=== PATIENT | male | born 1970 | race Caucasian/White ===

== ENCOUNTER 2019-11-13 07:50 | Outpatient (RCR) | payer SELFPAY | END 2019-11-26 00:01 | LOC: WOUND 07:50 | PROVIDERS: Visit Provider Nurse Practitioner Family | DX: E11.621 Type 2 diabetes mellitus with foot ulcer (principal); L97.522 Non-pressure chronic ulcer of other part of left foot with fat layer exposed; L97.423 Non-pressure chronic ulcer of left heel and midfoot with necrosis of muscle; T81.89XA Other complications of procedures, not elsewhere classified, initial encounter; Y83.8 Other surgical procedures as the cause of abnormal reaction of the patient, or of later complication, without mention of misadventure at the time of the procedure | CPT/HCPCS: 11043; 80053; 85025; 96365 ×8; G0463 ×7; J0696 ×7; J2250; J2704 ×2; J3010 ==

== ENCOUNTER 2019-11-14 13:34 | Inpatient (IN) | payer SELFPAY | END 2019-11-19 13:39 | disposition home or self-care (01) | DRG 617 | PROVIDERS: Admitting Provider Student in an Organized Health Care Education/Training Program; Visit Provider Student in an Organized Health Care Education/Training Program | DX: E11.69 Type 2 diabetes mellitus with other specified complication (principal); M86.8X7 Other osteomyelitis, ankle and foot; I96 Gangrene, not elsewhere classified; Z79.4 Long term (current) use of insulin; E11.65 Type 2 diabetes mellitus with hyperglycemia; Z87.891 Personal history of nicotine dependence; Z23 Encounter for immunization ==

== ENCOUNTER 2019-11-25 08:36 | Outpatient (RCR) | payer SELFPAY | END 2019-11-26 00:01 | LOC: GILAB 08:36 | PROVIDERS: Visit Provider Student in an Organized Health Care Education/Training Program | DX: M86.8X8 Other osteomyelitis, other site (principal) | CPT/HCPCS: 36592; 80053; 85025; 96365 ×7; G0463 ×7; J0696 ×7 ==

== ENCOUNTER → 2019-11-25 | Outpatient (CLI) | payer SELFPAY | PROVIDERS: Visit Provider Podiatrist Foot & Ankle Surgery | DX: Z98.890 Other specified postprocedural states (principal) | CPT/HCPCS: L4361 ==

== ENCOUNTER 2019-12-05 15:00 | Outpatient (RCR) | payer MEDICAID, SELFPAY ==
[2019-11-27 08:52] VITALS: BP 123/86; PULSE 100; RESP 18; O2SAT 100; BMI 26.6
[2019-11-27] MEDS: cefTRIAXone 1,000 MG in sodium chloride 0.9% (plus) 50 ML 100 MG IV (09:00)
[2019-11-27 09:32] VITALS: BP 123/86; PULSE 100; RESP 18; TEMP 36.5; O2SAT 100
[2019-11-28 09:44] VITALS: BP 117/74; PULSE 104; RESP 20; TEMP 37.3; O2SAT 95
[2019-11-28] MEDS: cefTRIAXone 1,000 MG in sodium chloride 0.9% (plus) 50 ML 100 MG IV (09:44)
[2019-11-28 10:22] LABS: Alanine Aminotransferase 5 U/L (0-41); Albumin Level 4.8 g/dL (3.5-5.2); Alkaline Phosphatase 78 IU/L (40-130); Anion Gap 17.3 (5-19); Aspartate Amino Transferase 10 U/L (0-40); Blood Urea Nitrogen 10 mg/dL (6-20); Calcium 9.5 mg/Dl (8.6-10.0); Carbon Dioxide 27 mmol/L (22-29); Chloride 103 mmol/L (98-107); Globulin 1.9 g/dL (1.3-4.6); Glomerular Filtration Rate 90.4 mL/min (90-130); Glucose 168 mg/dL (74-109); Potassium 4.3 mmol/L (3.5-5.1); Sodium 143 mmol/L (136-145); Total Bilirubin 0.3 mg/dL (0.15-1.2); Total Protein 6.7 g/dL (6.6-8.7)
[2019-11-28 10:23] LABS: Hematocrit 41.4 % (42.0-52.0); Hemoglobin 13.6 g/dL (11.7-16.6); Mean Corpuscular HGB Conc 32.9 g/dL (30.0-36.0); Mean Corpuscular Hemoglobin 27.8 pg (28.0-34.0); Mean Corpuscular Volume 84.7 fL (80-94); Mean Platelet Volume 12.1 fL (7.4-10.4); Platelet Count 177 10^3/cmm (130-400); Red Blood Count 4.89 10^6/uL (4.1-5.3); Red Cell Distribution Width 13.3 % (12.1-15.1); White Blood Count 6.8 10^3/uL (4.0-10.0)
[2019-11-28 10:30] LABS: Absolute Eosinophils 0.6 10^3/cmm (0.0-0.7); Absolute Segmented Neutrophil 3.7 10/cmm (1.6-7.1); Band Neutrophils Absolute 0.3 10^3/cmm (0.0-1.2); Basophils Absolute 0.1 10^3/cmm (0.0-0.2); Eosinophils 9 %; Lymphocytes 20 %; Monocytes Absolute 0.7 10^3/cmm (0.1-0.6); Segmented Neutrophils 55 %; Total Cells Counted 100 (0-100)
[2019-11-28 10:31] LABS: Giant Platelets 1+; Platelet Estimate Normal (Normal)
[2019-11-29 08:52] VITALS: BP 130/86; PULSE 72; RESP 18; TEMP 36.8; O2SAT 97
[2019-11-29] MEDS: cefTRIAXone 1,000 MG in sodium chloride 0.9% (plus) 50 ML 100 MG IV (09:28)
[2019-11-30 08:40] VITALS: BP 141/88; PULSE 97; RESP 18; TEMP 36.1; O2SAT 97
[2019-11-30] MEDS: cefTRIAXone 1,000 MG in sodium chloride 0.9% (plus) 50 ML 100 MG IV (09:00)
[2019-12-01] MEDS: cefTRIAXone 1,000 MG in sodium chloride 0.9% (plus) 50 ML 100 MG IV (08:34)
[2019-12-01 08:43] VITALS: BP 139/87; PULSE 95; RESP 18; TEMP 36.7; O2SAT 98
[2019-12-02] MEDS: cefTRIAXone 1,000 MG in sodium chloride 0.9% (plus) 50 ML 100 MG IV (09:00)
[2019-12-02 09:14] VITALS: BP 130/89; PULSE 94; RESP 18; TEMP 37.1; O2SAT 98
--- NOTE | 2019-12-02 09:54 | SUR.OPER ---
RIGHT UPPER ARM CIRCUMFERENCE 31CM. PICC LINE FLUSHED WITH 10ML OF STERILE SALINE. PT DC'ED IN STABLE CONDITION.
[2019-12-03 08:40] VITALS: BP 136/84; PULSE 95; RESP 18; TEMP 37.1; O2SAT 99
[2019-12-03] MEDS: cefTRIAXone 1,000 MG in sodium chloride 0.9% (plus) 50 ML 100 MG IV (08:47)
[2019-12-04 08:57] VITALS: BP 131/83; PULSE 99; RESP 18; TEMP 36.8; O2SAT 98
--- NOTE | 2019-12-04 09:35 | SUR.OPER ---
RIGHT ARM CIRCUMFERENCE 31CM.
[2019-12-04] MEDS: cefTRIAXone 1,000 MG in sodium chloride 0.9% (plus) 50 ML 100 MG IV (09:54)
[2019-12-04 10:14] LABS: Basophils # 0.1 10^3/uL (0.0-0.1); Basophils % 0.8 %; Eosinophils # 0.8 10^3/uL (0.0-0.8); Hematocrit 43.7 % (42.0-52.0); Hemoglobin 14.2 g/dL (11.7-16.6); Lymphocytes # 1.5 10^3/uL (0.8-4.8); Lymphocytes % 23.5 %; Mean Corpuscular HGB Conc 32.5 g/dL (30.0-36.0); Mean Corpuscular Hemoglobin 28.7 pg (28.0-34.0); Mean Corpuscular Volume 88.3 fL (80-94); Monocytes # 0.4 10^3/uL (0.2-0.9); Monocytes % 6.7 %; Neutrophils # 3.6 10^3/uL (1.8-7.7); Neutrophils % 55.7 %; Nucleated Red Blood Cells % 0 %; Platelet Count 149 10^3/cmm (130-400); Red Blood Count 4.95 10^6/uL (4.1-5.3); Red Cell Distribution Width 13.8 % (12.1-15.1); White Blood Count 6.5 10^3/uL (4.0-10.0)
[2019-12-04 10:19] LABS: Alanine Aminotransferase 9 U/L (0-41); Albumin Level 4.2 g/dL (3.5-5.2); Alkaline Phosphatase 78 IU/L (40-130); Anion Gap 14.2 (5-19); Aspartate Amino Transferase 12 U/L (0-40); Blood Urea Nitrogen 11 mg/dL (6-20); Calcium 9.7 mg/Dl (8.6-10.0); Carbon Dioxide 30 mmol/L (22-29); Chloride 101 mmol/L (98-107); Globulin 2.7 g/dL (1.3-4.6); Glomerular Filtration Rate 120.9 mL/min (90-130); Glucose 186 mg/dL (74-109); Potassium 4.2 mmol/L (3.5-5.1); Sodium 141 mmol/L (136-145); Total Bilirubin 0.2 mg/dL (0.15-1.2); Total Protein 6.9 g/dL (6.6-8.7)
[2019-12-05 08:52] VITALS: BP 138/81; PULSE 99; RESP 18; TEMP 36.9
[2019-12-05] MEDS: cefTRIAXone 1,000 MG in sodium chloride 0.9% (plus) 50 ML 100 MG IV (09:08)
[2019-12-05 15:35] VITALS: BP 117/75; PULSE 94; RESP 18; TEMP 37.3; O2SAT 97
== END 2019-12-27 23:59 | disposition home or self-care (01) ==
LOC: OPS 15:00
PROVIDERS: Visit Provider Student in an Organized Health Care Education/Training Program
DX: M86.9 Osteomyelitis, unspecified (principal)
CPT/HCPCS: 36415; 36592; 80053; 85007; 85025; 85027; 96365; J0696

== ENCOUNTER 2019-12-06 12:18 | Outpatient (RCR) | payer OTHER, SELFPAY | END 2019-12-06 12:18 | disposition home or self-care (01) | LOC: GILAB 12:18 | PROVIDERS: Visit Provider Podiatrist Foot & Ankle Surgery | DX: M86.9 Osteomyelitis, unspecified (principal) ==

== ENCOUNTER 2020-05-05 13:21 | Outpatient (CLI) | payer MEDICAID, SELFPAY ==
--- NOTE | 2020-05-05 13:27 | USCV_ITS ---
Jose Juan Collins Age: 50 Gender: M : 1970 Exam Date: 05/05/2020 13:34 Ordering Phys: Ty Andre NP Technologist: Cristina Pelayo Exam Location: [facility] [place] BP: 115 / 60 HR: 93 Rhythm: Sinus Technical Quality: Adequate MEASUREMENTS (Male / Female) Normal Values 2D ECHO LV Diastolic Diameter PLAX 5.0 cm 4.2 - 5.9 / 3.9 - 5.3 cm LV Systolic Diameter PLAX 4.1 cm LV Chamber Size 4.4 cm IVS Diastolic Thickness 1.6 cm 0.6 - 1.0 / 0.6 - 0.9 cm IVS Systolic Thickness 1.6 cm LVPW Diastolic Thickness 2.3 cm 0.6 - 1.0 / 0.6 - 0.9 cm LVPW Systolic Thickness 1.5 cm RV Chamber Size 2.3 cm LVOT Diameter 2.0 cm LV Ejection Fraction 2D Teich 36.8 % LV Ejection Fraction MOD 2C 53.1 % LV Ejection Fraction 2C AL 52.4 % LA Diameter 4.4 cm LA Width 2.5 cm LA Height 4.7 cm RA Width 2.5 cm RA Height 4.4 cm Aorta at Sinotubular Diameter 3.6 cm M-MODE LV Diastolic Diameter MM 6.2 cm 4.2 - 5.9 / 3.9 - 5.3 cm LV Systolic Diameter MM 4.3 cm LV Ejection Fraction MM Teich 58.6 % IVS Diastolic Thickness MM 1.0 cm 0.6 - 1.0 / 0.6 - 0.9 cm IVS Systolic Thickness MM 1.1 cm LVPW Diastolic Thickness MM 0.8 cm 0.6 - 1.0 / 0.6 - 0.9 cm LVPW Systolic Thickness MM 1.5 cm Aortic Annulus Diameter 3.9 cm LA Ao Ratio MM 1.1 MV E Point Septal Separation 0.9 cm DOPPLER AV Peak Velocity 126.0 cm/s LVOT Peak Velocity 94.0 cm/s AV Area Cont Eq vti 2.5 cm squared AV Area Cont Eq pk 2.4 cm squared MV Area PHT 4.5 cm squared Mitral E to A Ratio 0.8 MV E' Velocity 46.0 cm/s Mitral E to MV E' Ratio 4.6 Mitral E to LV E' Lateral Ratio 4.1 Mitral E to LV E' Septal Ratio 5.2 TR Peak Velocity 187.0 cm/s TR Peak Gradient 14.0 mmHg TV Peak E Velocity 70.0 cm/s Right Atrial Pressure 3.0 mmHg Pulmonary Artery Systolic Pressu 17.0 mmHg PV Peak Velocity 84.0 cm/s RV Acceleration Time 0.1 s RV Ejection Time 0.2 s RV AcT/ET 0.5 FINDINGS Left Ventricle Normal left ventricular size, systolic function and wall thickness, with no regional wall motion abnormalities. Normal left ventricular wall thickness. Normal diastolic filling pattern. Left ventricular ejection fraction is estimated at 60 %. Right Ventricle The right ventricle is normal in size and function. Right Atrium The right atrium is normal in size. Left Atrium The left atrium is normal in size. Mitral Valve Structurally normal mitral valve without significant stenosis or prolapse. There is no mitral regurgitation. Aortic Valve Structurally normal aortic valve without significant sclerosis or stenosis. There is no aortic regurgitation. Tricuspid Valve Structurally normal tricuspid valve without significant stenosis or regurgitation. Pulmonary artery systolic pressure is normal. Pulmonic Valve Structurally normal pulmonic valve without significant stenosis. There is no pulmonic regurgitation. Pericardium Normal pericardium without effusion. Aorta Normal ascending aorta dimension. CONCLUSIONS Normal transthoracic echocardiogram. There are no prior echocardiogram studies to compare. Dr. Marcelino Allen MD (Electronically Signed) Final Date: 05 May 2020 15:51 S
== END 2020-05-05 13:22 | disposition home or self-care (01) ==
LOC: RAD 13:23
PROVIDERS: Visit Provider Nurse Practitioner Family
DX: R55 Syncope and collapse (principal); E11.65 Type 2 diabetes mellitus with hyperglycemia
CPT/HCPCS: 93306

== ENCOUNTER 2020-11-12 09:04 | Outpatient (CLI) | payer MEDICAID, SELFPAY ==
--- NOTE | 2020-11-12 09:08 | MR_ITS ---
WS: [id number] MRI RIGHT SHOULDER HISTORY: PAIN IN RIGHT SHOULDER COMPARISON: None available. TECHNIQUE: Multiplanar sequences of the shoulder joint are submitted. Moderate AC joint hypertrophic changes. There is increased soft tissue thickening around the AC joint and bony hypertrophy encroaching upon the supraspinatus tendon. There is significant mass effect upo n the supraspinatus and a small amount of reactive fluid. Degenerative changes in involving the artic ular surfaces of the AC joint. Loss of the normal cortex. No subdeltoid bursal fluid. No os acromion. Biceps tendon remains in normal position. No rotator cuff tears are identified. No muscle atrophy or edema. Loss of cartilage and cortical irre gularity over the humeral head. There are small subchondral defects and a small amount of marrow lissa a over the posterior lateral humeral head. Early changes of osteonecrosis suspected. No loose body. N o full-thickness labral tears. MR/MR shoulder RT wo con* [id number] IMPRESSION: 1. No rotator cuff tear. 2. Moderate AC joint arthritis with encroachment and deformity of the supraspi natus tendon. 3. Degenerative changes involving the humeral head with subchondral cystic michael nges and osteonecrosis.
== END 2020-11-12 09:05 | disposition home or self-care (01) ==
LOC: RADSHAW 09:07
PROVIDERS: PCP Nurse Practitioner Family; Visit Provider Internal Medicine
DX: M13.811 Other specified arthritis, right shoulder (principal)
CPT/HCPCS: 73221

== ENCOUNTER → 2020-12-01 12:03 | Outpatient (BNVA) | payer MEDICAID, SELFPAY | PROVIDERS: PCP Nurse Practitioner Family; Visit Provider Orthopaedic Surgery | DX: M75.01 Adhesive capsulitis of right shoulder (principal); M19.011 Primary osteoarthritis, right shoulder; M25.511 Pain in right shoulder | CPT/HCPCS: 73030 ==

== ENCOUNTER 2020-12-10 12:47 | Outpatient (CLI) | payer MEDICAID, SELFPAY ==
--- NOTE | 2020-12-10 12:55 | US_ITS ---
WS: [id number] INDICATION: Lump base of left neck TECHNIQUE: Ultrasound soft tissue area of concern left neck FINDINGS: Enlarged abnormal hypoechoic lymph node in the area of concern measuring 1.7 x 1.6 x 0.7 cm . Loss of the normal fatty hilum with cortical thickening. This is nonspecific and could be further e valuated with FNA/biopsy. Additional adjacent normal-appearing subcentimeter lymph nodes. US/US soft tissue head neck [id number] IMPRESSION: Enlarged hypoechoic lymph node in the area of concern measuring 1.7 x 1.6 x 0.7 CM. This is nonspecific and may be reactive but malignancy is not excluded. Re commend further evaluation with ultrasound-guided biopsy/FNA.
== END 2020-12-10 12:48 | disposition home or self-care (01) ==
LOC: US 12:48
PROVIDERS: PCP Nurse Practitioner Family; Visit Provider Internal Medicine
DX: L98.9 Disorder of the skin and subcutaneous tissue, unspecified (principal); R59.0 Localized enlarged lymph nodes
CPT/HCPCS: 76536

== ENCOUNTER 2020-12-24 07:33 | Outpatient (CLI) | payer MEDICAID, SELFPAY ==
--- NOTE | 2020-12-24 | US_ITS ---
WS: [id number] INDICATION: Enlarged LEFT supra clavicular lymph node. TECHNIQUE: Ultrasound-guided core biopsy of an enlarged left supra clavicular lymph node. Patient was prepped and draped in usual sterile fashion. Timeout was performed. After 1% lidocaine using sterile technique and ultrasound guidance, 4 20-gauge core samples were obtained of the left supraclavicular lymph node. No immediate complications. Patient remained in ultrasound Suite 20 minutes postprocedure. No active bleeding or significant hematoma. US/US biopsy [place] node [id number] IMPRESSION: Uncomplicated LEFT supraclavicular lymph node biopsy.
[2021-01-01 12:33] LABS: Miscellaneous Test See Scanned Lab Rpt
== END 2020-12-24 07:34 | disposition home or self-care (01) ==
LOC: RAD 07:35
PROVIDERS: PCP Nurse Practitioner Family; Visit Provider Nurse Practitioner Family
DX: R59.0 Localized enlarged lymph nodes (principal)
CPT/HCPCS: 38505; 76942; 88184; 88185; 88305

== ENCOUNTER 2021-01-20 10:39 | Outpatient (CLI) | payer MEDICAID, SELFPAY ==
--- NOTE | 2021-01-20 16:44 | ONC CON_ITS ---
Dr. Clark New Patient Note Patient: Jose Juan Collins Unit #: [id number]: 1970 Dicatated By: Espinoza Clark M.D.Date of Visit: Jan 20, 2021 Onc MED New Patient/Consult Referring Physician: Ty Andre N.P. History of Present Illness: Mr. Jose Juan Collins, is a 51-year-old gentleman with a history of right shoulder pain and discomfort due to arthritis noticed a small lymph node in his left neck about a month ago and mentioned to him PMD who ordered ultrasound left neck which was done on December 10, 2020 and confirmed 1.7 x 1.6 x 0.7 cm enlarged abnormal hypoechoic lymph node and on December 24, 2020 he underwent biopsy and came back as abnormal lymphoid tissue with focal necrosis and associated fibroadipose tissue flow cytometry showed rare events e.g. 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 Patient denies any history of night sweats, weight loss, recurrent fevers, denies any history of sore throat or sinusitis, denies any history of chronic bronchitis, denies any history of abdominal fullness or palpable lymph node anywhere else patient denies any history of tick bite or overseas travel. Patient denies smoking but is a former smoker and take alcohol occasionally. History of diabetes and diabetic neuropathy Past Medical History: Mr. Collins's medical history consists of type II diabetes and Covid in 2020. Past Surgical History: Mr. Collins's surgical/procedural history consists of amputation left foot, amputation of right ring finger, amputationof third toe left foot, and appendectomy. Medications: Bydureon (2 mg) Subcutaneous Take as Directed, Fludrocortisone Acetate (0.1 mg) Tablet Oral daily, Glucophage (500 mg) Tablet Oral b.i.d., Multivitamin Men Tablet Oral daily Allergies: Shellfish Social History: Mr. Collins is single and he is unemployed. Mr. Collins no longer smokes. He drinks occasionally. Family History: Mr. Collins's mother is alive. Mr. Collins's father is alive: eugenio, and hyper. Review Of Symptoms: Review of Systems is not available for this patient. Vital Signs: Performed on Jan 20, 2021 11:29: 5, 0, 0.00, 0.00 sq.m, 96 %, 87 /min, 18 /min, 120/79 mm(hg), 98.9 F (HIGH), and 208.8 lbs (HIGH). Performance Status: 0 - Fully active, able to carry on all predisease activities without restrictions. (ECOG) Physical Examination: ENMT - No mouth sores, no thrush, no jaundice, Respiratory - Lungs are clear to auscultation, Cardiovascular - Regular rate and rhythm of heart, Abdomen - Soft, bowel sounds present, Extremities - No visible edema. Lab/Imaging: Most recent lab results are not available for this patient. 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 Patient has no B symptoms e.g. no weight loss, no drenching night sweats, no recurrent fever. On exam small shotty lymph nodes palpable in right axilla otherwise unremarkable. Patient has no history of recurrent infections no history of tick bite, and is routine lab showed CBC within normal limit except platelets 144,000 and CMP within normal limit except glucose 109 At this point ,we will consider CT scan of neck, chest abdomen pelvis if it shows significant central lymphadenopathy, then will consider hold lymph node excision for better evaluation. Patient will return to clinic after CT scan of neck chest abdomen pelvis done for further work-up and discussion And if CT scan shows no central lymphadenopathy then we may consider involved lymph node excisional biopsy or observe Signed By: Espinoza Clark M.D. <<Signature on File>>
== END 2021-01-20 10:40 | disposition home or self-care (01) ==
PROVIDERS: PCP Nurse Practitioner Family; Visit Provider Internal Medicine Hematology & Oncology
DX: R59.1 Generalized enlarged lymph nodes (principal); E11.42 Type 2 diabetes mellitus with diabetic polyneuropathy; M19.011 Primary osteoarthritis, right shoulder
CPT/HCPCS: 99204

== ENCOUNTER 2021-02-09 11:50 | Outpatient (CLI) | payer MEDICAID, SELFPAY ==
[2021-02-09 12:26] LABS: Basophils # 0.1 10^3/uL (0.0-0.1); Basophils % 0.8 %; Eosinophils # 1.4 10^3/uL (0.0-0.8); Eosinophils % 18.3 %; Hematocrit 46.6 % (42.0-52.0); Hemoglobin 15.4 g/dL (11.7-16.6); Lymphocytes # 2.5 10^3/uL (0.8-4.8); Lymphocytes % 31.8 %; Mean Corpuscular Hemoglobin 29.3 pg (28.0-34.0); Mean Corpuscular Volume 88.8 fL (80-94); Mean Platelet Volume 10.9 fL (7.4-10.4); Monocytes # 0.7 10^3/uL (0.2-0.9); Monocytes % 8.4 %; Neutrophils # 3.18 10^3/uL (1.8-7.7); Neutrophils % 40.4 %; Nucleated Red Blood Cells % 0 %; Platelet Count 179 10^3/cmm (130-400); Red Blood Count 5.25 10^6/uL (4.1-5.3); Red Cell Distribution Width 13.3 % (12.1-15.1); White Blood Count 7.9 10^3/uL (4.0-10.0)
--- NOTE | 2021-02-09 12:42 | CT_ITS ---
WS: [id number] CT CHEST, ABDOMEN, AND PELVIS TECHNIQUE: Contrast-enhanced CT of the chest, abdomen, and pelvis with coronal and sagittal reformatt ed images. CLINICAL INFORMATION: ABNORMAL LYMPH NODE BX COMPARISON: None. DLP: 2016.[address] scans at [facility] use at least one of these dose optimization techniques: automat ed exposure control; mA and/or kV adjustment per patient size (includes targeted exams where dose is matched to clinical indication); or iterative reconstruction. CT CHEST: Mild chronic emphysematous changes. Calcified granulomas. Normal caliber thoracic aorta. Proximal serjio n pulmonary arteries are normal. No mediastinal or hilar lymphadenopathy. No axillary lymphadenopathy . Patchy nodular parenchymal infiltrates left lower lobe along the fissure. Findings are likely infec tious or inflammatory. Micronodular infiltrates along the right hilum. Additional hazy micronodular i nfiltrates with tree-in-bud opacities in the right lower lobe. Normal thoracic spine. CT ABDOMEN AND PELVIS: Hepatomegaly. Enlargement of the right hepatic lobe. Normal portal vein and splenic vein. Normal gall bladder. Splenomegaly measuring 17.6 cm. Normal GE junction. Normal pancreas. Adrenal glands are norm al. Normal renal parenchymal enhancement. No hydronephrosis. Normal caliber abdominal aorta. Mild aor tic calcification. A few shoddy periaortic lymph nodes. No abdominal or pelvic lymphadenopathy. Sligh tly enlarged right inguinal lymph nodes measuring 11 mm in short axis dimension. No left inguinal lym phadenopathy. Sigmoid constipation. Diffuse prominent bladder wall thickening can be seen with chronic cystitis or bladder outlet obstruction. Prostate is not significantly enlarged. A few sigmoid diverticuli. No darlyn dence of small large bowel obstruction. No free fluid in the pelvis. . Normal lumbar spine. CT/CT chest abd pel w con* IMPRESSION: 1. A few prominent inguinal lymph nodes measuring approximately 11 mm in short axis dimension. 2. Otherwise no significant adenopathy in the chest abdomen or pelvis. No axil annelise lymphadenopathy. 3. Micronodular tree-in-bud infiltrates more prominent right lower lobe. Addit ional micronodular infiltrates in the right hilum and left lower lobe along the fissure with pleural thickening. Findings are likely infectious or inflammator y in etiology. No focal pneumonia or pleural fluid. 4. No axillary lymphadenopathy. 5. Splenomegaly measuring 17.6 cm. Hepatomegaly measuring 19 cm craniocaudal 6. Diffuse bladder wall thickening can be seen with chronic cystitis or bladde r outlet obstruction. Prostate does not appear enlarged. 7. Sigmoid constipation.
[2021-02-09 12:45] LABS: Alanine Aminotransferase 25 U/L (0-41); Albumin Level 3.9 g/dL (3.5-5.2); Alkaline Phosphatase 91 IU/L (40-130); Anion Gap 13.5 (5-19); Aspartate Amino Transferase 26 U/L (0-40); Blood Urea Nitrogen 13 mg/dL (6-20); Calcium 8.7 mg/dL (8.5-10.5); Carbon Dioxide 27 mmol/L (22-29); Chloride 103 mmol/L (98-107); Globulin 3.6 g/dL (1.3-4.6); Glomerular Filtration Rate 119.9 mL/min (90-130); Glucose 95 mg/dL (65-115); Lactate Dehydrogenase 176 U/L (135-225); Osmolality Calculated 288 mOsm/kg (285-295); Potassium 4.5 mmol/L (3.5-5.1); Sodium 139 mmol/L (136-145); Total Bilirubin 0.4 mg/dL (0.15-1.2); Total Protein 7.5 g/dL (6.6-8.7)
[2021-02-09] MEDS: iohexol 300 mg/mL 50 mL Btl IV (12:58)
[2021-02-09] MEDS: iohexol 300 mg/mL 100 mL Btl IV (14:40)
== END 2021-02-09 11:51 | disposition home or self-care (01) ==
LOC: ONCMED 11:50
PROVIDERS: PCP Nurse Practitioner Family; Visit Provider Internal Medicine Hematology & Oncology
DX: R89.7 Abnormal histological findings in specimens from other organs, systems and tissues (principal); R59.0 Localized enlarged lymph nodes
CPT/HCPCS: 36415; 71260; 74177; 80053; 83615; 85025; Q9967

== ENCOUNTER 2021-02-12 13:57 | Outpatient (CLI) | payer MEDICAID, SELFPAY ==
--- NOTE | 2021-02-12 14:03 | CT_ITS ---
WS: [id number] CT neck w con* [id number] REASON FOR EXAM: ABNORMAL LYMPH NODE BX IV CONTRAST ADMINISTERED: 95 mL of Omnipaque 300 TOTAL EXAM DLP: 810.[address] scans at [facility] use at least one of these dose optimization techniques: automat ed exposure control; mA and/or kV adjustment per patient size (includes targeted exams where dose is matched to clinical indication); or iterative reconstruction. FINDINGS: The cervical spine demonstrates moderate changes of degenerative spondylosis C5-C7. The parotid and submandibular salivary glands are normal. The glottic, supraglottic and infraglottic regions are within normal limits. No abnormality of the oral or nasopharynx. The epiglottis and base of the tongue appear normal. The thyroid gland is unremarkable. No significant cervical adenopathy is identified. CT/CT neck w con* [id number] IMPRESSION: No significant abnormality of the neck identified.
[2021-02-12] MEDS: iohexol 300 mg/mL 100 mL Btl IV (14:35)
== END 2021-02-12 13:58 | disposition home or self-care (01) ==
LOC: CT 14:00
PROVIDERS: PCP Nurse Practitioner Family; Visit Provider Internal Medicine Hematology & Oncology
DX: R59.0 Localized enlarged lymph nodes (principal)
CPT/HCPCS: 70491

== ENCOUNTER 2021-02-23 05:50 | Outpatient (CLI) | payer MEDICAID, SELFPAY ==
--- NOTE | 2021-02-23 09:26 | ONC FU_ITS ---
Dr. Clark follow up note Patient: Jose Juan Collins Unit #: [id number]: 1970 Dicatated By: Espinoza Clark M.D.Date of Visit:Feb 23, 2021 Onc Med Follow-up/Prog Note History of Present Illness: Mr. Jose Juan Collins, is a 51-year-old gentleman with a history of right shoulder pain and discomfort due to arthritis noticed a small lymph node in his left neck about a month ago and mentioned to him PMD who ordered ultrasound left neck which was done on December 10, 2020 and confirmed 1.7 x 1.6 x 0.7 cm enlarged abnormal hypoechoic lymph node and on December 24, 2020 he underwent biopsy and came back as abnormal lymphoid tissue with focal necrosis and associated fibroadipose tissue flow cytometry showed rare events e.g. 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 Patient denies any history of night sweats, weight loss, recurrent fevers, denies any history of sore throat or sinusitis, denies any history of chronic bronchitis, denies any history of abdominal fullness or palpable lymph node anywhere else patient denies any history of tick bite or overseas travel. Patient denies smoking but is a former smoker and take alcohol occasionally. History of diabetes and diabetic neuropathy CT scan of the neck chest abdomen pelvis done on February 12, 2021 showed no cervical lymphadenopathy identified, moderate changes of degenerative spondylosis C5 -C7 CT scan of chest abdomen pelvis done on February 09, 2021 showed a few prominent inguinal lymph nodes measuring approximately 11 mm. No significant lymphadenopathy noticed in the chest abdomen pelvis, no axillary lymphadenopathy. Micronodular tree-in-bud infiltrates more prominent right lower lobe. Additional micronodular infiltrate in the right hilum and left lower lobe along the fissure with pleural thickening. ( Patient said he is allergic to hay and mold and he is in beef cattle business) There is evidence of mild hepatosplenomegaly liver 19 cm, spleen 17.6 cm. (Patient has history of morbid obesity, now Trying to lose weight) Came for follow-up, denies any specific complaints today denies any night sweats denies any abdominal fullness denies any peripheral lymphadenopathy denies any recurrent fever denies any nausea or vomiting or abdominal pain. Medications: Bydureon (2 mg) Subcutaneous Take as Directed, Fludrocortisone Acetate (0.1 mg) Tablet Oral daily, Glucophage (500 mg) Tablet Oral b.i.d., Multivitamin Men Tablet Oral daily Allergies: Shellfish Review of Systems: Review of Systems is not available for this patient. Vital Signs: Performed on Feb 23, 2021 08:42 Weight - 200 lbs (LOW) BSA - 0.00 sq.m BMI - 0.00 Temperature - 99.4 F (HIGH) Pulse - 94 /min Respiration - 18 /min BP - 129/65 mm(hg) O2 Sat - 100 % Pain - 5 Fatigue - 7 Performance Status: 0 - Fully active, able to carry on all predisease activities without restrictions. (ECOG) Physical Examination: ENMT - No mouth sores, no thrush, no jaundice no cervical lymphadenopathy, Respiratory - Lungs are clear to auscultation, Cardiovascular - Regular rate and rhythm of heart, Abdomen - Soft, bowel sounds present, Extremities - No visible edema. Lab/Imaging: Most recent lab results are not available for this patient. 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 Mild to moderate hepatosplenomegaly Micronodular tree-in-bud infiltrates more prominent in the right lower lobe, additional micronodular infiltrate in the right hilum and left lobe along with fissure and pleural thickening, radiological impression infectious or inflammatory etiology Diffuse bladder wall thickening, ?chronic cystitis, prostate does not appear enlarged. History of diabetes, diabetic neuropathy Right shoulder pain due to arthritis Plan: Discussed with patient regarding his labs white blood count 7.9 hemoglobin 15.4 hematocrit 46.6 platelets 179,000 with normal differential CMP within normal limits LDH [address] scan of neck chest abdomen pelvis findings which showed mild to moderate hepatosplenomegaly and few prominent inguinal lymph node otherwise no evidence of central lymphadenopathy Clinically, patient doing well with no B symptoms suggestive of lymphoproliferative disorder on exam there is no peripheral lymphadenopathy and CT scan of neck chest abdomen pelvis shows no cervical or central or axillary lymphadenopathy but few prominent inguinal lymph nodes measuring 11 mm and his lab work-up is also within normal range, white blood count in normal range with a normal differential, LDH is normal. Etiology of hepatosplenomegaly is unclear, patient has history of morbid obesity now losing weight could be resolving fatty liver or early lymphoproliferative disorder but less likely, will monitor and consider abdomen sonogram in 3 months with special attention to liver and spleen size. Micronodular in bilateral lung, patient is a former and raise beef cattle and has history of allergies to mold and hay, we will also repeat chest x-ray before his visit to clinic in 3 months with CBC CMP and LDH. Signed By: Espinoza Clark M.D. <<Signature on File>>
== END 2021-02-23 05:51 | disposition home or self-care (01) ==
LOC: ONCMED 05:51
PROVIDERS: PCP Nurse Practitioner Family; Visit Provider Internal Medicine Hematology & Oncology
DX: R59.0 Localized enlarged lymph nodes (principal); R16.2 Hepatomegaly with splenomegaly, not elsewhere classified; R91.8 Other nonspecific abnormal finding of lung field; E11.40 Type 2 diabetes mellitus with diabetic neuropathy, unspecified; M19.011 Primary osteoarthritis, right shoulder; Z86.39 Personal history of other endocrine, nutritional and metabolic disease
CPT/HCPCS: 99214

== ENCOUNTER 2021-05-20 08:21 | Outpatient (CLI) | payer MEDICAID, SELFPAY ==
--- NOTE | 2021-05-20 08:40 | US_ITS ---
WS: [id number] Complete ABDOMINAL ULTRASOUND HISTORY: ENLARGED SPLEEN COMPARISON: CT 02/09/2021 Liver: 16.4 cm in length. Liver is normal size and echogenicity with no mass or intrahepatic dilatati on. Gallbladder: Normally distended gallbladder with numerous stones. There is also a nonshadowing soft t issue nodule measuring by 4 mm consistent with a polyp. No pericholecystic fluid or gallbladder wall thickening. Gallbladder wall thickness: 0.1 cm. Pancreas: Normal size and echogenicity. CBD: 0.4 cm. Right kidney: 11.0 cm x 5.7 cm x 5.3 cm. No mass, cortical thickening or hydronephrosis. Left kidney: 12.2 cm x 6.1 cm x 5.2 cm. No mass, cortical thickening or hydronephrosis. Spleen: Top normal size at 13.2 cm in length. Abdominal aorta and IVC are within normal limits. No ascites. US/US abdomen complete* [id number] IMPRESSION: 1. Cholelithiasis without cholecystitis. 2. 4 x 4 mm hyperplastic gallbladder polyp. 3. Spleen is top normal size at 13.2 cm in length. Otherwise negative.
== END 2021-05-20 08:22 | disposition home or self-care (01) ==
PROVIDERS: PCP Nurse Practitioner Family; Visit Provider Internal Medicine Hematology & Oncology
DX: J90 Pleural effusion, not elsewhere classified (principal); R16.1 Splenomegaly, not elsewhere classified; K80.20 Calculus of gallbladder without cholecystitis without obstruction
CPT/HCPCS: 76700

== ENCOUNTER 2021-05-24 10:49 | Outpatient (CLI) | payer MEDICAID, SELFPAY ==
[2021-05-24 11:12] LABS: Basophils # 0.1 10^3/uL (0.0-0.1); Basophils % 0.6 %; Eosinophils # 0.8 10^3/uL (0.0-0.8); Eosinophils % 9.7 %; Hematocrit 43.2 % (42.0-52.0); Hemoglobin 14.4 g/dL (11.7-16.6); Lymphocytes # 2.3 10^3/uL (0.8-4.8); Mean Corpuscular HGB Conc 33.3 g/dL (30.0-36.0); Mean Corpuscular Hemoglobin 30.8 pg (28.0-34.0); Mean Corpuscular Volume 92.5 fL (80-94); Monocytes # 0.5 10^3/uL (0.2-0.9); Monocytes % 6.9 %; Neutrophils # 4.09 10^3/uL (1.8-7.7); Neutrophils % 52.4 %; Nucleated Red Blood Cells % 0 %; Platelet Count 159 10^3/cmm (130-400); Red Blood Count 4.67 10^6/uL (4.1-5.3); Red Cell Distribution Width 12.8 % (12.1-15.1); White Blood Count 7.8 10^3/uL (4.0-10.0)
[2021-05-24 11:45] LABS: Alanine Aminotransferase 32 U/L (0-41); Albumin Level 3.9 g/dL (3.5-5.2); Alkaline Phosphatase 69 IU/L (40-130); Anion Gap 10.7 (5-19); Aspartate Amino Transferase 25 U/L (0-40); Blood Urea Nitrogen 18 mg/dL (6-20); Calcium 8.7 mg/dL (8.5-10.5); Carbon Dioxide 29 mmol/L (22-29); Chloride 105 mmol/L (98-107); Globulin 2.4 g/dL (1.3-4.6); Glomerular Filtration Rate 119.9 mL/min (90-130); Glucose 113 mg/dL (65-115); Lactate Dehydrogenase 159 U/L (135-225); Osmolality Calculated 293 mOsm/kg (285-295); Potassium 4.7 mmol/L (3.5-5.1); Sodium 140 mmol/L (136-145); Total Bilirubin 0.2 mg/dL (0.15-1.2); Total Protein 6.3 g/dL (6.6-8.7)
--- NOTE | 2021-05-24 13:18 | ONC FU_ITS ---
Dr. Clark follow up note Patient: Jose Juan Collins Unit #: [id number]: 1970 Dicatated By: Espinoza Clark M.D.Date of Visit:May 24, 2021 Onc Med Follow-up/Prog Note History of Present Illness: Mr. Jose Juan Collins, is a 51-year-old gentleman with a history of right shoulder pain and discomfort due to arthritis noticed a small lymph node in his left neck about a month ago and mentioned to him PMD who ordered ultrasound left neck which was done on December 10, 2020 and confirmed 1.7 x 1.6 x 0.7 cm enlarged abnormal hypoechoic lymph node and on December 24, 2020 he underwent biopsy and came back as abnormal lymphoid tissue with focal necrosis and associated fibroadipose tissue flow cytometry showed rare events e.g. 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 Patient denies any history of night sweats, weight loss, recurrent fevers, denies any history of sore throat or sinusitis, denies any history of chronic bronchitis, denies any history of abdominal fullness or palpable lymph node anywhere else patient denies any history of tick bite or overseas travel. Patient denies smoking but is a former smoker and take alcohol occasionally. History of diabetes and diabetic neuropathy CT scan of the neck chest abdomen pelvis done on February 12, 2021 showed no cervical lymphadenopathy identified, moderate changes of degenerative spondylosis C5 -C7 CT scan of chest abdomen pelvis done on February 09, 2021 showed a few prominent inguinal lymph nodes measuring approximately 11 mm. No significant lymphadenopathy noticed in the chest abdomen pelvis, no axillary lymphadenopathy. Micronodular tree-in-bud infiltrates more prominent right lower lobe. Additional micronodular infiltrate in the right hilum and left lower lobe along the fissure with pleural thickening. ( Patient said he is allergic to hay and mold and he is in beef cattle business) There is evidence of mild hepatosplenomegaly liver 19 cm, spleen 17.6 cm. (Patient has history of morbid obesity, now Trying to lose weight), Repeat abdominal sonogram done on May 20, 2021 shows liver and normal size and echogenicity, spleen is also top normal size otherwise negative, incidental finding of cholelithiasis without cholecystitis and a 4 x 4 millimeter hyperplastic gallbladder polyp Came for follow-up, denies any specific complaints, no fever chills, no nausea or vomiting, no diarrhea or constipation, no melena or hematochezia, no night sweats, no weight loss, no recurrent fever, no peripheral lymphadenopathy, no abdominal fullness, overall patient is feeling well Medications: Multivitamin Men Tablet Oral daily, Victoza 1.2 mg (of 18 mg/3mL) Subcutaneous daily Allergies: Shellfish Review of Systems: Review of Systems is not available for this patient. Vital Signs: Performed on May 24, 2021 12:59 Height - 73.00 in Weight - 208.0 lbs (HIGH) BSA - 2.19 sq.m BMI - 27.44 Temperature - 99.4 F (HIGH) Pulse - 91 /min Respiration - 18 /min BP - 146/82 mm(hg) (HIGH) O2 Sat - 99 % Pain - 0 Performance Status: 0 - Fully active, able to carry on all predisease activities without restrictions. (ECOG) Physical Examination: ENMT - No mouth sores, no thrush, no jaundice, no cervical or axillary lymphadenopathy, Respiratory - Lungs are clear to auscultation, Cardiovascular - Regular rate and rhythm of heart, Abdomen - Soft, bowel sounds present, Extremities - No visible edema or rash. Lab/Imaging: Most recent lab results are not available for this patient. 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 Mild to moderate hepatosplenomegaly Micronodular tree-in-bud infiltrates more prominent in the right lower lobe, additional micronodular infiltrate in the right hilum and left lobe along with fissure and pleural thickening, radiological impression infectious or inflammatory etiology Diffuse bladder wall thickening, ?chronic cystitis, prostate does not appear enlarged. History of diabetes, diabetic neuropathy Right shoulder pain due to arthritis Plan: Discussed with patient regarding his labs white blood count 7.8 hemoglobin 14.4 hematocrit 43.2 platelets 159,000 CMP within normal limits including LDH, follow-up abdominal sonogram done on May 20, 2021 showed no evidence of hepatosplenomegaly, incidental finding of gallstones without cholecystitis. Clinically, patient doing well with no new signs symptom, no B symptoms suggestive of recurrence of disease or disease progression or lymphoproliferative disorder, on exam no evidence of peripheral lymphadenopathy or organomegaly, his follow-up abdominal sonogram shows resolution of mild/moderate hepatosplenomegaly seen on CT scan of abdomen., At this point no further work-up rather follow-up in 6 months with CBC CMP, LDH, patient was advised to call in case he has any recurrent fever or weight loss or drenching night sweats or palpable peripheral lymphadenopathy. Signed By: Espinoza Clark M.D. <<Signature on File>>
== END 2021-05-24 10:50 | disposition home or self-care (01) ==
LOC: ONCMED 10:51
PROVIDERS: PCP Nurse Practitioner Family; Visit Provider Internal Medicine Hematology & Oncology
DX: R59.0 Localized enlarged lymph nodes (principal); R16.2 Hepatomegaly with splenomegaly, not elsewhere classified; R91.1 Solitary pulmonary nodule; E11.42 Type 2 diabetes mellitus with diabetic polyneuropathy; M19.011 Primary osteoarthritis, right shoulder; Z79.899 Other long term (current) drug therapy
CPT/HCPCS: 36415; 80053; 83615; 85025; 99214

== ENCOUNTER 2021-10-19 13:07 | Outpatient (CLI) | payer MEDICAID, SELFPAY | END 2021-10-19 13:08 | disposition home or self-care (01) | LOC: WOUND 13:08 | PROVIDERS: PCP Nurse Practitioner Family; Visit Provider Nurse Practitioner Family | DX: E11.621 Type 2 diabetes mellitus with foot ulcer (principal); L97.522 Non-pressure chronic ulcer of other part of left foot with fat layer exposed; Z87.891 Personal history of nicotine dependence | CPT/HCPCS: 11042; G0463 ==

== ENCOUNTER 2021-10-19 16:04 | Outpatient (CLI) | payer MEDICAID, SELFPAY ==
--- NOTE | 2021-10-19 16:15 | XRR_ITS ---
PROCEDURE INFORMATION: Exam: XR Left Foot Exam date and time: 10/19/2021 4:15 PM Age: 51 years old Clinical indication: Condition or disease; Other: Ulcer; Prior surgery; Surgery type: Metatarsal amputation of lt foot; Patient HX: Blister on distal lt foot x 2 months. PT HX of diabetes. Metatarsal amputation happened after PT encountered last blister 2 yrs ago. TECHNIQUE: Imaging protocol: XR Left foot. Views: 3 or more views. COMPARISON: CR Foot 3 views, LEFT* [id number] 11/17/2019 1:18 PM FINDINGS: Bones/joints: Amputation changes through the mid metatarsal shafts of the 1st through 5th digits. The residual osseous structures are intact without fracture or irregular osseous erosions. Soft tissues: Normal. XR/XR foot LT min 3V* [id number] IMPRESSION: No evidence of osteomyelitis. Radiation Dose CTDIVOL = (mGy): DLP = (mGy-cm)
== END 2021-10-19 16:05 | disposition home or self-care (01) ==
PROVIDERS: PCP Nurse Practitioner Family; Visit Provider Nurse Practitioner Family
DX: E11.621 Type 2 diabetes mellitus with foot ulcer (principal)
CPT/HCPCS: 73630

== ENCOUNTER 2021-10-26 13:06 | Outpatient (CLI) | payer MEDICAID, SELFPAY | END 2021-10-26 13:07 | disposition home or self-care (01) | LOC: WOUND 13:07 | PROVIDERS: PCP Nurse Practitioner Family; Visit Provider Nurse Practitioner Family | DX: I96 Gangrene, not elsewhere classified (principal); E11.621 Type 2 diabetes mellitus with foot ulcer; L97.522 Non-pressure chronic ulcer of other part of left foot with fat layer exposed; Z87.891 Personal history of nicotine dependence | CPT/HCPCS: 11042 ==

== ENCOUNTER 2021-11-02 09:34 | Outpatient (CLI) | payer MEDICAID, SELFPAY | END 2021-11-02 09:35 | disposition home or self-care (01) | LOC: WOUND 09:35 | PROVIDERS: PCP Nurse Practitioner Family; Visit Provider Thoracic Surgery (Cardiothoracic Vascular Surgery) | DX: E11.621 Type 2 diabetes mellitus with foot ulcer (principal); L97.522 Non-pressure chronic ulcer of other part of left foot with fat layer exposed; Z87.891 Personal history of nicotine dependence | CPT/HCPCS: 11042; A6021 ==

== ENCOUNTER 2021-11-09 08:57 | Outpatient (CLI) | payer MEDICAID, SELFPAY | END 2021-11-09 08:58 | disposition home or self-care (01) | LOC: WOUND 08:57 | PROVIDERS: PCP Nurse Practitioner Family; Visit Provider Thoracic Surgery (Cardiothoracic Vascular Surgery) | DX: E11.621 Type 2 diabetes mellitus with foot ulcer (principal); L97.522 Non-pressure chronic ulcer of other part of left foot with fat layer exposed; T25.231A Burn of second degree of right toe(s) (nail), initial encounter; X08.8XXA Exposure to other specified smoke, fire and flames, initial encounter; Z87.891 Personal history of nicotine dependence | CPT/HCPCS: 97597; A6021 ==

== ENCOUNTER 2021-11-16 09:12 | Outpatient (CLI) | payer MEDICAID, SELFPAY | END 2021-11-16 09:13 | disposition home or self-care (01) | LOC: WOUND 09:13 | PROVIDERS: PCP Nurse Practitioner Family; Visit Provider Nurse Practitioner Family | DX: I96 Gangrene, not elsewhere classified (principal); E11.621 Type 2 diabetes mellitus with foot ulcer; L97.521 Non-pressure chronic ulcer of other part of left foot limited to breakdown of skin; T25.321A Burn of third degree of right foot, initial encounter; X08.8XXA Exposure to other specified smoke, fire and flames, initial encounter; Z87.891 Personal history of nicotine dependence | CPT/HCPCS: 11042 ==

== ENCOUNTER 2021-11-23 08:34 | Outpatient (CLI) | payer MEDICAID, SELFPAY | END 2021-11-23 08:35 | disposition home or self-care (01) | LOC: WOUND 08:34 | PROVIDERS: PCP Nurse Practitioner Family; Visit Provider Nurse Practitioner Family | DX: E11.621 Type 2 diabetes mellitus with foot ulcer (principal); L97.522 Non-pressure chronic ulcer of other part of left foot with fat layer exposed; L97.511 Non-pressure chronic ulcer of other part of right foot limited to breakdown of skin; Z87.891 Personal history of nicotine dependence | CPT/HCPCS: 11042 ==

== ENCOUNTER 2021-11-23 11:40 | Outpatient (CLI) | payer MEDICAID, SELFPAY ==
[2021-11-23 12:00] LABS: Basophils # 0.1 10^3/uL (0.0-0.1); Basophils % 0.6 %; Eosinophils # 1.3 10^3/uL (0.0-0.8); Eosinophils % 10.7 %; Hematocrit 42.9 % (42.0-52.0); Hemoglobin 14.4 g/dL (11.7-16.6); Lymphocytes # 1.8 10^3/uL (0.8-4.8); Lymphocytes % 15.4 %; Mean Corpuscular HGB Conc 33.6 g/dL (30.0-36.0); Mean Corpuscular Hemoglobin 31.3 pg (28.0-34.0); Mean Corpuscular Volume 93.3 fl (80-94); Mean Platelet Volume 10.6 fL (7.4-10.4); Monocytes # 0.9 10^3/uL (0.2-0.9); Monocytes % 7.3 %; Neutrophils # 7.74 10^3/uL (1.8-7.7); Neutrophils % 65.4 %; Nucleated Red Blood Cells % 0 %; Platelet Count 165 10^3/cmm (130-400); Red Cell Distribution Width 12.7 % (12.1-15.1); White Blood Count 11.8 10^3/uL (4.0-10.0)
[2021-11-23 12:27] LABS: Alanine Aminotransferase 34 U/L (0-41); Albumin Level 3.8 g/dL (3.5-5.2); Alkaline Phosphatase 87 IU/L (40-130); Aspartate Amino Transferase 27 U/L (0-40); Blood Urea Nitrogen 14 mg/dL (6-20); Calcium 8.3 mg/dL (8.5-10.5); Carbon Dioxide 24 mmol/L (22-29); Chloride 105 mmol/L (98-107); Globulin 2.8 g/dL (1.3-4.6); Glomerular Filtration Rate 119.9 mL/min (90-130); Glucose 216 mg/dL (65-115); Osmolality Calculated 295 mOsm/kg (285-295); Sodium 139 mmol/L (136-145); Total Bilirubin 0.2 mg/dL (0.15-1.2); Total Protein 6.6 g/dL (6.6-8.7)
[2021-11-23 12:31] LABS: Anion Gap 14.8 (5-19); Lactate Dehydrogenase 207 U/L (135-225); Potassium 4.8 mmol/L (3.5-5.1)
--- NOTE | 2021-11-23 16:54 | ONC FU_ITS ---
Dr. Clark follow up note Patient: Jose Juan Collins Unit #: [id number]: 1970 Dicatated By: Espinoza Clark M.D.Date of Visit:Nov 23, 2021 Onc Med Follow-up/Prog Note History of Present Illness: Mr. Jose Juan Collins, is a 51-year-old gentleman with a history of right shoulder pain and discomfort due to arthritis noticed a small lymph node in his left neck about a month ago and mentioned to him PMD who ordered ultrasound left neck which was done on December 10, 2020 and confirmed 1.7 x 1.6 x 0.7 cm enlarged abnormal hypoechoic lymph node and on December 24, 2020 he underwent biopsy and came back as abnormal lymphoid tissue with focal necrosis and associated fibroadipose tissue flow cytometry showed rare events e.g. 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 Patient denies any history of night sweats, weight loss, recurrent fevers, denies any history of sore throat or sinusitis, denies any history of chronic bronchitis, denies any history of abdominal fullness or palpable lymph node anywhere else patient denies any history of tick bite or overseas travel. Patient denies smoking but is a former smoker and take alcohol occasionally. History of diabetes and diabetic neuropathy, Involving lower extremities, status post left transmetatarsal amputation CT scan of the neck chest abdomen pelvis done on February 12, 2021 showed no cervical lymphadenopathy identified, moderate changes of degenerative spondylosis C5 -C7 CT scan of chest abdomen pelvis done on February 09, 2021 showed a few prominent inguinal lymph nodes measuring approximately 11 mm. No significant lymphadenopathy noticed in the chest abdomen pelvis, no axillary lymphadenopathy. Micronodular tree-in-bud infiltrates more prominent right lower lobe. Additional micronodular infiltrate in the right hilum and left lower lobe along the fissure with pleural thickening. ( Patient said he is allergic to hay and mold and he is in beef cattle business) There is evidence of mild hepatosplenomegaly liver 19 cm, spleen 17.6 cm. (Patient has history of morbid obesity, now Trying to lose weight), Repeat abdominal sonogram done on May 20, 2021 shows liver and normal size and echogenicity, spleen is also top normal size otherwise negative, incidental finding of cholelithiasis without cholecystitis and a 4 x 4 millimeter hyperplastic gallbladder polyp Came for follow-up, denies any specific complaint except 2-month history of left foot blister/infection, now being treated by wound care clinic and last month he got burn injury to right foot, now being treated at wound clinic as per patient because of severe neuropathy involving lower extremities he could not feel any injury related to pain. In August he had episode of acute sinusitis which was treated with oral antibiotics. Otherwise denies any night sweats denies any peripheral lymphadenopathy or abdominal fullness. Denies any fever chills, no nausea or vomiting, no diarrhea or constipation, no weight loss, appetite is good. Medications: Flonase (50 mcg/act) Suspension Nasal Take as Directed, Multivitamin Men Tablet Oral daily, Requip 1 Tablet Oral at bedtime, Victoza 1.2 mg (of 18 mg/3mL) Subcutaneous daily Allergies: Shellfish Review of Systems: Review of Systems is not available for this patient. Vital Signs: Performed on Nov 23, 2021 13:22 Height - 73.00 in Weight - 238.4 lbs (HIGH) BSA - 2.32 sq.m BMI - 31.45 (HIGH) Temperature - 99.4 F (HIGH) Pulse - 98 /min Respiration - 18 /min BP - 133/80 mm(hg) O2 Sat - 96 % Pain - 2 Fatigue - 3 Performance Status: 0 - Fully active, able to carry on all predisease activities without restrictions. (ECOG) Physical Examination: ENMT - No mouth sores, no thrush, no jaundice, No cervical or axillary lymphadenopathy, Respiratory - Lungs are clear to auscultation, Cardiovascular - Regular rate and rhythm of heart, Abdomen - Soft, bowel sounds present. Lab/Imaging: Most recent lab results are not available for this patient. 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 Mild to moderate hepatosplenomegaly Micronodular tree-in-bud infiltrates more prominent in the right lower lobe, additional micronodular infiltrate in the right hilum and left lobe along with fissure and pleural thickening, radiological impression infectious or inflammatory etiology Diffuse bladder wall thickening, ?chronic cystitis, prostate does not appear enlarged. History of diabetes, diabetic neuropathy Right shoulder pain due to arthritis Plan: Discussed with patient regarding his labs white blood count 11.8 compared to 7.8 previously, hemoglobin 14.4 hematocrit 42.9 platelets 165,000 CMP within normal limits as well as LDH except glucose 216 Clinically, patient is doing well with no new signs symptoms history of recurrence of disease, no B symptoms, no peripheral lymphadenopathy, no organomegaly, his follow-up lab work-up shows isolated, mild leukocytosis, with neutrophilia etiology could be due to bilateral foot injuries, now being treated at wound care clinic, we will monitor him and return to clinic in 1 month with CBC, if there is no resolution of leukocytosis or worsening, will consider whole blood flow cytometry to rule out underlying myelo myelo/lymphoproliferative disorder Signed By: Espinoza Clark M.D. <<Signature on File>>
== END 2021-11-23 11:41 | disposition home or self-care (01) ==
LOC: ONCMED 11:45
PROVIDERS: PCP Nurse Practitioner Family; Visit Provider Internal Medicine Hematology & Oncology
DX: R59.1 Generalized enlarged lymph nodes (principal); R91.8 Other nonspecific abnormal finding of lung field; M19.90 Unspecified osteoarthritis, unspecified site
CPT/HCPCS: 36415; 80053; 83615; 85025; 99214

== ENCOUNTER 2021-11-29 08:10 | Outpatient (CLI) | payer MEDICAID, SELFPAY | END 2021-11-29 08:11 | disposition home or self-care (01) | LOC: WOUND 08:11 | PROVIDERS: PCP Nurse Practitioner Family; Visit Provider Thoracic Surgery (Cardiothoracic Vascular Surgery) | DX: I96 Gangrene, not elsewhere classified (principal); E11.621 Type 2 diabetes mellitus with foot ulcer; L97.521 Non-pressure chronic ulcer of other part of left foot limited to breakdown of skin; L97.511 Non-pressure chronic ulcer of other part of right foot limited to breakdown of skin; Z87.891 Personal history of nicotine dependence | CPT/HCPCS: 97597; A6021 ==

== ENCOUNTER 2021-12-06 14:05 | Outpatient (CLI) | payer MEDICAID, SELFPAY | END 2021-12-06 14:06 | disposition home or self-care (01) | LOC: WOUND 14:05 | PROVIDERS: PCP Nurse Practitioner Family; Visit Provider Thoracic Surgery (Cardiothoracic Vascular Surgery) | DX: I96 Gangrene, not elsewhere classified (principal); E11.621 Type 2 diabetes mellitus with foot ulcer; L97.522 Non-pressure chronic ulcer of other part of left foot with fat layer exposed; T25.321A Burn of third degree of right foot, initial encounter; X08.8XXA Exposure to other specified smoke, fire and flames, initial encounter; Z87.891 Personal history of nicotine dependence | CPT/HCPCS: 11042; 97597 ==

== ENCOUNTER 2021-12-09 16:27 | Outpatient (CLI) | payer MEDICAID, SELFPAY | END 2021-12-09 16:28 | disposition home or self-care (01) | LOC: SPT 16:28 | PROVIDERS: PCP Nurse Practitioner Family; Visit Provider Nurse Practitioner Family | DX: Z46.89 Encounter for fitting and adjustment of other specified devices (principal); R26.89 Other abnormalities of gait and mobility | CPT/HCPCS: 97760 ==

== ENCOUNTER 2021-12-13 11:47 | Outpatient (CLI) | payer MEDICAID, SELFPAY ==
--- NOTE | 2021-12-13 11:57 | XR_ITS ---
WS: [id number] Exam: XR foot RT min 3V* [id number] Date/Time of Exam: 12/13/2021 12:00 PM Reason For Exam: TYPE II DM W/FOOT ULCER No fracture or dislocation. No bone destruction. Soft tissue swelling of the distal second third and fourth toes. No radiopaque soft tissue foreign bodies. Heel spurs are noted. XR/XR foot RT min 3V* [id number] IMPRESSION: 1. No acute fracture or bone destruction noted. 2. Soft tissue swelling of the second through the fourth toes.
== END 2021-12-13 11:48 | disposition home or self-care (01) ==
LOC: RAD 11:51
PROVIDERS: PCP Nurse Practitioner Family; Visit Provider Thoracic Surgery (Cardiothoracic Vascular Surgery)
DX: E11.621 Type 2 diabetes mellitus with foot ulcer (principal); M79.89 Other specified soft tissue disorders
CPT/HCPCS: 73630

== ENCOUNTER 2021-12-13 15:22 | Outpatient (CLI) | payer MEDICAID, SELFPAY | END 2021-12-13 15:23 | disposition home or self-care (01) | LOC: WOUND 15:23 | PROVIDERS: PCP Nurse Practitioner Family; Visit Provider Nurse Practitioner Family | DX: I96 Gangrene, not elsewhere classified (principal); E11.621 Type 2 diabetes mellitus with foot ulcer; L97.521 Non-pressure chronic ulcer of other part of left foot limited to breakdown of skin; T25.321A Burn of third degree of right foot, initial encounter; X08.8XXA Exposure to other specified smoke, fire and flames, initial encounter; Z87.891 Personal history of nicotine dependence | CPT/HCPCS: 11042 ==

== ENCOUNTER 2021-12-20 09:52 | Outpatient (CLI) | payer MEDICAID, SELFPAY | END 2021-12-20 09:53 | disposition home or self-care (01) | LOC: WOUND 09:53 | PROVIDERS: PCP Nurse Practitioner Family; Visit Provider Thoracic Surgery (Cardiothoracic Vascular Surgery) | DX: I96 Gangrene, not elsewhere classified (principal); E11.621 Type 2 diabetes mellitus with foot ulcer; L97.521 Non-pressure chronic ulcer of other part of left foot limited to breakdown of skin; T25.321A Burn of third degree of right foot, initial encounter; X08.8XXA Exposure to other specified smoke, fire and flames, initial encounter; Z87.891 Personal history of nicotine dependence | CPT/HCPCS: 97597; A6250 ==

== ENCOUNTER 2021-12-20 13:00 | Outpatient (CLI) | payer MEDICAID, SELFPAY ==
[2021-12-20 13:43] LABS: Basophils % 0.5 %; Eosinophils # 0.8 10^3/uL (0.0-0.8); Eosinophils % 9.1 %; Hematocrit 42.8 % (42.0-52.0); Hemoglobin 14.4 g/dL (11.7-16.6); Lymphocytes # 1.6 10^3/uL (0.8-4.8); Lymphocytes % 18.9 %; Mean Corpuscular HGB Conc 33.6 g/dL (30.0-36.0); Mean Corpuscular Hemoglobin 31.1 pg (28.0-34.0); Mean Corpuscular Volume 92.4 fl (80-94); Mean Platelet Volume 11.1 fL (7.4-10.4); Monocytes # 0.7 10^3/uL (0.2-0.9); Neutrophils % 63.3 %; Nucleated Red Blood Cells % 0 %; Platelet Count 157 10^3/cmm (130-400); Red Blood Count 4.63 10^6/uL (4.1-5.3); Red Cell Distribution Width 12.6 % (12.1-15.1); White Blood Count 8.4 10^3/uL (4.0-10.0)
--- NOTE | 2021-12-20 16:42 | ONC FU_ITS ---
Dr. Clark follow up note Patient: Jose Juan Collins Unit #: [id number]: 1970 Dicatated By: Espinoza Clark M.D.Date of Visit:Dec 20, 2021 Onc Med Follow-up/Prog Note History of Present Illness: Mr. Jose Juan Collins, is a 51-year-old gentleman with a history of right shoulder pain and discomfort due to arthritis noticed a small lymph node in his left neck about a month ago and mentioned to him PMD who ordered ultrasound left neck which was done on December 10, 2020 and confirmed 1.7 x 1.6 x 0.7 cm enlarged abnormal hypoechoic lymph node and on December 24, 2020 he underwent biopsy and came back as abnormal lymphoid tissue with focal necrosis and associated fibroadipose tissue flow cytometry showed rare events e.g. 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 Patient denies any history of night sweats, weight loss, recurrent fevers, denies any history of sore throat or sinusitis, denies any history of chronic bronchitis, denies any history of abdominal fullness or palpable lymph node anywhere else patient denies any history of tick bite or overseas travel. Patient denies smoking but is a former smoker and take alcohol occasionally. History of diabetes and diabetic neuropathy, Involving lower extremities, status post left transmetatarsal amputation CT scan of the neck chest abdomen pelvis done on February 12, 2021 showed no cervical lymphadenopathy identified, moderate changes of degenerative spondylosis C5 -C7 CT scan of chest abdomen pelvis done on February 09, 2021 showed a few prominent inguinal lymph nodes measuring approximately 11 mm. No significant lymphadenopathy noticed in the chest abdomen pelvis, no axillary lymphadenopathy. Micronodular tree-in-bud infiltrates more prominent right lower lobe. Additional micronodular infiltrate in the right hilum and left lower lobe along the fissure with pleural thickening. ( Patient said he is allergic to hay and mold and he is in beef cattle business) There is evidence of mild hepatosplenomegaly liver 19 cm, spleen 17.6 cm. (Patient has history of morbid obesity, now Trying to lose weight), Repeat abdominal sonogram done on May 20, 2021 shows liver and normal size and echogenicity, spleen is also top normal size otherwise negative, incidental finding of cholelithiasis without cholecystitis and a 4 x 4 millimeter hyperplastic gallbladder polyp Came for follow-up, denies any specific complaints, no fever chills, no nausea or vomiting, no diarrhea constipation, no night sweats, no weight loss, no recurrent infection, no peripheral lymphadenopathy, no abdominal fullness, no nosebleed or gum bleed, no melena or hematochezia, left foot is healing well Medications: Flonase (50 mcg/act) Suspension Nasal Take as Directed, Multivitamin Men Tablet Oral daily, Requip 1 Tablet Oral at bedtime, Victoza 1.2 mg (of 18 mg/3mL) Subcutaneous daily Allergies: Shellfish Review of Systems: Review of Systems is not available for this patient. Vital Signs: Performed on Dec 20, 2021 14:52 Height - 73.00 in Weight - 242.0 lbs (HIGH) BSA - 2.33 sq.m BMI - 31.93 (HIGH) Temperature - 98.8 F Pulse - 99 /min Respiration - 16 /min BP - 119/72 mm(hg) O2 Sat - 97 % Pain - 0 Fatigue - 3 Performance Status: 0 - Fully active, able to carry on all predisease activities without restrictions. (ECOG) Physical Examination: ENMT - No mouth sores, no thrush, no jaundice, no cervical lymphadenopathy, no supraclavicular lymphadenopathy but fullness in left supraclavicular area, Respiratory - Lungs are clear to auscultation, Cardiovascular - Regular rate and rhythm of heart, Abdomen - Soft, bowel sounds present. Lab/Imaging: Most recent lab results are not available for this patient. 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 Mild to moderate hepatosplenomegaly Micronodular tree-in-bud infiltrates more prominent in the right lower lobe, additional micronodular infiltrate in the right hilum and left lobe along with fissure and pleural thickening, radiological impression infectious or inflammatory etiology Diffuse bladder wall thickening, ?chronic cystitis, prostate does not appear enlarged. History of diabetes, diabetic neuropathy Right shoulder pain due to arthritis Plan: Discussed with patient regarding his labs white blood count 8.4 compared to 11.8 on November 23, 2021 hemoglobin 14.4 hematocrit 42.8 platelets 157,000 Clinically, patient doing well with no new signs symptom, no B symptoms, his follow-up lab work-up shows resolution of mild leukocytosis, hemoglobin and platelets in normal range. At this point, will continue to monitor he will return to clinic in 3 months with CBC, and CT scan of neck including bilateral supraclavicular area with special attention to left supraclavicular, as patient has history of left supraclavicular lymph node biopsy done. Patient also has history of ?hepatosplenomegaly, will also consider abdominal sonogram prior to his next visit in 3 months with CBC. Signed By: Espinoza Clark M.D. <<Signature on File>>
== END 2021-12-20 13:01 | disposition home or self-care (01) ==
LOC: ONCMED 13:04
PROVIDERS: PCP Nurse Practitioner Family; Visit Provider Internal Medicine Hematology & Oncology
DX: R59.1 Generalized enlarged lymph nodes (principal); E11.40 Type 2 diabetes mellitus with diabetic neuropathy, unspecified; M19.011 Primary osteoarthritis, right shoulder
CPT/HCPCS: 36415; 85025; 99214

== ENCOUNTER 2021-12-27 10:09 | Outpatient (CLI) | payer MEDICAID, SELFPAY | END 2021-12-27 10:10 | disposition home or self-care (01) | LOC: WOUND 10:09 | PROVIDERS: PCP Nurse Practitioner Family; Visit Provider Thoracic Surgery (Cardiothoracic Vascular Surgery) | DX: E11.621 Type 2 diabetes mellitus with foot ulcer (principal); L97.521 Non-pressure chronic ulcer of other part of left foot limited to breakdown of skin; Z87.891 Personal history of nicotine dependence | CPT/HCPCS: 97597; A6250 ==

== ENCOUNTER 2022-01-03 08:00 | Outpatient (CLI) | payer MEDICAID, SELFPAY | END 2022-01-03 08:01 | disposition home or self-care (01) | LOC: WOUND 08:01 | PROVIDERS: PCP Nurse Practitioner Family; Visit Provider Thoracic Surgery (Cardiothoracic Vascular Surgery) | DX: E11.621 Type 2 diabetes mellitus with foot ulcer (principal); L97.521 Non-pressure chronic ulcer of other part of left foot limited to breakdown of skin; Z87.891 Personal history of nicotine dependence | CPT/HCPCS: 97597 ==

== ENCOUNTER 2022-01-10 08:03 | Outpatient (CLI) | payer MEDICAID, SELFPAY | END 2022-01-10 08:04 | disposition home or self-care (01) | LOC: WOUND 08:03 | PROVIDERS: PCP Nurse Practitioner Family; Visit Provider Thoracic Surgery (Cardiothoracic Vascular Surgery) | DX: E11.621 Type 2 diabetes mellitus with foot ulcer (principal); L97.521 Non-pressure chronic ulcer of other part of left foot limited to breakdown of skin | CPT/HCPCS: 97597 ==

== ENCOUNTER 2022-01-17 07:49 | Outpatient (CLI) | payer MEDICAID, SELFPAY | END 2022-01-17 07:50 | disposition home or self-care (01) | LOC: WOUND 07:50 | PROVIDERS: PCP Nurse Practitioner Family; Visit Provider Thoracic Surgery (Cardiothoracic Vascular Surgery) | DX: E11.621 Type 2 diabetes mellitus with foot ulcer (principal); L97.521 Non-pressure chronic ulcer of other part of left foot limited to breakdown of skin; Z87.891 Personal history of nicotine dependence | CPT/HCPCS: 97597 ==

== ENCOUNTER 2022-01-24 07:58 | Outpatient (CLI) | payer MEDICAID, SELFPAY | END 2022-01-24 07:59 | disposition home or self-care (01) | LOC: WOUND 08:00 | PROVIDERS: PCP Nurse Practitioner Family; Visit Provider Thoracic Surgery (Cardiothoracic Vascular Surgery) | DX: E11.621 Type 2 diabetes mellitus with foot ulcer (principal); L97.521 Non-pressure chronic ulcer of other part of left foot limited to breakdown of skin; I96 Gangrene, not elsewhere classified; Z87.891 Personal history of nicotine dependence | CPT/HCPCS: 97597; A6250 ==

== ENCOUNTER 2022-01-31 08:16 | Outpatient (CLI) | payer MEDICAID, SELFPAY | END 2022-01-31 08:17 | disposition home or self-care (01) | LOC: WOUND 08:18 | PROVIDERS: PCP Nurse Practitioner Family; Visit Provider Thoracic Surgery (Cardiothoracic Vascular Surgery) | DX: E11.621 Type 2 diabetes mellitus with foot ulcer (principal); L97.521 Non-pressure chronic ulcer of other part of left foot limited to breakdown of skin; Z87.891 Personal history of nicotine dependence | CPT/HCPCS: 97597 ==

== ENCOUNTER 2022-02-07 07:54 | Outpatient (CLI) | payer MEDICAID, SELFPAY | END 2022-02-07 07:55 | disposition home or self-care (01) | LOC: WOUND 07:55 | PROVIDERS: PCP Nurse Practitioner Family; Visit Provider Thoracic Surgery (Cardiothoracic Vascular Surgery) | DX: E11.621 Type 2 diabetes mellitus with foot ulcer (principal); L97.521 Non-pressure chronic ulcer of other part of left foot limited to breakdown of skin; Z87.891 Personal history of nicotine dependence | CPT/HCPCS: 97597; A6250 ==

== ENCOUNTER 2022-02-14 07:49 | Outpatient (CLI) | payer MEDICAID, SELFPAY | END 2022-02-14 07:50 | disposition home or self-care (01) | LOC: WOUND 07:50 | PROVIDERS: PCP Nurse Practitioner Family; Visit Provider Thoracic Surgery (Cardiothoracic Vascular Surgery) | DX: Z09 Encounter for follow-up examination after completed treatment for conditions other than malignant neoplasm (principal); E11.621 Type 2 diabetes mellitus with foot ulcer; Z87.891 Personal history of nicotine dependence; L97.521 Non-pressure chronic ulcer of other part of left foot limited to breakdown of skin | CPT/HCPCS: 99212; A6250 ==

== ENCOUNTER → 2022-02-21 07:53 | Outpatient (BNVA) | payer MEDICAID, SELFPAY | PROVIDERS: PCP Nurse Practitioner Family; Visit Provider Nurse Practitioner Family | DX: Z09 Encounter for follow-up examination after completed treatment for conditions other than malignant neoplasm (principal); Z87.891 Personal history of nicotine dependence | CPT/HCPCS: 99212; A6250 ==

== ENCOUNTER 2022-03-15 06:06 | Outpatient (CLI) | payer MEDICAID, SELFPAY ==
--- NOTE | 2022-03-15 | US_ITS ---
WS: [id number] Complete ABDOMINAL ULTRASOUND HISTORY: Abdominal pain. COMPARISON: 05/20/2021 Liver: 14.0 cm in length. Liver is normal size and echogenicity with no mass or intrahepatic dilatati on. Portal Vein: Normal hepatopetal flow with monophasic waveform. Gallbladder: Cholelithiasis. No evidence for acute cholecystitis. Again noted is a hyperplastic polyp measuring 4 mm. Gallbladder wall thickness: 0.3 cm. Pancreas: Obscured by bowel gas. CBD: 0.4 cm. Right kidney: 11.3 cm x 5.3 cm x 4.9 cm. No mass, cortical thickening or hydronephrosis. Left kidney: 13.1 cm x 6.2 cm x 6.3 cm. No mass, cortical thickening or hydronephrosis. Spleen: Spleen is top normal size at 13.1 cm in length. Similar to the prior study. Abdominal aorta and IVC are within normal limits. No ascites. US/US abdomen complete* [id number] IMPRESSION: 1. Cholelithiasis and stable gallbladder polyp. No change since 05/20/2021. No evidence for acute cholecystitis at this time or duct dilatation. 2. Spleen remains top normal size at 13.1 cm in length.
--- NOTE | 2022-03-15 07:11 | CT_ITS ---
WS: [id number] CT NECK WITH CONTRAST HISTORY: LOCALIZED ENLARGED LYMPH NODES TECHNIQUE: Contiguous 5 mm axial images are performed through the neck with intravenous contrast. Sag ittal and coronal reformats are also submitted. All CT scans at [facility] use at least one o f these dose optimization techniques: automated exposure control; mA and/or kV adjustment per patient size (includes targeted exams where dose is matched to clinical indication); or iterative reconstruc tion. CONTRAST: CONTRAST: Omnipaque 350; 95 mL IV. DLP: 322.85 mGy.cm COMPARISON: 02/12/2021 Nasopharynx, oropharynx, hypopharynx and larynx are unremarkable. No soft tissue masses or abnormal e nhancement. Torus tubarius and fossa of Rosenmuller and parapharyngeal fat are normal. No significant lymphadenopathy is identified. There are small bilateral cervical chain lymph nodes at level 2. The largest lymph node measures 7 mm. Focal calcification along the thyroid isthmus. These calcifications were seen on the prior study from 02/09/2021. Parotid glands and submandibular glands are normal. Advanced degenerative changes in the disks at C5-6 and C6-7. Visualized portions of the skull base demonstrate no abnormalities. Orbits and globes are within norm al limits. No soft tissue masses. Moderate mucoperiosteal thickening throughout the ethmoid air cells. Similar to the prior study. Focal area of atelectasis and nodularity in the RIGHT upper lobe along the superior fissure. CT/CT neck w con* [id number] IMPRESSION: 1. No neck mass or lymphadenopathy identified. 2. Linear area of atelectasis and nodularity along the RIGHT superior major fi ssure. There are associated small nodules which are probably postinflammatory i n a tree-in-bud distribution.
[2022-03-15] MEDS: iohexol 350 mg/mL 100 mL Btl IV (10:33)
== END 2022-03-15 06:07 | disposition home or self-care (01) ==
LOC: RAD 06:07
PROVIDERS: PCP Nurse Practitioner Family; Visit Provider Internal Medicine Hematology & Oncology
DX: R59.0 Localized enlarged lymph nodes (principal); R10.9 Unspecified abdominal pain
CPT/HCPCS: 70491; 76700

== ENCOUNTER 2022-03-15 10:14 | Outpatient (CLI) | payer MEDICAID, SELFPAY ==
--- NOTE | 2022-03-15 10:36 | XR_ITS ---
WS: [id number] Exam: XR ribs LT 2V* [id number] Date/Time of Exam: 03/15/2022 10:38 AM Reason For Exam: CHEST WALL PAIN No acute left rib fracture noted. The left lung is fully inflated and clear. XR/XR ribs LT 2V* [id number] IMPRESSION: 1. No acute left rib fracture or pneumothorax.
== END 2022-03-15 10:15 | disposition home or self-care (01) ==
LOC: RAD 10:15
PROVIDERS: PCP Nurse Practitioner Family; Visit Provider Nurse Practitioner Family
DX: R07.89 Other chest pain (principal)
CPT/HCPCS: 71100

== ENCOUNTER 2022-03-22 07:50 | Outpatient (CLI) | payer MEDICAID, SELFPAY ==
[2022-03-22 08:37] LABS: Basophils # 0.1 10^3/uL (0.0-0.1); Basophils % 0.4 %; Eosinophils # 0.8 10^3/uL (0.0-0.8); Eosinophils % 6.1 %; Hematocrit 44.3 % (42.0-52.0); Hemoglobin 14.7 g/dL (11.7-16.6); Lymphocytes % 15.3 %; Mean Corpuscular HGB Conc 33.2 g/dL (30.0-36.0); Mean Corpuscular Hemoglobin 30.3 pg (28.0-34.0); Mean Corpuscular Volume 91.3 fl (80-94); Mean Platelet Volume 10.7 fL (7.4-10.4); Monocytes % 7.7 %; Nucleated Red Blood Cells % 0 %; Platelet Count 190 10^3/cmm (130-400); Red Blood Count 4.85 10^6/uL (4.1-5.3); Red Cell Distribution Width 12.9 % (12.1-15.1); White Blood Count 12.7 10^3/uL (4.0-10.0)
--- NOTE | 2022-03-23 09:50 | ONC FU_ITS ---
Dr. Clark follow up note Patient: Jose Juan Collins Unit #: [id number]: [id number] Dicatated By: Espinoza Clark M.D.Date of Visit:Mar 22, 2022 Onc Med Follow-up/Prog Note History of Present Illness: Mr. Jose Juan Collins, is a 51-year-old gentleman with a history of right shoulder pain and discomfort due to arthritis noticed a small lymph node in his left neck about a month ago and mentioned to him PMD who ordered ultrasound left neck which was done on December 10, 2020 and confirmed 1.7 x 1.6 x 0.7 cm enlarged abnormal hypoechoic lymph node and on December 24, 2020 he underwent biopsy and came back as abnormal lymphoid tissue with focal necrosis and associated fibroadipose tissue flow cytometry showed rare events e.g. 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 Patient denies any history of night sweats, weight loss, recurrent fevers, denies any history of sore throat or sinusitis, denies any history of chronic bronchitis, denies any history of abdominal fullness or palpable lymph node anywhere else patient denies any history of tick bite or overseas travel. Patient denies smoking but is a former smoker and take alcohol occasionally. History of diabetes and diabetic neuropathy, Involving lower extremities, status post left transmetatarsal amputation CT scan of the neck chest abdomen pelvis done on February 12, 2021 showed no cervical lymphadenopathy identified, moderate changes of degenerative spondylosis C5 -C7 CT scan of chest abdomen pelvis done on February 09, 2021 showed a few prominent inguinal lymph nodes measuring approximately 11 mm. No significant lymphadenopathy noticed in the chest abdomen pelvis, no axillary lymphadenopathy. Micronodular tree-in-bud infiltrates more prominent right lower lobe. Additional micronodular infiltrate in the right hilum and left lower lobe along the fissure with pleural thickening. ( Patient said he is allergic to hay and mold and he is in beef cattle business) There is evidence of mild hepatosplenomegaly liver 19 cm, spleen 17.6 cm. (Patient has history of morbid obesity, now Trying to lose weight), Repeat abdominal sonogram done on May 20, 2021 shows liver and normal size and echogenicity, spleen is also top normal size otherwise negative, incidental finding of cholelithiasis without cholecystitis and a 4 x 4 millimeter hyperplastic gallbladder polyp Follow-up CT scan of neck done on March 15, 2022 showed no neck mass or lymphadenopathy identified, linear area of atelectasis or nodularity along the right superior major fissure, associated with small nodules are probably inflammatory abdominal sonogram done on March 15, 2022 showed liver 14 cm, normal size and echogenicity, spleen remains normal at 13.1 cm. Also seen cholelithiasis with stable gallbladder polyp Came for follow-up, denies any specific complaints, no fever chills, no nausea or vomiting, no diarrhea or constipation but off-and-on epigastric/right upper abdominal discomfort especially after meals. No dysuria or hematuria, no abdominal fullness, No night sweats or recurrent fever Medications: Flonase (50 mcg/act) Suspension Nasal Take as Directed, Multivitamin Men Tablet Oral daily, Requip 1 Tablet Oral at bedtime, Trulicity (0.75 mg/0.5mL) Subcutaneous Take as Directed Allergies: Shellfish Review of Systems: Review of Systems is not available for this patient. Vital Signs: Performed on Mar 22, 2022 10:22 Height - 73.00 in Weight - 252.6 lbs (HIGH) BSA - 2.38 sq.m BMI - 33.33 (HIGH) Temperature - 99.0 F (HIGH) Pulse - 85 /min Respiration - 18 /min BP - 137/83 mm(hg) O2 Sat - 97 % Pain - 2 Fatigue - 6 Performance Status: 0 - Fully active, able to carry on all predisease activities without restrictions. (ECOG) Physical Examination: ENMT - No mouth sores, no thrush, no jaundice, Respiratory - Lungs are clear to auscultation, Cardiovascular - Regular rate and rhythm of heart, Abdomen - Soft, bowel sounds present, Extremities - No visible edema. Lab/Imaging: Most recent lab results are not available for this patient. 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 Mild to moderate hepatosplenomegaly Micronodular tree-in-bud infiltrates more prominent in the right lower lobe, additional micronodular infiltrate in the right hilum and left lobe along with fissure and pleural thickening, radiological impression infectious or inflammatory etiology Diffuse bladder wall thickening, ?chronic cystitis, prostate does not appear enlarged. History of diabetes, diabetic neuropathy Right shoulder pain due to arthritis Plan: Discussed with patient regarding his labs white blood count 12.7 compared to 8.4 previously hemoglobin 14.7 hematocrit 44.3 platelets 190,000 ANC 10,700 Clinically, patient doing well with no new signs symptom, no B symptoms, his follow-up CT scan of neck shows no cervical lymphadenopathy and abdominal sonogram shows no hepatosplenomegaly but lab work-up shows fluctuating isolated leukocytosis etiology unclear could be due to underlying subacute inflammation especially in the gallbladder as patient is also complaining of abdominal discomfort especially with meals. If there is a worsening of symptoms or persistent leukocytosis, we may consider surgical evaluation for possible cholecystectomy. Otherwise monitor Return to clinic in 1 month with CBC, if there is a worsening of leukocytosis, may consider whole blood flow cytometry. Signed By: Espinoza Clark M.D. <<Signature on File>>
== END 2022-03-22 07:51 | disposition home or self-care (01) ==
PROVIDERS: PCP Nurse Practitioner Family; Visit Provider Internal Medicine Hematology & Oncology
DX: D47.9 Neoplasm of uncertain behavior of lymphoid, hematopoietic and related tissue, unspecified (principal); R16.2 Hepatomegaly with splenomegaly, not elsewhere classified; J98.4 Other disorders of lung; Z87.891 Personal history of nicotine dependence; N32.89 Other specified disorders of bladder; E11.40 Type 2 diabetes mellitus with diabetic neuropathy, unspecified; M19.011 Primary osteoarthritis, right shoulder
CPT/HCPCS: 36415; 85025; 99214

== ENCOUNTER → 2022-04-05 07:57 | Outpatient (BNVA) | payer MEDICAID, SELFPAY | PROVIDERS: PCP Nurse Practitioner Family; Visit Provider Podiatrist Foot & Ankle Surgery | DX: E11.8 Type 2 diabetes mellitus with unspecified complications (principal); Z89.432 Acquired absence of left foot; E11.42 Type 2 diabetes mellitus with diabetic polyneuropathy; L84 Corns and callosities; Z87.891 Personal history of nicotine dependence | CPT/HCPCS: 11055; 99213; 99214 ==

== ENCOUNTER 2022-05-06 07:39 | Oncology outpatient (recurring) (ONCR) | payer MEDICAID, SELFPAY ==
[2022-05-06 08:25] LABS: Basophils # 0.1 10^3/uL (0.0-0.1); Basophils % 0.8 %; Eosinophils # 0.6 10^3/uL (0.0-0.8); Eosinophils % 7.2 %; Hematocrit 42.9 % (42.0-52.0); Hemoglobin 14.6 g/dL (11.7-16.6); Lymphocytes # 1.8 10^3/uL (0.8-4.8); Lymphocytes % 23.5 %; Mean Corpuscular Hemoglobin 30.6 pg (28.0-34.0); Mean Corpuscular Volume 89.9 fl (80-94); Mean Platelet Volume 10.7 fL (7.4-10.4); Monocytes # 0.7 10^3/uL (0.2-0.9); Monocytes % 8.7 %; Neutrophils # 4.63 10^3/uL (1.8-7.7); Neutrophils % 59.3 %; Nucleated Red Blood Cells % 0 %; Platelet Count 149 10^3/cmm (130-400); Red Blood Count 4.77 10^6/uL (4.1-5.3); White Blood Count 7.8 10^3/uL (4.0-10.0)
== END 2022-05-26 23:59 | disposition home or self-care (01) ==
LOC: ONCMED 07:40
PROVIDERS: Internal Medicine Hematology & Oncology; PCP Nurse Practitioner Family; Visit Provider Nurse Practitioner Family
DX: R59.0 Localized enlarged lymph nodes (principal); E11.40 Type 2 diabetes mellitus with diabetic neuropathy, unspecified; M19.011 Primary osteoarthritis, right shoulder; D72.829 Elevated white blood cell count, unspecified; R21 Rash and other nonspecific skin eruption
CPT/HCPCS: 85025; 99214

== ENCOUNTER → 2022-05-12 09:20 | Outpatient (BNVA) | payer MEDICAID, SELFPAY | PROVIDERS: PCP Nurse Practitioner Family; Visit Provider Podiatrist Foot & Ankle Surgery | DX: E11.621 Type 2 diabetes mellitus with foot ulcer (principal); Z89.422 Acquired absence of other left toe(s); L97.529 Non-pressure chronic ulcer of other part of left foot with unspecified severity; E11.42 Type 2 diabetes mellitus with diabetic polyneuropathy; L84 Corns and callosities | CPT/HCPCS: 99214 ==

== ENCOUNTER → 2022-06-22 13:52 | Outpatient (BNVA) | payer MEDICAID, SELFPAY | PROVIDERS: PCP Nurse Practitioner Family; Visit Provider Podiatrist Foot & Ankle Surgery | DX: Z79.4 Long term (current) use of insulin (principal); Z89.432 Acquired absence of left foot; E11.42 Type 2 diabetes mellitus with diabetic polyneuropathy; E11.8 Type 2 diabetes mellitus with unspecified complications | CPT/HCPCS: 99213; 99214 ==

== ENCOUNTER 2022-07-06 12:27 | Oncology outpatient (recurring) (ONCR) | payer MEDICAID, SELFPAY ==
[2022-07-06 13:01] LABS: Basophils # 0.1 10^3/uL (0.0-0.1); Basophils % 0.6 %; Eosinophils # 0.9 10^3/uL (0.0-0.8); Eosinophils % 9.6 %; Lymphocytes # 2.3 10^3/uL (0.8-4.8); Lymphocytes % 26.2 %; Mean Corpuscular HGB Conc 33.3 g/dL (30.0-36.0); Mean Corpuscular Hemoglobin 30.3 pg (28.0-34.0); Mean Corpuscular Volume 90.9 fl (80-94); Mean Platelet Volume 10.8 fL (7.4-10.4); Monocytes # 0.7 10^3/uL (0.2-0.9); Monocytes % 8.2 %; Neutrophils # 4.92 10^3/uL (1.8-7.7); Neutrophils % 55.2 %; Nucleated Red Blood Cells % 0 %; Platelet Count 190 10^3/cmm (130-400); Red Blood Count 4.95 10^6/uL (4.1-5.3); Red Cell Distribution Width 12.6 % (12.1-15.1); White Blood Count 8.9 10^3/uL (4.0-10.0)
== END 2022-07-27 23:59 | disposition home or self-care (01) ==
PROVIDERS: Nurse Practitioner; PCP Nurse Practitioner Family; Visit Provider Internal Medicine Hematology & Oncology
DX: R59.0 Localized enlarged lymph nodes (principal); E11.40 Type 2 diabetes mellitus with diabetic neuropathy, unspecified; M19.011 Primary osteoarthritis, right shoulder; R21 Rash and other nonspecific skin eruption
CPT/HCPCS: 85025; 99214

== ENCOUNTER → 2022-07-21 13:24 | Outpatient (BNVA) | payer MEDICAID, SELFPAY | PROVIDERS: PCP Nurse Practitioner Family; Visit Provider Surgery | DX: Z86.010 Personal history of colon polyps (principal); Z80.0 Family history of malignant neoplasm of digestive organs | CPT/HCPCS: 99203 ==

== ENCOUNTER → 2022-08-31 12:59 | Outpatient (BNVA) | payer MEDICAID, SELFPAY | PROVIDERS: PCP Nurse Practitioner Family; Visit Provider Podiatrist Foot & Ankle Surgery | DX: L84 Corns and callosities (principal); Z89.432 Acquired absence of left foot; E11.42 Type 2 diabetes mellitus with diabetic polyneuropathy; E11.8 Type 2 diabetes mellitus with unspecified complications; Z79.84 Long term (current) use of oral hypoglycemic drugs | CPT/HCPCS: 99214 ==

== ENCOUNTER 2022-09-09 06:18 | Day surgery (SDC) | payer MEDICAID, SELFPAY ==
[2022-09-07 13:49] VITALS: BMI 31.8
--- NOTE | 2022-09-09 06:26 | W.PM.OPSFHP ---
Same Day Surgery H&P Indication for Procedure/HPI DATE OF PROCEDURE: September 09, 2022 CHIEF COMPLAINT/INDICATIONFOR SURGICAL PROCEDURE: History of colon polyps PREOP DIAGNOSIS: History of colon polyp PLANNED PROCEDURE: Operation Date: 09/09/22 07:45 Proposed Procedures p Colonoscopy 44194,Z12.11(Not Applicable) - Jd Joya MD 07/21/2022 This is a pleasant 52 years old gentleman with history of colon polyps and his last colonoscopy was done 17 years ago.? Denies bleeding per rectum and he reports his mom had history of colon cancer at age of 67.? Patient is referred to me for surveillance colonoscopy 09/09/2022 Patient comes today for surveillance colonoscopy. ROS All systems have been reviewed negative except as for the above or per problem list. Medications/Allergies* Home Medications Medication Instructions Recorded Confirmed Type acetaminophen 325 mg tablet 650 mg PO QID PRN Pain, Moderate 11/27/19 09/07/22 History (Tylenol) fluticasone propionate 50 1 spray intranasal DAILY 10/13/21 09/07/22 History mcg/actuation nasal spray,suspension (Flonase Allergy Relief) dulaglutide 0.75 mg/0.5 mL 0.75 mg SUBCUT .weekly 05/06/22 09/07/22 History subcutaneous pen injector (Trulicity) metformin 500 mg tablet,extended 500 mg PO DAILY 05/06/22 09/07/22 History release 24hr melatonin 10 mg tablet 20 mg PO DAILY PRN Sleep 07/06/22 09/07/22 History ropinirole 0.5 mg tablet 1 mg PO DAILY 07/06/22 09/07/22 History Allergies/Adverse Reactions Allergy/AdvReac Type Severity Reaction Status Date / Time shellfish derived Allergy Mild Nausea and Verified 08/31/22 13:04 Vomiting Pertinent History/Comorbid Conditions* Medical History (Updated 07/21/22 @ 17:49 by Jd Joya MD) Abscess of leg, left Amputation of right ring finger Diabetes H/O drainage of abscess Peroneal tendonitis Rash 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 Surgical History (Updated 12/22/19 @ 17:57 by Darin Dewitt DPM) Hx of appendectomy Status post transmetatarsal amputation of left foot Family History (Updated 07/06/22 @ 14:01 by Rose Alice, [employer] STAND LOADER) Diabetes Father Grandmother Family/Other Cancer Mother Stage 1 colon cancer Stroke Grandfather Denies family history of CAD (coronary artery disease) Clotting disorder Dementia Hyperlipidemia Psychiatric illness Chronic kidney disease (CKD) Suicide Anesthesia complication Bleeding disorder Family history of premature coronary artery disease Lung disease Hypertension Social History Smoking and tobacco status: former smoker Quit status (tobacco): has quit using tobacco Year quit tobacco: 6 years ago Alcohol intake: current Alcohol intake frequency: holidays/special occasions only Pertinent Exam Findings alert, oriented x 3, regular rate & rhythm and procedure specific exam findings (Abdominal exam nontender nondistended soft) Recommendations Surgery/Procedure today (Colonoscopy with possible biopsy) Coding Level of Care Code Acute [employer] Marker for Hannah Dvae
[2022-09-09 06:40] VITALS: BP 154/92; PULSE 93; RESP 18; TEMP 37.2; O2SAT 95
[2022-09-09] MEDS: sodium chloride 0.9% 1,000 ML 30 ML IV (06:49)
[2022-09-09 06:51] LABS: Glucose Point of Care 118 mg/dL (70-110)
--- NOTE | 2022-09-09 07:54 | ANES.PREANE2 ---
Pre-Anesthetic Assessment Height/Weight: Height 1.91 m Weight 115.666 kg Temp Pulse Resp BP Pulse Ox O2 Del Method 98.9 F 93 18 154/92 95 09/09/22 06:40 09/09/22 06:40 09/09/22 06:40 09/09/22 06:40 09/09/22 06:40 09/09/22 06:40 Preop Diagnosis: History of colon polyps Operation Date: 09/09/22 07:45 Proposed Procedures p Colonoscopy 03068,Z12.11(Not Applicable) - Jd Joya MD Familial anesthetic complications: None Was [place] taken within 24 hours: N/A Was Clonidine taken within 24 hours: N/A Last intake: Intake Last Liquid Date 09/08/22 Last Liquid Time 21:30 Last Solid Date 09/07/22 Last Solid Time 00:00 Social No alcohol and No tobacco former smoker Airway Mallampati: Class II Dentition: other (no teeth) Metabolic Diabetes Mellitus Anesthetic Plan ASA status: 3 Anesthesia: MAC Risk of > 500 ml blood loss (7ml/kg in children): No Medications/Allergies Home Medications Medication Instructions Recorded Confirmed Last Taken Type acetaminophen 325 mg tablet 650 mg PO QID PRN Pain, Moderate 11/27/19 09/09/22 11/25/19 History (Tylenol) 325 Diabetic shoe with toe filler #1 ea 01/15/20 09/09/22 Unknown Rx Toe filler left foot #1 ea 04/22/20 09/09/22 Unknown Rx Over the door jose maria set #1 ea 12/01/20 09/09/22 Unknown Rx fluticasone propionate 50 1 spray intranasal DAILY 10/13/21 09/09/22 Unknown History mcg/actuation nasal spray,suspension (Flonase Allergy Relief) Diabetic shoes #1 ea 04/05/22 09/09/22 Unknown Rx AFO to left #1 ea 04/13/22 09/09/22 Unknown Rx Off loading modification for #1 ea 04/13/22 09/09/22 Unknown Rx patients AFO sub 4th metatarsal head. dulaglutide 0.75 mg/0.5 mL 0.75 mg SUBCUT .weekly 05/06/22 09/09/22 09/04/22 History subcutaneous pen injector (Trulicity) metformin 500 mg tablet,extended 500 mg PO DAILY 05/06/22 09/09/22 09/08/22 History release 24hr melatonin 10 mg tablet 20 mg PO DAILY PRN Sleep 07/06/22 09/09/22 Unknown History ropinirole 0.5 mg tablet 1 mg PO DAILY 07/06/22 09/09/22 09/07/22 History triamcinolone acetonide 0.1 % 1 applic topical BID #80 grams 08/08/22 09/09/22 08/26/22 Rx topical cream Allergies Allergy/AdvReac Type Severity Reaction Status Date / Time shellfish derived Allergy Mild Nausea and Verified 08/31/22 13:04 Vomiting Current Medications Generic Name Dose Route Start Last Admin Trade Name Freq PRN Reason Stop Dose Admin Sodium Chloride 1,000 mls @ 30 mls/hr 09/09/22 06:30 09/09/22 06:49 Sodium Chloride 0.9% IV 30 mls/hr .Q24H RENATO Administration PFSH Anesthesia Medical History Abscess of leg, left Amputation of right ring finger Diabetes H/O drainage of abscess Peroneal tendonitis Rash 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 Surgical History Hx of appendectomy Status post transmetatarsal amputation of left foot Family History Father Diabetes Grandmother Diabetes Family/Other Diabetes Grandfather Stroke Mother Cancer Stage 1 colon cancer Denies family history of CAD (coronary artery disease) Clotting disorder Dementia Hyperlipidemia Psychiatric illness Chronic kidney disease (CKD) Suicide Anesthesia complication Bleeding disorder Family history of premature coronary artery disease Lung disease Hypertension Social History Smoking and tobacco status: former smoker Quit status (tobacco): has quit using tobacco Year quit tobacco: 6 years ago Alcohol intake: current Alcohol intake frequency: holidays/special occasions only Data Anesthesia Cardiac Studies: Echocardiogram Ultrasound 05/05/20 Holter Monitor 06/15/20
[2022-09-09 08:34] VITALS: BP 102/68; PULSE 79; RESP 18; TEMP 36.1; O2SAT 100
[2022-09-09 08:39] VITALS: BP 117/77; PULSE 79; RESP 18; O2SAT 100
[2022-09-09 08:49] VITALS: BP 126/74; PULSE 81; RESP 18; O2SAT 98
--- NOTE | 2022-09-09 13:28 | ANE.PACU2 ---
Inpatient post-anesthesia follow up: Airway intact: Yes Vital signs: Temperature 97.0 F Pulse Rate 81 Respiratory Rate 18 Blood Pressure 126/74 Pulse Oximetry 98 Oxygen Delivery Me thod Room Air Oxygen Flow Rate 3 Fraction of Inspir ed Oxygen Hydration adequate: Yes Nausea and vomiting: No Pain level: 1 Mental status: Baseline
== END 2022-09-09 09:12 | disposition home or self-care (01) ==
PROVIDERS: PCP Nurse Practitioner Family; Visit Provider Surgery
PROC: 0DJD8ZZ Inspection of Lower Intestinal Tract, Via Natural or Artificial Opening Endoscopic (ICD-10-PCS; CPT 45378; principal; 2022-09-09 07:45)
DX: Z12.11 Encounter for screening for malignant neoplasm of colon (principal); Z86.010 Personal history of colon polyps; E11.9 Type 2 diabetes mellitus without complications; Z87.891 Personal history of nicotine dependence; Z79.84 Long term (current) use of oral hypoglycemic drugs
CPT/HCPCS: 36416; 45378; 82962; J2704; J7030

== ENCOUNTER → 2022-09-21 16:07 | Outpatient (BNVA) | payer MEDICAID, SELFPAY | PROVIDERS: PCP Nurse Practitioner Family; Visit Provider Surgery | DX: Z09 Encounter for follow-up examination after completed treatment for conditions other than malignant neoplasm (principal); Z86.010 Personal history of colon polyps | CPT/HCPCS: 99212 ==

== ENCOUNTER → 2022-10-12 13:31 | Outpatient (BNVA) | payer MEDICAID, SELFPAY | PROVIDERS: PCP Nurse Practitioner Family; Visit Provider Podiatrist Foot & Ankle Surgery | DX: L84 Corns and callosities (principal); Z89.432 Acquired absence of left foot; E11.42 Type 2 diabetes mellitus with diabetic polyneuropathy | CPT/HCPCS: 99214 ==

== ENCOUNTER 2022-11-16 05:58 | Day surgery (SDC) | payer MEDICAID, SELFPAY ==
[2022-11-14 13:40] VITALS: BMI 31.8
[2022-11-16 06:29] VITALS: BP 126/84; PULSE 95; RESP 18; TEMP 36.3; O2SAT 96
[2022-11-16] MEDS: sodium chloride 0.9% 1,000 ML 30 ML IV (06:33)
[2022-11-16 06:38] LABS: Glucose Point of Care 122 mg/dL (70-110)
--- NOTE | 2022-11-16 06:38 | P.HP_ITS ---
Same Day Surgery H&P Indication for Procedure/HPI DATE OF PROCEDURE: November 16, 2022 CHIEF COMPLAINT/INDICATIONFOR SURGICAL PROCEDURE: I am here for PREOP DIAGNOSIS: History of colon polyps PLANNED PROCEDURE: Operation Date: 11/16/22 07:30 Proposed Procedures p Colonoscopy 14180,Z86.010(Not Applicable) - Jd Joya MD This is a pleasant 52 years old gentleman comes today for repeat colonoscopy as last time his colon prep was inadequate on 09/10/2022 and my recommendation to repeat colonoscopy in 6 months to 1 year ROS All systems have been reviewed negative except as for the above or per problem list. Medications/Allergies* Home Medications Medication Instructions Recorded Confirmed Type fluticasone propionate 50 1 spray intranasal DAILY 10/13/21 11/16/22 History mcg/actuation nasal spray,suspension (Flonase Allergy Relief) dulaglutide 0.75 mg/0.5 mL 0.75 mg SUBCUT .weekly 05/06/22 11/16/22 History subcutaneous pen injector (Trulicity) metformin 500 mg tablet,extended 500 mg PO DAILY 05/06/22 11/16/22 History release 24hr melatonin 10 mg tablet 20 mg PO DAILY PRN Sleep 07/06/22 11/16/22 History ropinirole 0.5 mg tablet 1 mg PO DAILY 07/06/22 11/16/22 History Allergies/Adverse Reactions Allergy/AdvReac Type Severity Reaction Status Date / Time shellfish derived Allergy Mild Nausea and Verified 11/16/22 06:39 Vomiting Current Medications: Generic Name Dose Route Start Last Admin Trade Name Freq PRN Reason Stop Dose Admin Sodium Chloride 1,000 mls @ 30 mls/hr 11/16/22 06:15 11/16/22 06:33 Sodium Chloride 0.9% IV 11/17/22 06:14 30 mls/hr .Q24H RENATO Administration Pertinent History/Comorbid Conditions* Medical History (Updated 07/21/22 @ 17:49 by Jd Joya MD) Abscess of leg, left Amputation of right ring finger Diabetes H/O drainage of abscess Peroneal tendonitis Rash 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 Surgical History (Updated 12/22/19 @ 17:57 by Darin Dewitt DPM) Hx of appendectomy Status post transmetatarsal amputation of left foot Family History (Updated 07/06/22 @ 14:01 by Rose Jenkins LPN) Diabetes Father Grandmother Family/Other Cancer Mother Stage 1 colon cancer Stroke Grandfather Denies family history of CAD (coronary artery disease) Clotting disorder Dementia Hyperlipidemia Psychiatric illness Chronic kidney disease (CKD) Suicide Anesthesia complication Bleeding disorder Family history of premature coronary artery disease Lung disease Hypertension Social History Smoking and tobacco status: former smoker Quit status (tobacco): has quit using tobacco Year quit tobacco: 6 years ago Alcohol intake: current Alcohol intake frequency: holidays/special occasions only Pertinent Exam Findings alert, regular rate & rhythm and procedure specific exam findings (Abdominal exam nontender nondistended soft) Recommendations Surgery/Procedure today (Colonoscopy with possible biopsy) Coding Level of Care Code Acute Administrative Nursing Supervisor for Hannah Dave
--- NOTE | 2022-11-16 06:44 | ANES.PREANE2 ---
Pre-Anesthetic Assessment Height/Weight: Height 1.91 m Weight 115.666 kg Temp Pulse Resp BP Pulse Ox O2 Del Method 97.3 F L 95 18 126/84 96 11/16/22 06:29 11/16/22 06:29 11/16/22 06:29 11/16/22 06:29 11/16/22 06:29 11/16/22 06:29 Preop Diagnosis: History of colon polyps Operation Date: 11/16/22 07:30 Proposed Procedures p Colonoscopy 45340,Z86.010(Not Applicable) - Jd Joya MD Familial anesthetic complications: none Last intake: Intake Last Liquid Date 11/15/22 Last Liquid Time 22:00 Last Solid Date 11/13/22 Last Solid Time 19:00 Social Alcohol (once every 6 months pretty rare.) and No tobacco Airway Submandibular: within normal limits Cervical ROM: within normal limits Mallampati: Class II Dentition: false Pulmonary None reported CV/HEM None reported None reported Hepatic None reported GI None reported Metabolic Diabetes Mellitus ( doesnt check blood sugars like he should A1C 7.1 per patient) and Morbid Ob[place] [facility] [place] None reported Neuropsych None reported Anesthetic Plan ASA status: 3 Anesthesia: MAC Medications/Allergies Home Medications Medication Instructions Recorded Confirmed Last Taken Type Toe filler left foot #1 ea 04/22/20 11/16/22 Unknown Rx fluticasone propionate 50 1 spray intranasal DAILY 10/13/21 11/16/22 11/13/22 History mcg/actuation nasal spray,suspension (Flonase Allergy Relief) Diabetic shoes #1 ea 04/05/22 11/16/22 Unknown Rx AFO to left #1 ea 04/13/22 11/16/22 Unknown Rx Off loading modification for #1 ea 04/13/22 11/16/22 Unknown Rx patients AFO sub 4th metatarsal head. dulaglutide 0.75 mg/0.5 mL 0.75 mg SUBCUT .weekly 05/06/22 11/16/22 11/13/22 History subcutaneous pen injector (Trulicity) metformin 500 mg tablet,extended 500 mg PO DAILY 05/06/22 11/16/22 11/15/22 History release 24hr melatonin 10 mg tablet 20 mg PO DAILY PRN Sleep 07/06/22 11/16/22 11/13/22 History ropinirole 0.5 mg tablet 1 mg PO DAILY 07/06/22 11/16/22 11/15/22 History triamcinolone acetonide 0.1 % 1 applic topical BID #80 grams 08/08/22 11/16/22 11/02/22 Rx topical cream Diabetic shoe with toe filler #1 ea 10/12/22 11/16/22 Unknown Rx mupirocin 2 % topical ointment 1 applic topical BID 2 weeks #22 10/12/22 11/16/22 11/02/22 Rx grams Allergies Allergy/AdvReac Type Severity Reaction Status Date / Time shellfish derived Allergy Mild Nausea and Verified 11/16/22 06:39 Vomiting Current Medications Generic Name Dose Route Start Last Admin Trade Name Freq PRN Reason Stop Dose Admin Sodium Chloride 1,000 mls @ 30 mls/hr 11/16/22 06:15 11/16/22 06:33 Sodium Chloride 0.9% IV 11/17/22 06:14 30 mls/hr .Q24H RENATO Administration PFSH Anesthesia Medical History Abscess of leg, left Amputation of right ring finger Diabetes H/O drainage of abscess Peroneal tendonitis Rash 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 Surgical History Hx of appendectomy Status post transmetatarsal amputation of left foot Family History Father Diabetes Grandmother Diabetes Family/Other Diabetes Grandfather Stroke Mother Cancer Stage 1 colon cancer Denies family history of CAD (coronary artery disease) Clotting disorder Dementia Hyperlipidemia Psychiatric illness Chronic kidney disease (CKD) Suicide Anesthesia complication Bleeding disorder Family history of premature coronary artery disease Lung disease Hypertension Social History Smoking and tobacco status: former smoker Quit status (tobacco): has quit using tobacco Year quit tobacco: 6 years ago Alcohol intake: current Alcohol intake frequency: holidays/special occasions only Data Anesthesia Cardiac Studies: Echocardiogram Ultrasound 05/05/20 Holter Monitor 06/15/20
[2022-11-16 07:53] VITALS: BP 94/60; PULSE 81; RESP 16; TEMP 36.3; O2SAT 97
[2022-11-16 08:03] VITALS: BP 109/59; PULSE 83; RESP 16; O2SAT 95
--- NOTE | 2022-11-16 15:17 | ANE.PACU2 ---
Inpatient post-anesthesia follow up: Airway intact: Yes Vital signs: Temperature 97.4 F Pulse Rate 83 Respiratory Rate 16 Blood Pressure 109/59 Pulse Oximetry 95 Oxygen Delivery Me thod Room Air Oxygen Flow Rate Fraction of Inspir ed Oxygen Hydration adequate: Yes Nausea and vomiting: No Pain level: 2 Mental status: Baseline
== END 2022-11-16 08:30 | disposition home or self-care (01) ==
PROVIDERS: PCP Nurse Practitioner Family; Visit Provider Surgery
PROC: 0DJD8ZZ Inspection of Lower Intestinal Tract, Via Natural or Artificial Opening Endoscopic (ICD-10-PCS; CPT 45378; principal; 2022-11-16 07:30)
DX: K57.30 Diverticulosis of large intestine without perforation or abscess without bleeding (principal); Z86.010 Personal history of colon polyps; E11.9 Type 2 diabetes mellitus without complications; E66.01 Morbid (severe) obesity due to excess calories; Z68.31 Body mass index [BMI] 31.0-31.9, adult; Z79.84 Long term (current) use of oral hypoglycemic drugs; Z87.891 Personal history of nicotine dependence
CPT/HCPCS: 36416; 45378; 82962; J2704; J7030

== ENCOUNTER → 2022-11-25 08:39 | Outpatient (BNVA) | payer MEDICAID, SELFPAY | PROVIDERS: PCP Nurse Practitioner Family; Visit Provider Surgery | DX: Z09 Encounter for follow-up examination after completed treatment for conditions other than malignant neoplasm (principal); K57.31 Diverticulosis of large intestine without perforation or abscess with bleeding | CPT/HCPCS: 99212 ==

== ENCOUNTER → 2022-12-06 13:20 | Outpatient (BNVA) | payer MEDICAID, SELFPAY | PROVIDERS: PCP Nurse Practitioner Family; Visit Provider Podiatrist Foot & Ankle Surgery | DX: E11.42 Type 2 diabetes mellitus with diabetic polyneuropathy (principal); L84 Corns and callosities; Z89.432 Acquired absence of left foot; Z79.84 Long term (current) use of oral hypoglycemic drugs | CPT/HCPCS: 99214 ==

== ENCOUNTER 2023-01-04 13:07 | Oncology outpatient (recurring) (ONCR) | payer MEDICAID, SELFPAY ==
[2023-01-04 13:58] LABS: Basophils % 0.3 %; Eosinophils # 0.3 10^3/uL (0.0-0.8); Eosinophils % 3.3 %; Hematocrit 45.5 % (42.0-52.0); Lymphocytes # 1.8 10^3/uL (0.8-4.8); Lymphocytes % 20.4 %; Mean Corpuscular Hemoglobin 29.7 pg (28.0-34.0); Mean Corpuscular Volume 90.1 fl (80-94); Mean Platelet Volume 11.4 fL (7.4-10.4); Monocytes # 0.6 10^3/uL (0.2-0.9); Monocytes % 6.9 %; Neutrophils # 5.93 10^3/uL (1.8-7.7); Neutrophils % 68.6 %; Nucleated Red Blood Cells % 0 %; Platelet Count 166 10^3/cmm (130-400); Red Blood Count 5.05 10^6/uL (4.1-5.3); Red Cell Distribution Width 12.9 % (12.1-15.1); White Blood Count 8.7 10^3/uL (4.0-10.0)
[2023-01-04 14:26] LABS: Alanine Aminotransferase 12 U/L (0-41); Alkaline Phosphatase 72 U/L (40-130); Anion Gap 9.5 (5-19); Aspartate Amino Transferase 13 U/L (0-40); Blood Urea Nitrogen 8 mg/dL (6-20); Calcium 9.3 mg/dL (8.5-10.5); Carbon Dioxide 31 mmol/L (22-29); Chloride 106 mmol/L (98-107); Globulin 2.4 g/dL (1.3-4.6); Glomerular Filtration Rate 102.3 mL/min (90-130); Glucose 172 mg/dL (65-115); Lactate Dehydrogenase 155 U/L (135-225); Osmolality Calculated 296 mOsm/kg (285-295); Potassium 4.5 mmol/L (3.5-5.1); Sodium 142 mmol/L (136-145); Total Bilirubin 0.4 mg/dL (0.15-1.2); Total Protein 6.4 g/dL (6.6-8.7)
== END 2023-01-24 23:59 | disposition home or self-care (01) ==
LOC: ONCMED 13:07
PROVIDERS: PCP Nurse Practitioner Family; Visit Provider Internal Medicine Hematology & Oncology
DX: R59.0 Localized enlarged lymph nodes (principal); E11.40 Type 2 diabetes mellitus with diabetic neuropathy, unspecified; M19.011 Primary osteoarthritis, right shoulder; R21 Rash and other nonspecific skin eruption
CPT/HCPCS: 36415; 80053; 83615; 85025; 99213; 99214

== ENCOUNTER 2023-01-25 11:58 | Outpatient (CLI) | payer MEDICAID, SELFPAY ==
[2023-01-25] MEDS: iohexol 350 mg/mL 500 mL Btl (per mL) PO (12:50)
--- NOTE | 2023-01-25 13:30 | CT_ITS ---
WS: [id number] CT CHEST, ABDOMEN AND PELVIS WITH CONTRAST. HISTORY: Epigastric pain TECHNIQUE: Contiguous 5 mm axial imaging performed through the chest, abdomen and pelvis with IV cont rast, oral contrast has been provided. Coronal and sagittal reformats chest. Coronal and sagittal ref ormats through the abdomen and pelvis. All CT scans at [facility] use at least one of these d ose optimization techniques: automated exposure control; mA and/or kV adjustment per patient size (in cludes targeted exams where dose is matched to clinical indication); or iterative reconstruction. CONTRAST: Omnipaque 350; 95 mL IV. DLP: 1663.18 mGy.cm COMPARISON: 02/09/[address]: No pulmonary mass or pneumonia. Benign calcified granuloma RIGHT lower lobe measures 8 mm a nd is stable. No pericardial or pleural effusions. Normal thoracic aorta and pulmonary artery. No med iastinal or hilar adenopathy. Chest wall is negative. Small hiatal hernia. Abdomen CT: Normal size liver. No bile duct dilatation. Normal portal vein. Spleen is top normal size at 13.7 cm in length. Gallbladder is normally distended. There is a very small in amount of increase d density layering in the gallbladder. Stones or sludge may be present. There is no bile duct dilatat ion. Negative pancreas. Negative adrenal glands. No renal mass or obstruction. Mild atherosclerosis a kevin. Normally distended stomach. No small bowel obstruction. No wall thickening. Prior appendectomy. No co brennen obstruction. There are a few scattered diverticula in the descending colon. Only partial distenti on of the descending colon. No mass identified. No ascites or adenopathy. Small umbilical hernia contains fat only. Pelvic CT: Well-distended urinary bladder. No enhancement in the urinary bladder. No free fluid in th e pelvis. Small inguinal lymph nodes. No destructive bone lesions are identified. CT/CT chest abdpel w/*[id number] IMPRESSION: 1. Negative chest CT. No acute findings. No pneumonia. 2. Very slight increased density dependent portion of the gallbladder. May be stones or sludge. Recommend gallbladder ultrasound for further evaluation. 3. Spleen is top normal size at 13.7 cm. Slightly improved in size since 2020. 4. No ascites or adenopathy. 5. Prior appendectomy. 6. No significant diverticular disease. No GI tract obstruction.
[2023-01-25] MEDS: iohexol 350 mg/mL 500 mL Btl (per mL) IV (13:38)
== END 2023-01-25 11:59 | disposition home or self-care (01) ==
LOC: RAD 12:04
PROVIDERS: PCP Nurse Practitioner Family; Visit Provider Nurse Practitioner Family
DX: R10.13 Epigastric pain (principal); Z87.898 Personal history of other specified conditions
CPT/HCPCS: 71260; 74177; Q9967

== ENCOUNTER → 2023-02-02 14:45 | Outpatient (BNVA) | payer MEDICAID, SELFPAY | PROVIDERS: PCP Nurse Practitioner Family; Visit Provider Podiatrist Foot & Ankle Surgery | DX: E11.8 Type 2 diabetes mellitus with unspecified complications (principal); Z89.432 Acquired absence of left foot; E11.42 Type 2 diabetes mellitus with diabetic polyneuropathy; Z79.84 Long term (current) use of oral hypoglycemic drugs | CPT/HCPCS: 99214 ==

== ENCOUNTER 2023-02-08 15:28 | Oncology outpatient (recurring) (ONCR) | payer MEDICAID, SELFPAY | END 2023-02-24 23:59 | disposition home or self-care (01) | PROVIDERS: PCP Nurse Practitioner Family; Visit Provider Internal Medicine Hematology & Oncology | DX: R59.0 Localized enlarged lymph nodes (principal); N30.90 Cystitis, unspecified without hematuria; M19.011 Primary osteoarthritis, right shoulder; R73.09 Other abnormal glucose | CPT/HCPCS: 99214 ==

== ENCOUNTER → 2023-03-15 14:39 | Outpatient (BNVA) | payer MEDICAID, SELFPAY | PROVIDERS: PCP Nurse Practitioner Family; Visit Provider Surgery | DX: K80.20 Calculus of gallbladder without cholecystitis without obstruction (principal) | CPT/HCPCS: 99203; 99214 ==

== ENCOUNTER 2023-04-03 06:54 | Day surgery (SDC) | payer MEDICAID, SELFPAY ==
[2023-03-31 13:21] VITALS: BMI 33.3
[2023-04-03] VITALS (13 sets, daily range): BP systolic 141–169; BP diastolic 9–99; PULSE 102–110; RESP 14–18; TEMP 36.3–36.8; O2SAT 94–99
--- NOTE | 2023-04-03 07:08 | W.PM.OPSUD ---
Surgery/Procedure H&P Update DATE OF PROCEDURE: April 03, 2023 DATE H&P PERFORMED: 04/14/23 H&P UPDATE INFORMATION: I have reviewed H&P completed within last 30 days, I have examined patient prior to procedure and No changes to prior documentation PLANNED PROCEDURE: Operation Date: 04/03/23 08:35 Proposed Procedures p 96160 Lap ynog K80.20(Not Applicable) - Chet Sena DO
[2023-04-03] MEDS: sodium chloride 0.9% 1,000 ML 30 ML IV (07:37)
[2023-04-03 07:43] LABS: Glucose Point of Care 171 mg/dL (70-110)
[2023-04-03] MEDS: ceFAZolin 2,000 MG in sodium chloride 0.9% (plus) 50 ML 100 MG IV (08:43)
[2023-04-03] MEDS: lidocaine-epi 2% 20 mL INJ INJECTION (09:15)
--- NOTE | 2023-04-03 09:48 | P.OP_ITS ---
Operative Report Date of procedure: April 03, 2023 Pre-op diagnosis: Symptomatic cholelithiasis Post-op diagnosis: Same Procedure done: Laparoscopic cholecystectomy Specimens removed/disposition: Gallbladder Surgeon: Dr. Chet Sena DO Anesthesia: General Estimated blood loss (mL): 5 Complications: none apparent Brief History: This very pleasant 53-year-old gentleman with symptomatic cholelithiasis. Laparoscopic cholecystectomy was indicated. The risk and benefits were explained and documented. Procedure: Patient was wheeled into the operative room and placed on the OR table in a supine position. Abdomen was inspected prepped and draped in usual sterile fashion. Time-out was performed and all present were in agreement. A 15 blade scalp was used to make a stab incision in the left upper quadrant and intra- abdominal insufflation was achieved using a Veress needle. After localizing the tissue incisions were made and a 5 millimeter trocar was placed into the umbilicus as well as 2 in the right upper quadrant. A 12 millimeter trocar was placed in the epigastrium. Gallbladder was grasped and elevated. The triangle of Calot was carefully dissected using blunt dissection and electrocautery until the triangle of Calot clearly identified. The cystic duct was clipped p roximally and double clipped distally. The duct was then ligated proximally. The cystic artery was doubly clipped and ligated. The gallbladder was then removed from the liver bed using electrocautery. The gallbladder was removed from the abdomen using an Endo-Catch bag through the epigastric incision. The liver bed was inspected and no bleeding was seen. The abdomen was irrigated and suctioned. All ports removed. Skin was washed and dried. Incisions were closed with 4-0 Monocryl in a subcuticular interrupted fashion. Skin glue was applied. Patient tolerated the procedure well.
[2023-04-03] MEDS: ondansetron 2 mg/ML SDV 2 mL 4 MG IVP ×2 (10:02→10:24)
[2023-04-03] MEDS: HYDROmorphone 1 mg/mL INJ 1 mL 0.5 MG IVP (10:11)
[2023-04-03] MEDS: oxyCODONE-APAP 5-325 mg Tablet 1 TAB PO (10:45)
--- NOTE | 2023-04-03 14:04 | ANES.PREANE2 ---
Pre-Anesthetic Assessment Height/Weight: Height 1.91 m Weight 121.109 kg Temp Pulse Resp BP Pulse Ox O2 Del Method 97.3 F L 107 H 18 155/80 95 Room Air 04/03/23 10:32 04/03/23 10:58 04/03/23 10:58 04/03/23 10:58 04/03/23 10:58 04/03/23 10:58 Operation Date: 04/03/23 08:35 Proposed Procedures p 36708 Lap yong K80.20(Not Applicable) - Chet Sena DO Familial anesthetic complications: none Was Beta [place] taken within 24 hours: N/A Was Clonidine taken within 24 hours: N/A Last intake: Intake Last Liquid Date 04/02/23 Last Liquid Time 20:30 Last Solid Date 04/02/23 Last Solid Time 19:00 Social No alcohol and No tobacco Exam alert, oriented x 3, clear to auscultation bilaterally and regular rate & rhythm Airway Submandibular: within normal limits Cervical ROM: within normal limits Mallampati: Class II Dentition: chipped Metabolic Diabetes Mellitus and Morbid Obesity Anesthetic Plan ASA status: 3 Anesthesia: General Medications/Allergies Home Medications Medication Instructions Recorded Confirmed Last Taken Type Toe filler left foot #1 ea 04/22/20 03/15/23 Unknown Rx fluticasone propionate 50 1 spray intranasal DAILY 10/13/21 03/31/23 04/02/23 History mcg/actuation nasal spray,suspension (Flonase Allergy Relief) Diabetic shoes #1 ea 04/05/22 03/15/23 Unknown Rx AFO to left #1 ea 04/13/22 03/15/23 Unknown Rx Off loading modification for #1 ea 04/13/22 03/15/23 Unknown Rx patients AFO sub 4th metatarsal head. dulaglutide 0.75 mg/0.5 mL 0.75 mg SUBCUT .weekly 05/06/22 03/31/23 04/02/23 History subcutaneous pen injector (Trulicity) metformin 500 mg tablet,extended 500 mg PO DAILY 05/06/22 03/31/23 04/02/23 History release 24hr Diabetic shoe with toe filler #1 ea 10/12/22 03/15/23 Unknown Rx mupirocin 2 % topical ointment 1 applic topical BID PRN Rash 01/04/23 04/03/23 2 Months Ago History ~02/01/23 triamcinolone acetonide 0.1 % 1 applic topical BID PRN Rash 01/04/23 04/03/23 2 Months Ago History topical cream ~02/01/23 ropinirole 1 mg tablet 1 mg PO DAILY 02/08/23 03/31/23 04/02/23 History docusate sodium 100 mg capsule 100 mg PO BID #14 caps 04/03/23 Unknown Rx (DOK) oxycodone-acetaminophen 5 mg-325 1 tab PO Q6H PRN pain #20 tabs 04/03/23 Unknown Rx mg tablet Allergies Allergy/AdvReac Type Severity Reaction Status Date / Time shellfish derived Allergy Mild Nausea and Verified 03/31/23 13:19 Vomiting PFSH Anesthesia Medical History Abscess of leg, left Amputation of right ring finger Diabetes H/O drainage of abscess Peroneal tendonitis Rash 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 Surgical History Hx of appendectomy Status post transmetatarsal amputation of left foot Family History Father Diabetes Grandmother Diabetes Family/Other Diabetes Grandfather Stroke Mother Cancer Stage 1 colon cancer Denies family history of CAD (coronary artery disease) Clotting disorder Dementia Hyperlipidemia Psychiatric illness Chronic kidney disease (CKD) Suicide Anesthesia complication Bleeding disorder Family history of premature coronary artery disease Lung disease Hypertension Social History Smoking and tobacco status: former smoker Quit status (tobacco): has quit using tobacco Year quit tobacco: 6 years ago Alcohol intake: current Alcohol intake frequency: holidays/special occasions only Substance/Drug Use: never Data Anesthesia Cardiac Studies: Echocardiogram Ultrasound 05/05/20 Holter Monitor 06/15/20
--- NOTE | 2023-04-03 16:22 | ANE.PACU2 ---
Inpatient post-anesthesia follow up: Airway intact: Yes Vital signs: Temperature 97.3 F Pulse Rate 107 Respiratory Rate 18 Blood Pressure 155/80 Pulse Oximetry 95 Oxygen Delivery Me thod Room Air Oxygen Flow Rate Fraction of Inspir ed Oxygen Hydration adequate: Yes Nausea and vomiting: No Pain level: 4 Mental status: Baseline
== END 2023-04-03 11:56 | disposition home or self-care (01) ==
PROVIDERS: PCP Nurse Practitioner Family; Visit Provider Surgery
PROC: 0FT44ZZ Resection of Gallbladder, Percutaneous Endoscopic Approach (ICD-10-PCS; CPT 47562; principal; 2023-04-03 08:25)
DX: K80.10 Calculus of gallbladder with chronic cholecystitis without obstruction (principal); E11.9 Type 2 diabetes mellitus without complications; E66.01 Morbid (severe) obesity due to excess calories; Z68.33 Body mass index [BMI] 33.0-33.9, adult; Z79.84 Long term (current) use of oral hypoglycemic drugs; Z87.891 Personal history of nicotine dependence
CPT/HCPCS: 47562; 36416; 82962; 88304; J0690; J1100; J1170; J2250; J2370; J2405; J2704; J3010; J3490; J7030

== ENCOUNTER → 2023-04-18 14:00 | Outpatient (BNVA) | payer MEDICAID, SELFPAY | PROVIDERS: PCP Nurse Practitioner Family; Visit Provider Podiatrist Foot & Ankle Surgery | DX: Z89.432 Acquired absence of left foot (principal); E11.42 Type 2 diabetes mellitus with diabetic polyneuropathy; Z79.84 Long term (current) use of oral hypoglycemic drugs | CPT/HCPCS: 99213 ==

== ENCOUNTER → 2023-04-20 15:18 | Outpatient (BNVA) | payer MEDICAID, SELFPAY | PROVIDERS: PCP Nurse Practitioner Family; Visit Provider Surgery | DX: Z98.890 Other specified postprocedural states (principal); Z90.49 Acquired absence of other specified parts of digestive tract | CPT/HCPCS: 99024 ==

== ENCOUNTER 2023-06-08 18:53 | Emergency (ER) | payer MEDICAID, SELFPAY ==
[2023-06-08 19:01] VITALS: BP 173/101; PULSE 99; RESP 18; TEMP 36.6; O2SAT 96; BMI 32.5
[2023-06-08 19:33] LABS: Basophils % 0.4 %; Eosinophils # 0.4 10^3/uL (0.0-0.8); Eosinophils % 4.4 %; Hemoglobin 15.4 g/dL (11.7-16.6); Lymphocytes # 1.7 10^3/uL (0.8-4.8); Lymphocytes % 17.7 %; Mean Corpuscular HGB Conc 33.5 g/dL (30.0-36.0); Mean Corpuscular Hemoglobin 30.3 pg (28.0-34.0); Mean Corpuscular Volume 90.4 fl (80-94); Mean Platelet Volume 11.1 fL (7.4-10.4); Monocytes # 0.6 10^3/uL (0.2-0.9); Monocytes % 6.5 %; Neutrophils # 6.73 10^3/uL (1.8-7.7); Neutrophils % 70.3 %; Nucleated Red Blood Cells % 0 %; Platelet Count 171 10^3/cmm (130-400); Red Blood Count 5.09 10^6/uL (4.1-5.3); Red Cell Distribution Width 13.1 % (12.1-15.1); White Blood Count 9.6 10^3/uL (4.0-10.0)
[2023-06-08 19:38] LABS: INR 0.98 (0.8-1.2)
[2023-06-08 19:46] LABS: Alanine Aminotransferase 16 U/L (0-41); Albumin Level 4.2 g/dL (3.5-5.2); Alkaline Phosphatase 86 U/L (40-130); Anion Gap 15.3 (5-19); Aspartate Amino Transferase 18 U/L (0-40); Blood Urea Nitrogen 13 mg/dL (6-20); Calcium 8.9 mg/dL (8.5-10.5); Carbon Dioxide 28 mmol/L (22-29); Chloride 100 mmol/L (98-107); Globulin 2.7 g/dL (1.3-4.6); Glomerular Filtration Rate 70.6 mL/min (90-130); Glucose 202 mg/dL (65-115); Osmolality Calculated 294 mOsm/kg (285-295); Potassium 4.3 mmol/L (3.5-5.1); Sodium 139 mmol/L (136-145); Total Bilirubin 0.2 mg/dL (0.15-1.2); Total Protein 6.9 g/dL (6.6-8.7)
--- NOTE | 2023-06-08 20:16 | ED_ITS ---
HPI - GI Bleed General: Chief complaint: GI Bleed Stated complaint: passing blood Time Seen by Provider: 06/08/23 20:09 Source: patient Mode of arrival: ambulatory Limitations: no limitations History of Present Illness: 53-year-old male states that he went to the bathroom today states that he had bright red blood in his stool. He states that just happened 1 time he denies any pain he had a history of diverticulosis in the past. He has had no dark stools no vomiting he denies any fevers she denies any lightheadedness or weakness. 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 Surgical History History of cholecystectomy Hx of appendectomy Status post transmetatarsal amputation of left foot Family History Father Diabetes Grandmother Diabetes Family/Other Diabetes Grandfather Stroke Mother Cancer Stage 1 colon cancer Denies family history of CAD (coronary artery disease) Clotting disorder Dementia Hyperlipidemia Psychiatric illness Chronic kidney disease (CKD) Suicide Anesthesia complication Bleeding disorder Family history of premature coronary artery disease Lung disease Hypertension Social History Smoking and tobacco status: former smoker Quit status (tobacco): has quit using tobacco Year quit tobacco: 6 years ago Alcohol intake: current Alcohol intake frequency: holidays/special occasions only Substance/Drug Use: never Physical Exam Const: COMMON NORMALS: no acute distress, patient oriented x3 and healthy appearing HENMT: COMMON NORMALS: normocephalic and atraumatic HEAD & SCALP: normocephalic and atraumatic Eye: COMMON NORMALS: conjunctivae normal CONJUNCTIVA: Yes conjunctivae normal Neck/C-Spine: COMMON NORMALS: supple Chest: COMMONS NORMALS: normal inspection of the chest Resp: COMMON NORMALS: normal respiratory effort Cardio: COMMON NORMALS: regular rate, regular rhythm and No murmurs present (C ardio) RATE: regular rate RHYTHM: regular rhythm GI: COMMON NORMALS: Normal to inspection, nondistended, normoactive bowel sounds present, Soft to palpation, non-tender and no masses PALPATION: Yes Soft to palpation OTHER: Rectal exam is normal brown stool no blood noted Extremity: COMMON NORMALS: normal to inspection and full ROM Neuro: COMMON NORMALS: patient oriented x3, moves all extremities and no focal motor deficits Psych: COMMON NORMALS: mental status grossly normal, Normal thought process present and cooperative THOUGHT PROCESS: Normal thought process present Skin: COMMON NORMALS: no rashes or lesions noted and no wounds GENERAL SKIN EXAM: no rashes or lesions noted Course Vital Signs: Vital signs: Vital Signs Temperature 97.9 F 06/08/23 19:01 Pulse Rate 99 06/08/23 19:01 Respiratory Rate 18 06/08/23 19:01 Blood Pressure 173/101 06/08/23 19:01 Pulse Oximetry 96 06/08/23 19:01 Oxygen Delivery Me thod Room Air 06/08/23 19:01 MDM - GI Bleed Medical Decision Making Patient presents here with blood in the stool at home his rectal exam here is negative showed brown stool no signs of bleeding hemoglobin here is normal he does have a history of diverticulosis or could have a fissure no signs of any severe bleeding he has had no pain he is stable for discharge he is to follow-up with his PCP and return if worsening Medical Records I reviewed the patient's medical records. Lab Data I reviewed the patient's lab results. 06/08/23 19:15 06/08/23 19:15 Laboratory Results WBC 9.6 10^3/uL (4.0-10.0) 06/08/23 19:15 RBC 5.09 10^6/uL (4.1-5.3) 06/08/23 19:15 Hgb 15.4 g/dL (11.7-16.6) 06/08/23 19:15 Hct 46.0 % (42.0-52.0) 06/08/23 19:15 MCV 90.4 fl (80-94) 06/08/23 19:15 MCH 30.3 pg (28.0-34.0) 06/08/23 19:15 MCHC 33.5 g/dL (30.0-36.0) 06/08/23 19:15 RDW 13.1 % (12.1-15.1) 06/08/23 19:15 Plt Count 171 10^3/cmm (130-400) 06/08/23 19:15 MPV 11.1 fL (7.4-10.4) H 06/08/23 19:15 Neut % (Auto) 70.3 % 06/08/23 19:15 Lymph % (Auto) 17.7 % 06/08/23 19:15 [place] % (Auto) 6.5 % 06/08/23 19:15 Eos % (Auto) 4.4 % 06/08/23 19:15 Baso % (Auto) 0.4 % 06/08/23 19:15 Neut # (Auto) 6.73 10^3/uL (1.8-7.7) 06/08/23 19:15 Lymph # (Auto) 1.7 10^3/uL (0.8-4.8) 06/08/23 19:15 [place] # (Auto) 0.6 10^3/uL (0.2-0.9) 06/08/23 19:15 Eos # (Auto) 0.4 10^3/uL (0.0-0.8) 06/08/23 19:15 Baso # (Auto) 0.0 10^3/uL (0.0-0.1) 06/08/23 19:15 Nucleated RBC % (auto) 0 % 06/08/23 19:15 Nucleated RBCs # 0.0 /100WBC 06/08/23 19:15 PT 13.30 SECONDS (12.1-14.9) 06/08/23 19:15 INR 0.98 (0.8-1.2) 06/08/23 19:15 Sodium 139 mmol/L (136-145) 06/08/23 19:15 Potassium 4.3 mmol/L (3.5-5.1) 06/08/23 19:15 Chloride 100 mmol/L (98-107) 06/08/23 19:15 Carbon Dioxide 28 mmol/L (22-29) 06/08/23 19:15 Anion Gap 15.3 (5-19) 06/08/23 19:15 BUN 13 mg/dL (6-20) 06/08/23 19:15 Creatinine 1.1 mg/dL (0.7-1.2) 06/08/23 19:15 GFR Calculation 70.6 mL/min (90-130) L 06/08/23 19:15 Glucose 202 mg/dL (65-115) H 06/08/23 19:15 Calculated Osmolality 294 mOsm/kg (285-295) 06/08/23 19:15 Calcium 8.9 mg/dL (8.5-10.5) 06/08/23 19:15 Total Bilirubin 0.2 mg/dL (0.15-1.2) 06/08/23 19:15 AST 18 U/L (0-40) 06/08/23 19:15 ALT 16 U/L (0-41) 06/08/23 19:15 Alkaline Phosphatase 86 U/L (40-130) 06/08/23 19:15 Total Protein 6.9 g/dL (6.6-8.7) 06/08/23 19:15 Albumin 4.2 g/dL (3.5-5.2) 06/08/23 19:15 Globulin 2.7 g/dL (1.3-4.6) 06/08/23 19:15 Discharge Plan Discharge Patient Disposition: Home Clinical Impression: Acute lower GI bleeding Condition: Stable Prescriptions: No Action fluticasone propionate [Flonase Allergy Relief] 50 mcg/actuation spray,suspension 1 spray intranasal DAILY Rx Instructions: administer into each nostril (DME) Toe filler left foot See Rx Instructions .Route .MEDSUPPLY Qty: 1 0RF Rx Instructions: As directed Trulicity 0.75 mg/0.5 mL pen injector 0.75 mg SUBCUT .weekly metformin 500 mg tablet extended release 24hr 500 mg PO DAILY (DME) Diabetic shoes See Rx Instructions .Route .MEDSUPPLY Qty: 1 0RF Rx Instructions: With 3 pairs of inserts, custom made by [employer] mupirocin 2 % ointment 1 applic topical BID PRN (Reason: Rash) triamcinolone acetonide 0.1 % cream 1 applic topical BID PRN (Reason: Rash) Rx Instructions: To affected areas on trunk and extremities no more than 2 weeks/month as needed (DME) Diabetic shoe with toe filler Qty: 1 0RF Rx Instructions: As directed ropinirole 1 mg tablet 1 mg PO DAILY (DME) Off loading modification for patients AFO sub 4th metatarsal head. See Rx Instructions .Route .MEDSUPPLY Qty: 1 0RF Rx Instructions: As directed (DME) AFO to left See Rx Instructions .Route .MEDSUPPLY Qty: 1 0RF Rx Instructions: As directed by [employer] oxycodone-acetaminophen 5-325 mg tablet 1 tab PO Q6H PRN (Reason: pain) Qty: 20 0RF DOK 100 mg capsule 100 mg PO BID Qty: 14 0RF Discharge Orders: Discharge ED (Routine); Ordered 06/08/23 Ordered By: Jovi Barrios Referrals: Loc Augustin MD [Primary Care Provider] - 1-3 days Discharge Diet: Advance as tolerated Discharge Activity: Resume usual activity Patient Instructions: Rectal Bleeding (ED) Coding Level of Care Code ED Sport Shoe Spike Assembler for Hannah Dave
[2023-06-08 20:23] VITALS: BP 137/88; PULSE 93; RESP 18; O2SAT 93
[2023-06-08 20:42] VITALS: BP 129/86; PULSE 95; RESP 18; O2SAT 93
== END 2023-06-08 20:47 | disposition home or self-care (01) ==
PROVIDERS: Emergency Provider Emergency Medicine; PCP Family Medicine
DX: K92.2 Gastrointestinal hemorrhage, unspecified (principal)
CPT/HCPCS: 36415; 80053; 85025; 85610; 99283

== ENCOUNTER → 2023-06-15 14:00 | Outpatient (BNVA) | payer MEDICAID, SELFPAY | PROVIDERS: PCP Family Medicine; Visit Provider Nurse Practitioner Family | DX: L24.9 Irritant contact dermatitis, unspecified cause (principal); B35.2 Tinea manuum; B35.3 Tinea pedis | CPT/HCPCS: 99214 ==

== ENCOUNTER → 2023-06-19 09:10 | Outpatient (BNVA) | payer MEDICAID, SELFPAY | PROVIDERS: PCP Family Medicine; Visit Provider Podiatrist Foot & Ankle Surgery | DX: L60.8 Other nail disorders (principal); Z89.432 Acquired absence of left foot; E11.42 Type 2 diabetes mellitus with diabetic polyneuropathy; L84 Corns and callosities; Z79.84 Long term (current) use of oral hypoglycemic drugs | CPT/HCPCS: 11055; 11720 ==

== ENCOUNTER → 2023-07-20 09:20 | Outpatient (BNVA) | payer MEDICARE, OTHER, MEDICAID, SELFPAY | PROVIDERS: PCP Family Medicine; Visit Provider Nurse Practitioner Family | DX: B07.8 Other viral warts (principal); B35.2 Tinea manuum; B35.3 Tinea pedis; D22.5 Melanocytic nevi of trunk; L81.4 Other melanin hyperpigmentation | CPT/HCPCS: 17110; 99214 ==

== ENCOUNTER → 2023-08-31 09:42 | Outpatient (BNVA) | payer MEDICARE, OTHER, MEDICAID, SELFPAY | PROVIDERS: PCP Family Medicine; Visit Provider Nurse Practitioner Family | DX: B07.8 Other viral warts (principal); B35.2 Tinea manuum; B35.3 Tinea pedis; D22.5 Melanocytic nevi of trunk | CPT/HCPCS: 17110; 99214 ==

== ENCOUNTER → 2023-09-18 09:53 | Outpatient (BNVA) | payer MEDICARE, OTHER, MEDICAID, SELFPAY | PROVIDERS: PCP Family Medicine; Visit Provider Podiatrist Foot & Ankle Surgery | DX: E11.42 Type 2 diabetes mellitus with diabetic polyneuropathy (principal); Z89.432 Acquired absence of left foot; B35.3 Tinea pedis; Z79.84 Long term (current) use of oral hypoglycemic drugs | CPT/HCPCS: 99213 ==

== ENCOUNTER → 2024-01-02 09:16 | Outpatient (BNVA) | payer MEDICARE, MEDICAID, SELFPAY | PROVIDERS: PCP Family Medicine; Visit Provider Podiatrist Foot & Ankle Surgery | DX: Z89.432 Acquired absence of left foot (principal); E11.42 Type 2 diabetes mellitus with diabetic polyneuropathy | CPT/HCPCS: 99213 ==

== ENCOUNTER 2024-01-08 12:29 | Emergency (ER) | payer MEDICARE, MEDICAID, SELFPAY ==
--- NOTE | 2024-01-08 12:32 | XRR_ITS ---
PROCEDURE INFORMATION: Exam: XR Chest Exam date and time: 01/08/2024 12:54 PM Age: 53 years old Clinical indication: Shortness of breath; Additional info: SOB TECHNIQUE: Imaging protocol: Radiologic exam of the chest. Views: 1 view. COMPARISON: CT chest abdpel w/*[id number] 01/25/2023 1:31 PM FINDINGS: Lungs: Calcified granuloma right mid lung. Otherwise, unremarkable. Pleural spaces: Unremarkable. No pleural effusion. No pneumothorax. Heart/Mediastinum: Unremarkable. No cardiomegaly. Bones/joints: Unchanged mild scoliosis with mild and moderate multilevel spondylosis. XR/XR chest 1V portable [id number] IMPRESSION: No acute findings.
[2024-01-08 12:38] VITALS: BP 172/92; PULSE 99; RESP 18; TEMP 36.8; O2SAT 95; BMI 34.2
--- NOTE | 2024-01-08 12:40 | ECG_ITS ---
[facility] Test Date: 2024-01-08 Pat Name: Jose Juan Collins Department: Room: Gender: Male Tig Welder: : 1970 Requested By: Jovi Barrios Order Number: [id number] Macario MD: Marcelino Allen M.D. Measurements Intervals Simon Rate: 98 P: 80 DE: 170 QRS: -50 QRSD: 121 T: 70 QT: 335 QTc: 428 Interpretive Statements SINUS RHYTHM LEFT ANTERIOR FASCICULAR BLOCK [QRS AXIS <= -45, QR IN I, RS IN II] Compared to ECG 11/02/2019 05:58:49 Left anterior fascicular block now present Sinus tachycardia no longer present Left-axis deviation no longer present Electronically Signed On 01-08-2024 14:19:21 PHARMACEUTICAL COMPOUNDING SUPERVISOR by Marcelino Allen M.D. [email or web address]
[2024-01-08 12:57] LABS: Basophils # 0.1 10^3/uL (0.0-0.1); Basophils % 0.7 %; Eosinophils # 0.3 10^3/uL (0.0-0.8); Eosinophils % 3.6 %; Hematocrit 45.4 % (37-53); Lymphocytes # 1.6 10^3/uL (0.8-4.8); Lymphocytes % 16.9 %; Mean Corpuscular HGB Conc 33.9 g/dL (30-55); Mean Corpuscular Hemoglobin 30.4 pg (27-33); Mean Corpuscular Volume 89.7 fl (82-101); Monocytes # 0.6 10^3/uL (0.2-0.9); Monocytes % 6.3 %; Neutrophils # 6.61 10^3/uL (1.8-7.7); Neutrophils % 71.6 %; Nucleated Red Blood Cells % 0 %; Platelet Count 169 10^3/cmm (157-399); Red Blood Count 5.06 10^6/uL (3.85-5.65); Red Cell Distribution Width 13.4 % (12.1-15.1); White Blood Count 9.22 10^3/uL (3.29-11.43)
--- NOTE | 2024-01-08 13:24 | W.ED.ABDPA2 ---
HPI - Abdominal Pain General: Chief Complaint: Abdominal Pain Stated Complaint: abd pain, sob Time Seen by Provider: 01/08/24 12:38 Source: patient Mode of arrival: ambulatory History of Present Illness: 53-year-old male presents emergency room complaining of abdominal pain is worse when he coughs or breathes or moves. He has not had a productive cough has had quite a harsh cough last several days. He also noticed some bulging in the middle of his abdomen is concerned he has a hernia. No nausea vomiting. 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 H/O drainage of abscess Diabetes Surgical History History of cholecystectomy Hx of appendectomy Status post transmetatarsal amputation of left foot Family History Father Diabetes Grandmother Diabetes Family/Other Diabetes Grandfather Stroke Mother Cancer Stage 1 colon cancer Denies family history of CAD (coronary artery disease) Clotting disorder Dementia Hyperlipidemia Psychiatric illness Chronic kidney disease (CKD) Suicide Anesthesia complication Bleeding disorder Family history of premature coronary artery disease Lung disease Hypertension Social History Smoking and tobacco/nicotine status: former use of tobacco/nicotine Quit status (tobacco/nicotine): has quit using Year quit tobacco: 6 years ago Alcohol intake: current Alcohol intake frequency: holidays/special occasions only Substance/Drug Use: never Physical Exam Const: COMMON NORMALS: no acute distress GENERAL APPEARANCE: cooperative and comfortable ORIENTATION/CONSCIOUSNESS: Yes awake, Yes oriented to person, Yes oriented to place and Yes oriented to time HENMT: COMMON NORMALS: normocephalic, atraumatic and hearing grossly normal bilaterally HEAD & SCALP: normocephalic and atraumatic Resp: COMMON NORMALS: normal respiratory effort, No retractions, No use of accessory muscles and clear to auscultation bilaterally AUSCULTATION: clear to auscultation bilaterally Cardio: COMMON NORMALS: regular rate, regular rhythm and No murmurs present (Cardio) RATE: regular rate RHYTHM: regular rhythm GI: COMMON NORMALS: Soft to palpation and No hepatosplenomegaly present AUSCULTATION: Yes normoactive bowel sounds PALPATION: Yes Soft to palpation, No Tenderness to palpation present (GI), No Guarding due to palpation present (GI) and Yes No hepatosplenomegaly present Extremity: COMMON NORMALS: normal to inspection, capillary refill normal, no clubbing, cyanosis or edema, no calf tenderness and no pedal edema Neuro: SENSORIUM/ORIENTATION: Yes oriented to person, Yes oriented to place and Yes oriented to time Skin: COMMON NORMALS: no rashes or lesions noted GENERAL SKIN EXAM: no rashes or lesions noted Course Vital Signs: Vital signs: Vital Signs Temperature 98.3 F 01/08/24 12:38 Pulse Rate 93 01/08/24 15:02 Respiratory Rate 18 01/08/24 12:38 Blood Pressure 145/96 01/08/24 15:02 Pulse Oximetry 94 01/08/24 15:02 Oxygen Delivery Me thod Room Air 01/08/24 14:15 MDM - Abdominal Pain Medical Decision Making Pain reproducible along costal margin. He does have a rectus diastasis but there is no incarceration no umbilical hernias no incisional hernias from previous laparoscopy. Discharge home diclofenac as needed follow-up with primary care. Labs and imaging reviewed. Medical Records I reviewed the patient's medical records. Lab Data I reviewed the patient's lab results. 01/08/24 12:48 01/08/24 12:48 Labs/Radiology: Radiology Impressions Chest X-Ray 01/08/24 12:32 IMPRESSION: No acute findings. Laboratory Results WBC 9.22 10^3/uL (3.29-11.43) 01/08/24 12:48 RBC 5.06 10^6/uL (3.85-5.65) 01/08/24 12:48 Hgb 15.40 g/dL (11.27-16.99) 01/08/24 12:48 Hct 45.4 % (37-53) 01/08/24 12:48 MCV 89.7 fl (82-101) 01/08/24 12:48 MCH 30.4 pg (27-33) 01/08/24 12:48 MCHC 33.9 g/dL (30-55) 01/08/24 12:48 RDW 13.4 % (12.1-15.1) 01/08/24 12:48 Plt Count 169 10^3/cmm (157-399) 01/08/24 12:48 MPV 11.0 fL (7.4-10.4) H 01/08/24 12:48 Neut % (Auto) 71.6 % 01/08/24 12:48 Lymph % (Auto) 16.9 % 01/08/24 12:48 [place] % (Auto) 6.3 % 01/08/24 12:48 Eos % (Auto) 3.6 % 01/08/24 12:48 Baso % (Auto) 0.7 % 01/08/24 12:48 Neut # (Auto) 6.61 10^3/uL (1.8-7.7) 01/08/24 12:48 Lymph # (Auto) 1.6 10^3/uL (0.8-4.8) 01/08/24 12:48 [place] # (Auto) 0.6 10^3/uL (0.2-0.9) 01/08/24 12:48 Eos # (Auto) 0.3 10^3/uL (0.0-0.8) 01/08/24 12:48 Baso # (Auto) 0.1 10^3/uL (0.0-0.1) 01/08/24 12:48 Nucleated RBC % (auto) 0 % 01/08/24 12:48 Nucleated RBCs # 0.0 /100WBC 01/08/24 12:48 Sodium 139 mmol/L (136-145) 01/08/24 12:48 Potassium 4.6 mmol/L (3.5-5.1) 01/08/24 12:48 Chloride 102 mmol/L (98-107) 01/08/24 12:48 Carbon Dioxide 28 mmol/L (22-29) 01/08/24 12:48 Anion Gap 13.6 (5-19) 01/08/24 12:48 BUN 13 mg/dL (6-20) 01/08/24 12:48 Creatinine 0.9 mg/dL (0.7-1.2) 01/08/24 12:48 GFR Calculation 89.0 mL/min (90-130) L 01/08/24 12:48 Glucose 202 mg/dL (65-115) H 01/08/24 12:48 Calculated Osmolality 294 mOsm/kg (285-295) 01/08/24 12:48 Calcium 9.0 mg/dL (8.5-10.5) 01/08/24 12:48 Total Bilirubin 0.4 mg/dL (0.15-1.2) 01/08/24 12:48 AST 16 U/L (0-40) 01/08/24 12:48 ALT 15 U/L (0-41) 01/08/24 12:48 Alkaline Phosphatase 107 U/L (40-130) 01/08/24 12:48 NT-Pro-B Natriuret Pep 249 pg/mL (0-125) H 01/08/24 12:48 Total Protein 7.8 g/dL (6.6-8.7) 01/08/24 12:48 Albumin 4.4 g/dL (3.5-5.2) 01/08/24 12:48 Globulin 3.4 g/dL (1.3-4.6) 01/08/24 12:48 Lipase 22 U/L (13-60) 01/08/24 12:48 All radiology interpretation(s) finalized by discharge Discharge Plan Discharge Patient Disposition: Home Clinical Impression: Acute chest wall pain Condition: Stable Prescriptions: New doxycycline hyclate 100 mg capsule 100 mg PO BID 10 Days Qty: 20 0RF albuterol sulfate 90 mcg/actuation HFA aerosol inhaler 2 inh INHALATION Q4H PRN (Reason: shortness of breath or wheezing) Qty: 18 0RF No Action fluticasone propionate [Flonase Allergy Relief] 50 mcg/actuation spray,suspension 1 spray intranasal DAILY Rx Instructions: administer into each nostril (DME) Toe filler left foot See Rx Instructions .Route .MEDSUPPLY Qty: 1 0RF Rx Instructions: As directed metformin 500 mg tablet extended release 24hr 500 mg PO BID (DME) accomadative orthotic bilaterally with toe filler to the left and diabetic shoes See Rx Instructions .Route .MEDSUPPLY Qty: 1 0RF Rx Instructions: As directed by [facility] ([facility]) Diabetic shoes See Rx Instructions .Route .MEDSUPPLY Qty: 1 0RF Rx Instructions: With 3 pairs of inserts, custom made by [employer] ([facility]) Diabetic shoe with toe filler Qty: 1 0RF Rx Instructions: As directed ropinirole 1 mg tablet 1 mg PO DAILY (DME) Off loading modification for patients AFO sub 4th metatarsal head. See Rx Instructions .Route .MEDSUPPLY Qty: 1 0RF Rx Instructions: As directed ([facility]) AFO to left See Rx Instructions .Route .MEDSUPPLY Qty: 1 0RF Rx Instructions: As directed by [employer] lisinopril 10 mg tablet 10 mg PO DAILY Trulicity 1.5 mg/0.5 mL pen injector 1.5 mg SUBCUT Q7D albuterol sulfate 90 mcg/actuation HFA aerosol inhaler 1 - 2 puff INHALATION Q4H PRN (Reason: Shortness Of Breath) Discharge Orders: Discharge ED (Routine); Ordered 01/08/24 Ordered By: Sampson Wallace Referrals: Loc Augustin MD [Primary Care Provider] - Discharge Diet: Usual diet Discharge Activity: Increase activity as tolerated Patient Instructions: Opioid Safety, Pain Management Activity Restrictions/Additional Instructions: Thank you for choosing [facility] for your healthcare needs today. Please realize this is an emergency room and that we are providing you with a medical screening exam and this may not be complete and all inclusive of all the testing and or work up that you may need to determine your ailment or severity of your illness. It is very important that you follow up as instructed or that you return to the Emergency Department should you have concerns or if your condition changes or worsens in any way. Coding Level of Care Code ED Deli/Bakery Associate for Hannah Dave
[2024-01-08 13:30] VITALS: BP 149/86; PULSE 89; O2SAT 94
[2024-01-08 13:30] LABS: Alanine Aminotransferase 15 U/L (0-41); Albumin Level 4.4 g/dL (3.5-5.2); Alkaline Phosphatase 107 U/L (40-130); Anion Gap 13.6 (5-19); Aspartate Amino Transferase 16 U/L (0-40); Blood Urea Nitrogen 13 mg/dL (6-20); Carbon Dioxide 28 mmol/L (22-29); Chloride 102 mmol/L (98-107); Globulin 3.4 g/dL (1.3-4.6); Glucose 202 mg/dL (65-115); Lipase 22 U/L (13-60); NT Pro B Type Natriuretic Pept 249 pg/mL (0-125); Osmolality Calculated 294 mOsm/kg (285-295); Potassium 4.6 mmol/L (3.5-5.1); Sodium 139 mmol/L (136-145); Total Bilirubin 0.4 mg/dL (0.15-1.2); Total Protein 7.8 g/dL (6.6-8.7)
[2024-01-08 14:15] VITALS: BP 132/93; PULSE 91; O2SAT 94
[2024-01-08 15:02] VITALS: BP 145/96; PULSE 93; O2SAT 94
== END 2024-01-08 15:03 | disposition home or self-care (01) ==
PROVIDERS: Emergency Medicine; Emergency Provider Family Medicine; PCP Family Medicine
DX: R07.89 Other chest pain (principal); Z79.85 Long-term (current) use of injectable non-insulin antidiabetic drugs; Z79.84 Long term (current) use of oral hypoglycemic drugs; Z87.891 Personal history of nicotine dependence; E11.9 Type 2 diabetes mellitus without complications
CPT/HCPCS: 71045; 80053; 83690; 83880; 85025; 93005; 99285

== ENCOUNTER → 2024-04-02 11:01 | Outpatient (BNVA) | payer MEDICARE, MEDICAID, SELFPAY | PROVIDERS: PCP Family Medicine; Visit Provider Podiatrist Foot & Ankle Surgery | DX: Z89.432 Acquired absence of left foot (principal); E11.42 Type 2 diabetes mellitus with diabetic polyneuropathy; L60.3 Nail dystrophy; L84 Corns and callosities; Z79.84 Long term (current) use of oral hypoglycemic drugs | CPT/HCPCS: 11055; 11720 ==

== ENCOUNTER → 2024-07-02 09:55 | Outpatient (BNVA) | payer MEDICARE, MEDICAID, SELFPAY | PROVIDERS: PCP Family Medicine; Visit Provider Podiatrist Foot & Ankle Surgery | DX: Z89.432 Acquired absence of left foot (principal); E11.42 Type 2 diabetes mellitus with diabetic polyneuropathy; L60.3 Nail dystrophy; L84 Corns and callosities; Z79.84 Long term (current) use of oral hypoglycemic drugs | CPT/HCPCS: 11055; 11720 ==

== ENCOUNTER 2024-08-26 20:13 | Emergency (ER) | payer MEDICARE, MEDICAID, SELFPAY ==
[2024-08-26 20:18] VITALS: BP 103/69; PULSE 106; TEMP 36.8; O2SAT 96; BMI 34.2
[2024-08-26 21:20] VITALS: BP 141/73; PULSE 94; RESP 18; O2SAT 94
[2024-08-26 21:22] LABS: Basophils # 0.1 10^3/uL (0.0-0.1); Basophils % 0.6 %; Eosinophils # 0.2 10^3/uL (0.0-0.8); Eosinophils % 2.2 %; Lymphocytes # 1.7 10^3/uL (0.8-4.8); Lymphocytes % 18.2 %; Mean Corpuscular HGB Conc 33.2 g/dL (30-55); Mean Corpuscular Hemoglobin 30.6 pg (27-33); Mean Corpuscular Volume 92.2 fl (82-101); Mean Platelet Volume 10.8 fL (7.4-10.4); Monocytes # 0.7 10^3/uL (0.2-0.9); Monocytes % 8.1 %; Neutrophils # 6.33 10^3/uL (1.8-7.7); Neutrophils % 69.7 %; Nucleated Red Blood Cells % 0 %; Platelet Count 169 10^3/cmm (157-399); Red Blood Count 4.77 10^6/uL (3.85-5.65); Red Cell Distribution Width 13.5 % (12.1-15.1); White Blood Count 9.08 10^3/uL (3.29-11.43)
--- NOTE | 2024-08-26 21:34 | W.ED.GIBLEED ---
HPI - GI Bleed General: Chief complaint: GI Bleed Stated complaint: Pooping Blood and Blood clots Time Seen by Provider: 08/26/24 20:54 History of Present Illness: Patient presents to the ER with complaints of passing large amount of bright red blood with clots per rectum with every BM times last 2 days. Patient said he felt sick on Monday with nausea and vomiting but since then has felt better, patient denies any abdominal pain, patient has had this before. Patient is had approximate 3 colonoscopies in the past with the last one being approximately year and a half ago when he was diagnosed with diverticulosis. Related Data Home Medications Medication Instructions Recorded Confirmed fluticasone propionate 50 1 spray intranasal DAILY 10/13/21 07/02/24 mcg/actuation nasal spray,suspension (Flonase Allergy Relief) metformin 500 mg tablet,extended 500 mg PO BID 05/06/22 07/02/24 release 24hr (osmotic) albuterol sulfate 90 mcg/actuation 1 - 2 puff inhalation Q4H PRN 01/08/24 07/02/24 aerosol inhaler Shortness Of Breath lisinopril 10 mg tablet 10 mg PO DAILY 01/08/24 07/02/24 dulaglutide 1.5 mg/0.5 mL 3 mg SUBCUT Q7D 04/02/24 07/02/24 subcutaneous pen injector ([facility]) ropinirole 1 mg tablet 2 mg PO DAILY 04/02/24 07/02/24 Previous Rx's Medication Instructions Recorded Toe filler left foot #1 ea 04/22/20 Diabetic shoes #1 ea 04/05/22 AFO to left #1 ea 04/13/22 Off loading modification for #1 ea 04/13/22 patients AFO sub 4th metatarsal head. Diabetic shoe with toe filler #1 ea 10/12/22 accomadative orthotic bilaterally #1 ea 09/18/23 with toe filler to the left and diabetic shoes albuterol sulfate 90 mcg/actuation 2 inh inhalation Q4H PRN shortness 01/08/24 aerosol inhaler of breath or wheezing #18 grams Allergies Allergy/AdvReac Type Severity Reaction Status Date / Time shellfish derived Allergy Mild Nausea and Verified 08/26/24 20:23 Vomiting Review of Systems General: Reports: 10 or more systems reviewed and unremarkable except in HPI and below PFSH ED PFSH: Medical History Rash Peroneal tendonitis Abscess of leg, left 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 H/O drainage of abscess Diabetes Surgical History History of cholecystectomy Hx of appendectomy Status post transmetatarsal amputation of left foot Family History Father Diabetes Grandmother Diabetes Family/Other Diabetes Grandfather Stroke Mother Cancer Stage 1 colon cancer Denies family history of CAD (coronary artery disease) Clotting disorder Dementia Hyperlipidemia Psychiatric illness Chronic kidney disease (CKD) Suicide Anesthesia complication Bleeding disorder Family history of premature coronary artery disease Lung disease Hypertension Social History Smoking and tobacco/nicotine status: unknown if used tobacco/nicotine Quit status (tobacco/nicotine): has quit using Year quit tobacco: 6 years ago Alcohol intake: current Alcohol intake frequency: holidays/special occasions only Substance/Drug Use: never Physical Exam Const: COMMON NORMALS: no acute distress, average body habitus, patient oriented x3, no limitations, healthy appearing, alert and well nourished HENMT: COMMON NORMALS: normocephalic, atraumatic, hearing grossly normal bilaterally, external ears normal, Normal external nose present and moist oral mucous membranes HEAD & SCALP: normocephalic and atraumatic NOSE: Normal external nose present EXTERNAL EAR: Yes external ears normal Neck/C-Spine: COMMON NORMALS: no JVD Chest: COMMONS NORMALS: normal inspection of the chest and normal palpation of entire chest wall Resp: COMMON NORMALS: normal respiratory effort, No retractions, No use of accessory muscles and clear to auscultation bilaterally AUSCULTATION: clear to auscultation bilaterally Cardio: COMMON NORMALS: no JVD, regular rate, regular rhythm, S1 normal heart sound present, S2 normal heart sound present, No gallops present (Cardio), No clicks present (Cardio), No murmurs present (Cardio) and No rub (Cardio) RATE: regular rate RHYTHM: regular rhythm HEART SOUNDS: S1 normal heart sound present and S2 normal heart sound present GI: COMMON NORMALS: Normal to inspection, nondistended, normoactive bowel sounds present, Soft to palpation, non-tender, No hepatosplenomegaly present and no masses PALPATION: Yes Soft to palpation and Yes No hepatosplenomegaly present Neuro: COMMON NORMALS: patient oriented x3 SENSORIUM/ORIENTATION: Yes alert Course Vital Signs: Vital signs: Vital Signs Temperature 98.2 F 08/26/24 20:18 Pulse Rate 98 08/26/24 21:55 Respiratory Rate 18 08/26/24 21:55 Blood Pressure 167/98 08/26/24 21:55 Pulse Oximetry 99 08/26/24 21:55 Oxygen Delivery Me thod Room Air 08/26/24 21:55 MDM - GI Bleed Medical Decision Making Lab work reveals stable hemoglobin, abdominal pelvis CT scan negative for active, discussed these results with the patient. Will refer them back to their PCP for further evaluation and treatment. Medical Records I reviewed the patient's medical records. Lab Data I reviewed the patient's lab results. 08/26/24 21:08 08/26/24 21:08 Radiology Impressions Abdomen/Pelvis CT 08/26/24 21:35 IMPRESSION: 1. Negative for contrast extravasation seen to indicate a source of gastrointestinal bleeding. 2. Hepatic steatosis. 3. Cholecystectomy. 4. Spleen enlarged to 16 cm. 5. Diverticulosis without diverticulitis. Laboratory Results WBC 9.08 10^3/uL (3.29-11.43) 08/26/24 21:08 RBC 4.77 10^6/uL (3.85-5.65) 08/26/24 21:08 Hgb 14.60 g/dL (11.27-16.99) 08/26/24 21:08 Hct 44.0 % (37-53) 08/26/24 21:08 MCV 92.2 fl (82-101) 08/26/24 21:08 MCH 30.6 pg (27-33) 08/26/24 21:08 MCHC 33.2 g/dL (30-55) 08/26/24 21:08 RDW 13.5 % (12.1-15.1) 08/26/24 21:08 Plt Count 169 10^3/cmm (157-399) 08/26/24 21:08 MPV 10.8 fL (7.4-10.4) H 08/26/24 21:08 Neut % (Auto) 69.7 % 08/26/24 21:08 Lymph % (Auto) 18.2 % 08/26/24 21:08 [place] % (Auto) 8.1 % 08/26/24 21:08 Eos % (Auto) 2.2 % 08/26/24 21:08 Baso % (Auto) 0.6 % 08/26/24 21:08 Neut # (Auto) 6.33 10^3/uL (1.8-7.7) 08/26/24 21:08 Lymph # (Auto) 1.7 10^3/uL (0.8-4.8) 08/26/24 21:08 [place] # (Auto) 0.7 10^3/uL (0.2-0.9) 08/26/24 21:08 Eos # (Auto) 0.2 10^3/uL (0.0-0.8) 08/26/24 21:08 Baso # (Auto) 0.1 10^3/uL (0.0-0.1) 08/26/24 21:08 Nucleated RBC % (auto) 0 % 08/26/24 21:08 Nucleated RBCs # 0.0 /100WBC 08/26/24 21:08 PT 13.00 SECONDS (12.1-14.9) 08/26/24 21:08 INR 0.95 (0.8-1.2) 08/26/24 21:08 Sodium 140 mmol/L (136-145) 08/26/24 21:08 Potassium 4.5 mmol/L (3.5-5.1) 08/26/24 21:08 Chloride 101 mmol/L (98-107) 08/26/24 21:08 Carbon Dioxide 29 mmol/L (22-29) 08/26/24 21:08 Anion Gap 14.5 (5-19) 08/26/24 21:08 BUN 20 mg/dL (6-20) 08/26/24 21:08 Creatinine 1.2 mg/dL (0.7-1.2) 08/26/24 21:08 GFR Calculation 63.6 mL/min (90-130) L 08/26/24 21:08 Glucose 227 mg/dL (65-115) H 08/26/24 21:08 Calculated Osmolality 300 mOsm/kg (285-295) H 08/26/24 21:08 Calcium 9.5 mg/dL (8.5-10.5) 08/26/24 21:08 Total Bilirubin 0.4 mg/dL (0.15-1.2) 08/26/24 21:08 AST 14 U/L (0-40) 08/26/24 21:08 ALT 16 U/L (0-41) 08/26/24 21:08 Alkaline Phosphatase 90 U/L (40-130) 08/26/24 21:08 Total Protein 6.8 g/dL (6.6-8.7) 08/26/24 21:08 Albumin 4.2 g/dL (3.5-5.2) 08/26/24 21:08 Globulin 2.6 g/dL (1.3-4.6) 08/26/24 21:08 All radiology interpretation(s) finalized by discharge Discharge Plan Discharge Patient Disposition: Home Clinical Impression: Acute lower gastrointestinal bleeding Condition: Stable Prescriptions: No Action fluticasone propionate [Flonase Allergy Relief] 50 mcg/actuation spray,suspension 1 spray intranasal DAILY Rx Instructions: [place] into each nostril [place] [place]e filler left foot See Rx Instructions .Route .MEDSUPPLY Qty: 1 0RF Rx Instructions: As directed metformin 500 mg tablet extended release 24hr 500 mg PO BID [place] [place] accomadative orthotic bilaterally with toe filler to the left and diabetic shoes See Rx Instructions .Route .MEDSUPPLY Qty: 1 0RF Rx Instructions: As directed by [facility] Michaela Cab[facility] [place] [place] Diabetic shoes See Rx Instructions .Route .MEDSUPPLY Qty: 1 0RF Rx Instructions: With 3 pairs of inserts, custom made by [employer] [place] [place] Diabetic shoe with toe filler Qty: 1 0RF Rx Instructions: As directed ropinirole 1 mg tablet 2 mg PO DAILY [place] [place] Off loading modification for patients AFO sub 4th metatarsal head. See Rx Instructions .Route .MEDSUPPLY Qty: 1 0RF Rx Instructions: As directed [place] [place] AFO to left See Rx Instructions .Route .MEDSUPPLY Qty: 1 0RF Rx Instructions: As directed by [employer] lisinopril 10 mg tablet 10 mg PO DAILY albuterol sulfate 90 mcg/actuation HFA aerosol inhaler 1 - 2 puff INHALATION Q4H PRN (Reason: Shortness Of Breath) albuterol sulfate 90 mcg/actuation HFA aerosol inhaler 2 inh INHALATION Q4H PRN (Reason: shortness of breath or wheezing) Qty: 18 0RF Trulicity 1.5 mg/0.5 mL pen injector 3 mg SUBCUT Q7D Discharge Orders: Discharge ED (Routine); Ordered 08/26/24 Ordered By: Ezequiel Kellogg Referrals: Loc Augustin MD [Primary Care Provider] - 1 week Patient Instructions: Gastrointestinal Bleeding (ED) Activity Restrictions/Additional Instructions: Your lab work was stable, your CT scan did not reveal any active source of bleeding. Please follow-up with your family practitioner in the next 7 to 10 days for further eval. This may include sigmoidoscopy or colonoscopy. Coding Level of Care Code ED Hospital Director for Hannah Dave
[2024-08-26 21:35] LABS: INR 0.95 (0.8-1.2)
--- NOTE | 2024-08-26 21:35 | CTR_ITS ---
PROCEDURE INFORMATION: Exam: CT Abdomen And Pelvis With Contrast Exam date and time: 08/26/2024 9:44 PM Age: 54 years old Clinical indication: Other: Rectal bleeding with clots, HX diverticulosis TECHNIQUE: Imaging protocol: Computed tomography of the abdomen and pelvis with contrast. Radiation optimization: All CT scans at this facility use at least one of these dose optimization techniques: automated exposure control; mA and/or kV adjustment per patient size (includes targeted exams where dose is matched to clinical indication); or iterative reconstruction. Contrast material: OMNI 350; Contrast volume: 100 ml; Contrast route: INTRAVENOUS (IV); COMPARISON: CT chest abdpel w/*[id number] 01/25/2023 1:31 PM RADIATION DOSE METRICS: Total DLP (mGy-cm): 1174 FINDINGS: Liver: Hepatic steatosis. Gallbladder and biliary ducts: Cholecystectomy. Pancreas: Normal. No ductal dilation. Spleen: Spleen enlarged to 16 cm. Adrenal glands: Normal. No mass. Kidneys and ureters: Normal. No hydronephrosis. Stomach and bowel: Diverticulosis without diverticulitis. Appendix: No evidence of appendicitis. Intraperitoneal space: Unremarkable. No free air. No significant fluid collection. Vasculature: Unremarkable. No abdominal aortic aneurysm. Lymph nodes: Unremarkable. No enlarged lymph nodes. Urinary bladder: Unremarkable as visualized. Reproductive: Unremarkable as visualized. Bones/joints: Unremarkable. No acute fracture. Soft tissues: Unremarkable. CT/CT abdomen pelvis w con* [id number] IMPRESSION: 1. Negative for contrast extravasation seen to indicate a source of gastrointestinal bleeding. 2. Hepatic steatosis. 3. Cholecystectomy. 4. Spleen enlarged to 16 cm. 5. Diverticulosis without diverticulitis.
[2024-08-26 21:42] LABS: Alanine Aminotransferase 16 U/L (0-41); Albumin Level 4.2 g/dL (3.5-5.2); Alkaline Phosphatase 90 U/L (40-130); Anion Gap 14.5 (5-19); Aspartate Amino Transferase 14 U/L (0-40); Blood Urea Nitrogen 20 mg/dL (6-20); Calcium 9.5 mg/dL (8.5-10.5); Carbon Dioxide 29 mmol/L (22-29); Chloride 101 mmol/L (98-107); Creatinine Clr Calc Pharmacy 102.2731; Globulin 2.6 g/dL (1.3-4.6); Glomerular Filtration Rate 63.6 mL/min (90-130); Glucose 227 mg/dL (65-115); Osmolality Calculated 300 mOsm/kg (285-295); Potassium 4.5 mmol/L (3.5-5.1); Sodium 140 mmol/L (136-145); Total Bilirubin 0.4 mg/dL (0.15-1.2); Total Protein 6.8 g/dL (6.6-8.7)
[2024-08-26] MEDS: iohexol 350 mg/mL 500 mL Btl (per mL) IV (21:47)
[2024-08-26] MEDS: sodium chloride 0.9% 1,000 ML 999 ML IV (21:54)
[2024-08-26 21:55] VITALS: BP 167/98; PULSE 98; RESP 18; O2SAT 99
[2024-08-26 22:50] VITALS: BP 157/85; PULSE 98; RESP 18; O2SAT 98
== END 2024-08-26 22:51 | disposition home or self-care (01) ==
PROVIDERS: Emergency Provider Emergency Medicine; PCP Family Medicine
DX: K92.2 Gastrointestinal hemorrhage, unspecified (principal)
CPT/HCPCS: 36415; 74177; 80053; 85025; 85610; 96360; 99285; J7030

== ENCOUNTER → 2024-09-05 13:33 | Outpatient (BNVA) | payer MEDICARE, MEDICAID, SELFPAY | PROVIDERS: PCP Family Medicine; Referring Provider Family Medicine; Visit Provider Student in an Organized Health Care Education/Training Program | DX: K92.1 Melena (principal) | CPT/HCPCS: 99204; 99214 ==

== ENCOUNTER → 2024-10-01 11:05 | Outpatient (BNVA) | payer MEDICARE, MEDICAID, SELFPAY | PROVIDERS: PCP Family Medicine; Visit Provider Podiatrist Foot & Ankle Surgery | DX: Z89.432 Acquired absence of left foot (principal); E11.42 Type 2 diabetes mellitus with diabetic polyneuropathy; L60.3 Nail dystrophy; L84 Corns and callosities; R21 Rash and other nonspecific skin eruption; Z79.84 Long term (current) use of oral hypoglycemic drugs | CPT/HCPCS: 11055; 11720; 99213 ==

== ENCOUNTER 2024-11-26 06:24 | Day surgery (SDC) | payer MEDICARE, SELFPAY ==
[2024-11-26 06:48] VITALS: BP 119/76; PULSE 102; RESP 20; TEMP 37.3; O2SAT 94
[2024-11-26] MEDS: sodium chloride 0.9% 500 ML 15 ML IV (07:01)
--- NOTE | 2024-11-26 07:05 | W.PM.OPSFHP ---
Same Day Surgery H&P Indication for Procedure/HPI DATE OF PROCEDURE: November 26, 2024 CHIEF COMPLAINT/INDICATIONFOR SURGICAL PROCEDURE: screening colonoscopy, heartburn PREOP DIAGNOSIS: screening colonoscopy, heartburn PLANNED PROCEDURE: Operation Date: 11/26/24 07:35 Proposed Procedures p EGD 97652, 98015, K92.1(Not Applicable) - Patricio Trejo MD s Colonoscopy(Not Applicable) - Patricio Trejo MD Medications/Allergies* Home Medications Medication Instructions Recorded Confirmed Type fluticasone propionate 50 1 spray intranasal DAILY 10/13/21 11/26/24 History mcg/actuation nasal spray,suspension (Flonase Allergy Relief) metformin 500 mg tablet,extended 500 mg PO BID 05/06/22 11/26/24 History release 24hr (osmotic) lisinopril 10 mg tablet 10 mg PO DAILY 01/08/24 11/26/24 History dulaglutide 1.5 mg/0.5 mL 4.5 mg SUBCUT Q7D 04/02/24 11/21/24 History subcutaneous pen injector (Trulicity) Zinc,Mag,Calcium 1 tab PO BID 11/21/24 11/26/24 History aspirin 81 mg tablet,delayed 81 mg PO DAILY 11/21/24 11/26/24 History release atorvastatin 10 mg tablet 10 mg PO DAILY 11/21/24 11/26/24 History hydrocortisone 2.5 % topical cream 1 applic topical BID PRN 11/21/24 11/21/24 History Hemorrhoids rnlsczwrbqud-ebo-xflem acid-vit 1 tab PO DAILY 11/21/24 11/26/24 History K-lycop 400 mcg-20 mcg-370 mcg tablet (Men's 50 Plus Multivitamin) omeprazole 20 mg capsule,delayed 20 mg PO DAILY 11/21/24 11/26/24 History release psyllium husk 0.4 gram capsule 0.4 g PO DAILY 11/21/24 11/21/24 History (Metamucil) ropinirole 2 mg tablet 2 mg PO BEDTIME 11/21/24 11/26/24 History vitamin B complex 1 tab PO DAILY 11/21/24 11/26/24 History Allergies/Adverse Reactions Allergy/AdvReac Type Severity Reaction Status Date / Time shellfish derived Allergy Mild Nausea and Verified 10/01/24 11:12 Vomiting Current Medications: Generic Name Dose Route Start Last Admin Trade Name Freq PRN Reason Stop Dose Admin Sodium Chloride 500 mls @ 15 mls/hr 11/26/24 06:27 11/26/24 07:01 Sodium Chloride 0.9% IV 11/27/24 06:26 15 mls/hr .Q24H PRN Administration COLONOSCOPY FLUIDS Pertinent History/Comorbid Conditions* Medical History (Updated 09/03/24 @ 00:00 by MIGUE Venegas) Rash Peroneal tendonitis Abscess of leg, left 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 H/O drainage of abscess Diabetes Surgical History (Updated 04/20/23 @ 15:58 by Chet Sena DO) History of cholecystectomy Hx of appendectomy Status post transmetatarsal amputation of left foot Family History (Updated 07/06/22 @ 14:01 by Rose Jenkins LPN) Diabetes Father Grandmother Family/Other Cancer Mother Stage 1 colon cancer Stroke Grandfather Denies family history of CAD (coronary artery disease) Clotting disorder Dementia Hyperlipidemia Psychiatric illness Chronic kidney disease (CKD) Suicide Anesthesia complication Bleeding disorder Family history of premature coronary artery disease Lung disease Hypertension Social History Smoking and tobacco/nicotine status: unknown if used tobacco/nicotine Quit status (tobacco/nicotine): has quit using Year quit tobacco: 6 years ago Alcohol intake: current Alcohol intake frequency: holidays/special occasions only Substance/Drug Use: never Pertinent Exam Findings alert, oriented x 3, clear to auscultation bilaterally, regular rate & rhythm and procedure specific exam findings abdomen soft, nt, nd Recommendations Surgery/Procedure today Coding Level of Care Code Acute Code for Hannah Fwfrank
--- NOTE | 2024-11-26 07:41 | ANES.PREANE2 ---
Pre-Anesthetic Assessment Height/Weight: Height 1.91 m Weight 122.924 kg Temp Pulse Resp BP Pulse Ox O2 Del Method 99.2 F 102 H 20 H 119/76 94 Nasal Cannula 11/26/24 06:48 11/26/24 06:48 11/26/24 06:48 11/26/24 06:48 11/26/24 06:48 11/26/24 06:48 Preop Diagnosis: screening colonoscopy, heartburn Operation Date: 11/26/24 07:35 Proposed Procedures p EGD 62338, 67206, K92.1(Not Applicable) - Patricio Trejo MD s Colonoscopy(Not Applicable) - Patricio Trejo MD Familial anesthetic complications: none Was [place] taken within 24 hours: N/A Was Clonidine taken within 24 hours: N/A Last intake: Intake Last Liquid Date 11/25/24 Last Liquid Time 23:59 Last Solid Date 11/24/24 Last Solid Time 21:00 Social No alcohol and No tobacco Exam alert and oriented x 3 Airway Submandibular: within normal limits Cervical ROM: within normal limits Mallampati: Class IV Dentition: false Pulmonary Asthma (allergies), Exertional Dyspnea and Shortness of Breath CV/HEM Hypertension None reported Hepatic None reported GI Gastroesophageal Reflux Disease Metabolic Diabetes Mellitus and Hyperlipidemia [facility] [place] None reported Neuropsych None reported Anesthetic Plan ASA status: 3 Anesthesia: Anesthesia Evaluation and MAC Medications/Allergies Home Medications Medication Instructions Recorded Confirmed Last Taken Type Toe filler left foot #1 ea 04/22/20 10/01/24 Unknown Rx fluticasone propionate 50 1 spray intranasal DAILY 10/13/21 11/26/24 11/25/24 History mcg/actuation nasal spray,suspension (Flonase Allergy Relief) Diabetic shoes #1 ea 04/05/22 11/21/24 11/21/24 Rx AFO to left #1 ea 04/13/22 11/21/24 11/21/24 Rx Off loading modification for #1 ea 04/13/22 11/21/24 11/21/24 Rx patients AFO sub 4th metatarsal head. metformin 500 mg tablet,extended 500 mg PO BID 05/06/22 11/26/24 11/25/24 History release 24hr (osmotic) Diabetic shoe with toe filler #1 ea 10/12/22 11/21/24 11/21/24 Rx accomadative orthotic bilaterally #1 ea 09/18/23 11/21/24 11/21/24 Rx with toe filler to the left and diabetic shoes albuterol sulfate 90 mcg/actuation 2 inh inhalation Q4H PRN shortness 01/08/24 11/21/24 11/21/24 Rx aerosol inhaler of breath or wheezing #18 grams lisinopril 10 mg tablet 10 mg PO DAILY 01/08/24 11/26/24 11/25/24 History dulaglutide 1.5 mg/0.5 mL 4.5 mg SUBCUT Q7D 04/02/24 11/21/24 11/19/24 History subcutaneous pen injector ([facility]) Zinc,Mag,Calcium 1 tab PO BID 11/21/24 11/26/24 11/25/24 History aspirin 81 mg tablet,delayed 81 mg PO DAILY 11/21/24 11/26/24 11/25/24 History release atorvastatin 10 mg tablet 10 mg PO DAILY 11/21/24 11/26/24 11/25/24 History hydrocortisone 2.5 % topical cream 1 applic topical BID PRN 11/21/24 11/21/24 11/21/24 History Hemorrhoids jfxiiecruwfx-pam-jespd acid-vit 1 tab PO DAILY 11/21/24 11/26/24 11/25/24 History K-lycop 400 mcg-20 mcg-370 mcg tablet (Men's 50 Plus Multivitamin) omeprazole 20 mg capsule,delayed 20 mg PO DAILY 11/21/24 11/26/24 11/25/24 History release psyllium husk 0.4 gram capsule 0.4 g PO DAILY 11/21/24 11/21/24 11/21/24 History (Metamucil) ropinirole 2 mg tablet 2 mg PO BEDTIME 11/21/24 11/26/24 11/25/24 History vitamin B complex 1 tab PO DAILY 11/21/24 11/26/24 11/25/24 History Allergies Allergy/AdvReac Type Severity Reaction Status Date / Time shellfish derived Allergy Mild Nausea and Verified 10/01/24 11:12 Vomiting Current Medications Generic Name Dose Route Start Last Admin Trade Name Freq PRN Reason Stop Dose Admin Sodium Chloride 500 mls @ 15 mls/hr 11/26/24 06:27 11/26/24 07:01 Sodium Chloride 0.9% IV 11/27/24 06:26 15 mls/hr .Q24H PRN Administration COLONOSCOPY FLUIDS PFSH Anesthesia Medical History Rash Peroneal tendonitis Abscess of leg, left 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 H/O drainage of abscess Diabetes Surgical History History of cholecystectomy Hx of appendectomy Status post transmetatarsal amputation of left foot Family History Father Diabetes Grandmother Diabetes Family/Other Diabetes Grandfather Stroke Mother Cancer Stage 1 colon cancer Denies family history of CAD (coronary artery disease) Clotting disorder Dementia Hyperlipidemia Psychiatric illness Chronic kidney disease (CKD) Suicide Anesthesia complication Bleeding disorder Family history of premature coronary artery disease Lung disease Hypertension Social History Smoking and tobacco/nicotine status: unknown if used tobacco/nicotine Quit status (tobacco/nicotine): has quit using Year quit tobacco: 6 years ago Alcohol intake: current Alcohol intake frequency: holidays/special occasions only Substance/Drug Use: never Data Anesthesia Cardiac Studies: Echocardiogram Ultrasound 05/05/20 Holter Monitor 06/15/20
[2024-11-26 08:02] VITALS: BP 99/70; PULSE 98; RESP 18; TEMP 36.3; O2SAT 91
[2024-11-26 08:13] VITALS: BP 102/70; PULSE 93; RESP 18; TEMP 36.2; O2SAT 93
--- NOTE | 2024-11-26 08:23 | ANE.PACU2 ---
Inpatient post-anesthesia follow up: Airway intact: Yes Vital signs: Temperature 97.2 F Pulse Rate 93 Respiratory Rate 18 Blood Pressure 102/70 Pulse Oximetry 93 Oxygen Delivery Me thod Room Air Oxygen Flow Rate Fraction of Inspir ed Oxygen Hydration adequate: Yes Nausea and vomiting: No Pain level: 1 Mental status: Baseline
[2024-11-26 09:25] LABS: Glucose Point of Care 204 mg/dL (70-110)
== END 2024-11-26 08:35 | disposition home or self-care (01) ==
PROVIDERS: PCP Family Medicine; Visit Provider Student in an Organized Health Care Education/Training Program
PROC: 0DJ08ZZ Inspection of Upper Intestinal Tract, Via Natural or Artificial Opening Endoscopic (ICD-10-PCS; principal; 2024-11-26 07:35)
PROC: 0DJD8ZZ Inspection of Lower Intestinal Tract, Via Natural or Artificial Opening Endoscopic (ICD-10-PCS; CPT 45330; 2024-11-26 07:35)
DX: Z12.11 Encounter for screening for malignant neoplasm of colon (principal); R12 Heartburn; K29.70 Gastritis, unspecified, without bleeding; E11.9 Type 2 diabetes mellitus without complications; Z87.891 Personal history of nicotine dependence; J45.909 Unspecified asthma, uncomplicated; K21.9 Gastro-esophageal reflux disease without esophagitis; E78.5 Hyperlipidemia, unspecified
CPT/HCPCS: 36416; 43239; 45330; 82962; 88305; J2704; J7040

== ENCOUNTER → 2024-12-02 09:34 | Outpatient (BNVA) | payer MEDICARE, SELFPAY | PROVIDERS: PCP Family Medicine; Visit Provider Podiatrist Foot & Ankle Surgery | DX: E11.42 Type 2 diabetes mellitus with diabetic polyneuropathy; L60.3 Nail dystrophy; E11.621 Type 2 diabetes mellitus with foot ulcer; L97.522 Non-pressure chronic ulcer of other part of left foot with fat layer exposed; Z89.432 Acquired absence of left foot; S90.32XA Contusion of left foot, initial encounter; X58.XXXA Exposure to other specified factors, initial encounter; Z79.84 Long term (current) use of oral hypoglycemic drugs | CPT/HCPCS: 11042; 11720; 73630; 99213 ==

== ENCOUNTER → 2024-12-12 08:30 | Outpatient (BNVA) | payer MEDICARE, SELFPAY | PROVIDERS: PCP Family Medicine; Visit Provider Student in an Organized Health Care Education/Training Program | DX: Z09 Encounter for follow-up examination after completed treatment for conditions other than malignant neoplasm (principal) | CPT/HCPCS: 99213 ==

== ENCOUNTER → 2024-12-19 09:22 | Outpatient (BNVA) | payer MEDICARE, SELFPAY | PROVIDERS: PCP Family Medicine; Visit Provider Podiatrist Foot & Ankle Surgery | DX: Z89.432 Acquired absence of left foot (principal); E11.42 Type 2 diabetes mellitus with diabetic polyneuropathy; L97.522 Non-pressure chronic ulcer of other part of left foot with fat layer exposed; E11.621 Type 2 diabetes mellitus with foot ulcer; Z79.84 Long term (current) use of oral hypoglycemic drugs | CPT/HCPCS: 99213 ==

== ENCOUNTER → 2025-01-09 10:38 | Outpatient (BNVA) | payer MEDICARE, SELFPAY | PROVIDERS: PCP Family Medicine; Visit Provider Podiatrist Foot & Ankle Surgery | DX: E11.621 Type 2 diabetes mellitus with foot ulcer (principal); L97.522 Non-pressure chronic ulcer of other part of left foot with fat layer exposed; Z89.432 Acquired absence of left foot; E11.42 Type 2 diabetes mellitus with diabetic polyneuropathy; Z79.84 Long term (current) use of oral hypoglycemic drugs | CPT/HCPCS: 11042 ==

== ENCOUNTER → 2025-02-06 09:42 | Outpatient (BNVA) | payer MEDICARE, SELFPAY | PROVIDERS: PCP Family Medicine; Visit Provider Podiatrist Foot & Ankle Surgery | DX: E11.621 Type 2 diabetes mellitus with foot ulcer (principal); L97.522 Non-pressure chronic ulcer of other part of left foot with fat layer exposed; Z89.432 Acquired absence of left foot; E11.42 Type 2 diabetes mellitus with diabetic polyneuropathy; Z79.84 Long term (current) use of oral hypoglycemic drugs | CPT/HCPCS: 11042 ==

== ENCOUNTER → 2025-02-26 08:08 | Outpatient (BNVA) | payer MEDICARE, SELFPAY | PROVIDERS: PCP Family Medicine; Visit Provider Podiatrist Foot & Ankle Surgery | DX: Z89.432 Acquired absence of left foot (principal); E11.42 Type 2 diabetes mellitus with diabetic polyneuropathy; E11.621 Type 2 diabetes mellitus with foot ulcer; L97.522 Non-pressure chronic ulcer of other part of left foot with fat layer exposed; Z79.84 Long term (current) use of oral hypoglycemic drugs | CPT/HCPCS: 29445 ==

== ENCOUNTER → 2025-03-05 07:36 | Outpatient (BNVA) | payer MEDICARE, SELFPAY | PROVIDERS: PCP Family Medicine; Visit Provider Podiatrist Foot & Ankle Surgery | DX: E11.621 Type 2 diabetes mellitus with foot ulcer (principal); Z89.432 Acquired absence of left foot; E11.42 Type 2 diabetes mellitus with diabetic polyneuropathy; L97.522 Non-pressure chronic ulcer of other part of left foot with fat layer exposed; Z79.84 Long term (current) use of oral hypoglycemic drugs | CPT/HCPCS: 29445 ==

== ENCOUNTER 2025-03-12 09:27 | Outpatient (CLI) | payer MEDICARE, SELFPAY | END 2025-03-12 09:28 | disposition home or self-care (01) | LOC: SPT 09:27 | PROVIDERS: PCP Family Medicine; Visit Provider Podiatrist Foot & Ankle Surgery | DX: Z46.89 Encounter for fitting and adjustment of other specified devices (principal); L97.522 Non-pressure chronic ulcer of other part of left foot with fat layer exposed; Z89.432 Acquired absence of left foot; E11.42 Type 2 diabetes mellitus with diabetic polyneuropathy | CPT/HCPCS: 97760; L4361 ==

== ENCOUNTER → 2025-03-27 07:35 | Outpatient (BNVA) | payer MEDICARE, SELFPAY | PROVIDERS: PCP Family Medicine; Visit Provider Podiatrist Foot & Ankle Surgery | DX: Z89.432 Acquired absence of left foot (principal); E11.42 Type 2 diabetes mellitus with diabetic polyneuropathy; E11.621 Type 2 diabetes mellitus with foot ulcer; L97.522 Non-pressure chronic ulcer of other part of left foot with fat layer exposed; Z79.84 Long term (current) use of oral hypoglycemic drugs | CPT/HCPCS: 99213 ==

== ENCOUNTER → 2025-04-16 08:29 | Outpatient (BNVA) | payer MEDICARE, SELFPAY | PROVIDERS: PCP Family Medicine; Visit Provider Podiatrist Foot & Ankle Surgery | DX: L97.923 Non-pressure chronic ulcer of unspecified part of left lower leg with necrosis of muscle (principal) | CPT/HCPCS: 87070; 87075; 87205 ==

== ENCOUNTER → 2025-04-23 10:24 | Outpatient (BNVA) | payer MEDICARE, SELFPAY | PROVIDERS: PCP Family Medicine; Visit Provider Podiatrist Foot & Ankle Surgery | DX: E11.621 Type 2 diabetes mellitus with foot ulcer (principal); L97.923 Non-pressure chronic ulcer of unspecified part of left lower leg with necrosis of muscle; Z89.432 Acquired absence of left foot; E11.42 Type 2 diabetes mellitus with diabetic polyneuropathy; L03.116 Cellulitis of left lower limb; Z79.84 Long term (current) use of oral hypoglycemic drugs | CPT/HCPCS: 99213 ==

== ENCOUNTER 2025-05-13 06:19 | Day surgery (SDC) | payer MEDICARE, SELFPAY ==
[2025-05-13 06:36] VITALS: BP 118/77; PULSE 88; RESP 18; TEMP 36.5; O2SAT 97; BMI 31.6
[2025-05-13] MEDS: sodium chloride 0.9% 1,000 ML 15 ML IV (06:48)
[2025-05-13 06:53] LABS: Glucose Point of Care 149 mg/dL (70-110)
--- NOTE | 2025-05-13 07:55 | W.PM.OPSFHP ---
Same Day Surgery H&P Indication for Procedure/HPI DATE OF PROCEDURE: May 13, 2025 CHIEF COMPLAINT/INDICATIONFOR SURGICAL PROCEDURE: screening colonoscopy PREOP DIAGNOSIS: screening colonoscopy PLANNED PROCEDURE: Operation Date: 05/13/25 07:45 Proposed Procedures p Colonoscopy 07839 G0121 Z12.11(Not Applicable) - Patricio Trejo MD Medications/Allergies* Home Medications ?Medication ?Instructions ?Recorded ?Confirmed ?Type fluticasone propionate 50 1 spray intranasal DAILY 10/13/21 05/12/25 History mcg/actuation nasal spray,suspension (Flonase Allergy Relief) metformin 500 mg tablet,extended 500 mg PO BID 05/06/22 05/12/25 History release 24hr (osmotic) lisinopril 10 mg tablet 10 mg PO DAILY 01/08/24 05/12/25 History Zinc,Mag,Calcium 1 tab PO BID 11/21/24 05/12/25 History aspirin 81 mg tablet,delayed 81 mg PO DAILY 11/21/24 05/12/25 History release atorvastatin 10 mg tablet 10 mg PO DAILY 11/21/24 05/12/25 History fbyauyfyhumv-avb-hnnvo acid-vit 1 tab PO DAILY 11/21/24 05/12/25 History K-lycop 400 mcg-20 mcg-370 mcg tablet (Men's 50 Plus Multivitamin) omeprazole 20 mg capsule,delayed 20 mg PO DAILY 11/21/24 05/12/25 History release ropinirole 2 mg tablet 2 mg PO BEDTIME 11/21/24 05/12/25 History vitamin B complex 1 tab PO DAILY 11/21/24 05/12/25 History empagliflozin 10 mg tablet 10 mg PO DAILY Diabetes 03/12/25 05/12/25 History (Jardiance) semaglutide 1 mg/dose (4 mg/3 mL) 1 mg SUBCUT .WEEKLY Diabetes 03/12/25 05/12/25 History subcutaneous pen injector (Ozempic) Allergies/Adverse Reactions Allergy/AdvReac Type Severity Reaction Status Date / Time shellfish derived Allergy Mild Nausea and Verified 05/13/25 06:33 Vomiting Current Medications: Generic Name Dose Route Start Last Admin Trade Name Freq PRN Reason Stop Dose Admin Sodium Chloride 1,000 mls @ 15 mls/hr 05/13/25 06:22 05/13/25 06:48 Sodium Chloride 0.9% IV 05/14/25 06:21 15 mls/hr .Q24H PRN Administration COLONOSCOPY FLUIDS Pertinent History/Comorbid Conditions* Medical History (Updated 04/20/25 @ 16:11 by Darin Dewitt DPM) Rash Peroneal tendonitis Abscess of leg, left 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 H/O drainage of abscess Diabetes Surgical History (Updated 04/20/23 @ 15:58 by Chet Sena DO) History of cholecystectomy Hx of appendectomy Status post transmetatarsal amputation of left foot Family History (Updated 07/06/22 @ 14:01 by Rose Jenkins LPN) Diabetes Father Grandmother Family/Other Cancer Mother Stage 1 colon cancer Stroke Grandfather Denies family history of CAD (coronary artery disease) Clotting disorder Dementia Hyperlipidemia Psychiatric illness Chronic kidney disease (CKD) Suicide Anesthesia complication Bleeding disorder Family history of premature coronary artery disease Lung disease Hypertension Social History Smoking and tobacco/nicotine status: former use of tobacco/nicotine Quit status (tobacco/nicotine): has quit using Year quit tobacco: 6 years ago Alcohol intake: current Alcohol intake frequency: holidays/special occasions only Substance/Drug Use: never Pertinent Exam Findings alert, oriented x 3, clear to auscultation bilaterally, regular rate & rhythm and procedure specific exam findings abdomen soft, nt, nd Recommendations Risks and benefits of procedure reviewed and Patient/family agree to proceed Surgery/Procedure today Coding Level of Care Code Acute Code for Marvg Fwfrank
[2025-05-13 08:16] VITALS: BP 101/64; PULSE 80; RESP 16; TEMP 36.3; O2SAT 98
[2025-05-13 08:27] VITALS: BP 92/60; PULSE 82; RESP 16; O2SAT 97
--- NOTE | 2025-05-13 08:45 | ANE.PACU2 ---
Inpatient post-anesthesia follow up: Airway intact: Yes Vital signs: Temperature 97.3 F Pulse Rate 82 Respiratory Rate 16 Blood Pressure 92/60 Pulse Oximetry 97 Oxygen Delivery Me thod Room Air Oxygen Flow Rate Fraction of Inspir ed Oxygen Hydration adequate: Yes Nausea and vomiting: No Pain level: 1 Mental status: Baseline
--- NOTE | 2025-05-13 11:30 | ANES.PREANE2 ---
Pre-Anesthetic Assessment Height/Weight: Height 1.91 m Weight 114.759 kg Temp Pulse Resp BP Pulse Ox O2 Del Method 97.3 F L 82 16 92/60 97 Room Air 05/13/25 08:16 05/13/25 08:27 05/13/25 08:27 05/13/25 08:27 05/13/25 08:27 05/13/25 08:27 Preop Diagnosis: screening colonoscopy Operation Date: 05/13/25 07:45 Proposed Procedures p Colonoscopy [id number] Z12.11(Not Applicable) - Patricio Trejo MD Familial anesthetic complications: none Was Beta River taken within 24 hours: N/A Was Clonidine taken within 24 hours: N/A Last intake: Intake Last Liquid Date 05/12/25 Last Liquid Time 23:00 Last Solid Date 05/10/25 Last Solid Time 18:00 Social No alcohol and No tobacco Exam alert, oriented x 3, clear to auscultation bilaterally and regular rate & rhythm Airway Submandibular: within normal limits Cervical ROM: within normal limits Mallampati: Class II History/ROS No significant history except as noted CV/HEM Hypertension GI None reported Metabolic Diabetes Mellitus Anesthetic Plan ASA status: 3 Anesthesia: Anesthesia Evaluation and MAC Medications/Allergies Home Medications ?Medication ?Instructions ?Recorded ?Confirmed ?Last Taken ?Type Toe filler left foot #1 04/22/20 05/12/25 Unknown Rx fluticasone propionate 50 1 spray intranasal DAILY 10/13/21 05/12/25 05/11/25 20:00 History mcg/actuation nasal spray,suspension (Flonase Allergy Relief) Diabetic shoes #1 04/05/22 05/12/25 11/21/24 Rx AFO to left #1 04/13/22 05/12/25 11/21/24 Rx Off loading modification for #1 ea 04/13/22 05/12/25 11/21/24 Rx patients AFO sub 4th metatarsal head. metformin 500 mg tablet,extended 500 mg PO BID 05/06/22 05/12/25 05/11/25 20:00 History release 24hr (osmotic) Diabetic shoe with toe filler #1 10/12/22 05/12/25 11/21/24 Rx accomadative orthotic bilaterally #1 09/18/23 05/12/25 11/21/24 Rx with toe filler to the left and diabetic shoes albuterol sulfate 90 mcg/actuation 2 inh inhalation Q4H PRN shortness 01/08/24 05/12/25 05/11/25 20:00 Rx aerosol inhaler of breath or wheezing #18 grams lisinopril 10 mg tablet 10 mg PO DAILY 01/08/24 05/12/25 05/11/25 20:00 History Zinc,Mag,Calcium 1 tab PO BID 11/21/24 05/12/25 05/07/25 History aspirin 81 mg tablet,delayed 81 mg PO DAILY 11/21/24 05/12/25 05/11/25 20:00 History release atorvastatin 10 mg tablet 10 mg PO DAILY 11/21/24 05/12/25 05/11/25 20:00 History qhlgucuwskoi-zfh-gxjjo acid-vit 1 tab PO DAILY 11/21/24 05/12/25 05/11/25 20:00 History K-lycop 400 mcg-20 mcg-370 mcg tablet (Men's 50 Plus Multivitamin) omeprazole 20 mg capsule,delayed 20 mg PO DAILY 11/21/24 05/12/25 05/11/25 20:00 History release ropinirole 2 mg tablet 2 mg PO BEDTIME 11/21/24 05/12/25 05/11/25 20:00 History vitamin B complex 1 tab PO DAILY 11/21/24 05/12/25 05/11/25 20:00 History diabetic shoes with 3 inserts #1 ea 12/02/24 05/12/25 Unknown Rx CAM walker #1 ea 03/12/25 05/12/25 Unknown Rx empagliflozin 10 mg tablet 10 mg PO DAILY Diabetes 03/12/25 05/12/25 05/11/25 20:00 History (Jardiance) semaglutide 1 mg/dose (4 mg/3 mL) 1 mg SUBCUT .WEEKLY Diabetes 03/12/25 05/12/25 05/01/25 History subcutaneous pen injector (Ozempic) polyethylene glycol 3350 17 17 g PO BID 2 days #68 grams 04/02/25 05/12/25 05/11/25 20:00 Rx gram/dose oral powder (Miralax) Allergies Allergy/AdvReac Type Severity Reaction Status Date / Time shellfish derived Allergy Mild Nausea and Verified 05/13/25 06:33 Vomiting PFSH Anesthesia Medical History Rash Peroneal tendonitis Abscess of leg, left 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 H/O drainage of abscess Diabetes Surgical History History of cholecystectomy Hx of appendectomy Status post transmetatarsal amputation of left foot Family History Father Diabetes Grandmother Diabetes Family/Other Diabetes Grandfather Stroke Mother Cancer Stage 1 colon cancer Denies family history of CAD (coronary artery disease) Clotting disorder Dementia Hyperlipidemia Psychiatric illness Chronic kidney disease (CKD) Suicide Anesthesia complication Bleeding disorder Family history of premature coronary artery disease Lung disease Hypertension Social History Smoking and tobacco/nicotine status: former use of tobacco/nicotine Quit status (tobacco/nicotine): has quit using Year quit tobacco: 6 years ago Alcohol intake: current Alcohol intake frequency: holidays/special occasions only Substance/Drug Use: never Data Anesthesia Cardiac Studies: Echocardiogram Ultrasound 05/05/20 Holter Monitor 06/15/20
== END 2025-05-13 08:45 | disposition home or self-care (01) ==
PROVIDERS: PCP Family Medicine; Visit Provider Student in an Organized Health Care Education/Training Program
PROC: 0DJD8ZZ Inspection of Lower Intestinal Tract, Via Natural or Artificial Opening Endoscopic (ICD-10-PCS; CPT 45378; principal; 2025-05-13 07:45)
DX: Z12.11 Encounter for screening for malignant neoplasm of colon (principal); E11.9 Type 2 diabetes mellitus without complications; I10 Essential (primary) hypertension; Z79.84 Long term (current) use of oral hypoglycemic drugs; Z79.85 Long-term (current) use of injectable non-insulin antidiabetic drugs; Z79.899 Other long term (current) drug therapy; Z79.82 Long term (current) use of aspirin; Z90.49 Acquired absence of other specified parts of digestive tract; Z87.891 Personal history of nicotine dependence
CPT/HCPCS: 36416; 82962; G0121; J2704; J7030; J9999

== ENCOUNTER → 2025-06-26 11:12 | Outpatient (BNVA) | payer MEDICARE, SELFPAY | PROVIDERS: PCP Family Medicine; Visit Provider Podiatrist Foot & Ankle Surgery | DX: E11.42 Type 2 diabetes mellitus with diabetic polyneuropathy (principal); Z89.432 Acquired absence of left foot; Z79.84 Long term (current) use of oral hypoglycemic drugs; Z79.85 Long-term (current) use of injectable non-insulin antidiabetic drugs | CPT/HCPCS: 99213 ==

== ENCOUNTER → 2025-09-29 09:33 | Outpatient (BNVA) | payer MEDICARE, MEDICAID, SELFPAY | PROVIDERS: PCP Family Medicine; Visit Provider Podiatrist Foot & Ankle Surgery | DX: E11.42 Type 2 diabetes mellitus with diabetic polyneuropathy (principal); E11.8 Type 2 diabetes mellitus with unspecified complications; Z89.432 Acquired absence of left foot; Z79.84 Long term (current) use of oral hypoglycemic drugs | CPT/HCPCS: 99213 ==